=== PATIENT | female | born 1935 | race Caucasian/White ===

== ENCOUNTER 2022-10-19 12:48 | Emergency (ER) | payer OTHER, SELFPAY ==
--- NOTE | ~2022-10-19 | US_ITS ---
EXAMINATION: US venous doppler [facility] DATE: 10/19/2022 14:37 INDICATION: Left lower limb pain. TECHNIQUE: Grayscale ultrasound images without and with compression and Doppler ultrasound images of the left lower extremity veins were obtained. COMPARISON: None. FINDINGS: The visualized portions of left common femoral vein, profunda (deep) femoral vein, popliteal vein, pe roneal veins, posterior tibial veins, and greater saphenous vein outflow are patent. There is thrombu s in left femoral vein. Subcutaneous edema is noted. IMPRESSION: 1. Deep vein thrombosis involving left femoral vein. I called this result to Dr. Gonzalez. Reviewed, dictated and finalized at location A. IMPRESSION: 1. Deep vein thrombosis involving left femoral vein. I called this result to Quiana Gonzalez.
[2022-10-19 12:50] VITALS: BP 152/72; PULSE 70; RESP 16; O2SAT 98
[2022-10-19 13:28] LABS: Basophils Percent Auto 0.6 % (0.2-1.2); Eosinophils Absolute Auto 0.1 K/mm3 (0-0.3); Eosinophils Percent Auto 0.9 % (0-4.4); Hematocrit 34.4 % (37.0-47.0); Hemoglobin 11.1 g/dL (12.0-15.0); Immature Granulocyte Absolute 0.02 K/mm3 (0.00-0.031); Immature Granulocyte Percent A 0.4 % (0-0.5); Mean Corpuscular HGB Conc 32.3 g/dl (32-36); Mean Corpuscular Hemoglobin 32.1 pg (26-34); Mean Corpuscular Volume 99.4 fl (80-100); Mean Platelet Volume 9.2 fl (7.4-10.4); Monocytes Absolute Auto 0.6 K/mm3 (0.1-0.6); Neutrophils Absolute Auto 3.8 K/mm3 (1.3-6.7); Neutrophils Percent Auto 71.1 % (45.5-73.1); Platelet Count Result 144 k/mm3 (150-375); Red Blood Count 3.46 M/mm3 (4.2-5.4); Red Cell Distribution Width 13.2 % (11.5-14.5); White Blood Count 5.3 K/mm3 (4.5-10.0)
--- NOTE | 2022-10-19 13:36 | PC.NURSE ---
[facility] called to get report for US study. VM left for return phone call.
[2022-10-19 13:39] LABS: INR 1.2; Prothrombin Time 15.1 Seconds (11.1-14.7)
[2022-10-19 13:47] LABS: Alanine Aminotransferase 16 U/L (6-35); Albumin Level 3.6 g/dL (3.5-5.1); Alkaline Phosphatase 70 U/L (38-126); Anion Gap 2 mmol/L (8-16); Aspartate Amino Transferase 21 U/L (14-36); Bilirubin,Total 0.5 mg/dL (0.2-1.3); Blood Urea Nitrogen 42 mg/dL (7-17); Calcium 8.4 mg/dL (8.4-10.2); Carbon Dioxide 32 mmol/L (22-30); Chloride 102 mmol/L (98-107); Estimated CRCL calculation 24 ml/min; Estimated Glomerular Filt Rate 28; Glucose 118 mg/dL (65-110); Potassium 4.2 mmol/L (3.4-5.0); Sodium 136 mmol/L (137-145)
--- NOTE | 2022-10-19 14:09 | PC.NURSE ---
Dr. Gonzalez requesting Doppler report from [facility]. Called and they state they do not have a hard copy of the report and that [employer] called them to let them know. Dr. Gonzalez made aware.
--- NOTE | 2022-10-19 14:17 | ED.GENADULT ---
HPI - General Adult General Chief complaint: Extremity Problem,Nontraumatic Stated complaint: dvt Time Seen by Provider: 10/19/22 12:56 Source: RN notes reviewed and other (USP) History of Present Illness HPI narrative: Patient presents emergency department for [facility] via EMS for left leg DVT. The history is limited per the patient as she is a poor historian and we did call the facility and spoke with the facility. Patient had an ultrasound performed at the facility today to evaluate for a left leg DVT secondary to some redness to the patient's leg they were called and told that the ultrasound was positive but they do not actually have a formal report and are unable to send in a report the patient was sent for further evaluation following these findings of DVT. The patient does have a history of being on Eliquis and has a history of DVT in her records the patient currently is laying in bed she has no complaints at this time she denies any chest pain or shortness of breath she denies any pain in her legs Related Data Allergies Allergy/AdvReac Type Severity Reaction Status Date / Time codeine Allergy Other Verified 10/19/22 13:01 Review of Systems Review of Systems: Gen.: Denies fevers Respiratory: Denies shortness of breath CV: Denies chest pain GI: Denies abdominal pain nausea, emesis Musculoskeletal: see HPI Neuro: Denies headache Skin: Reports left leg redness Except as documented, all other systems reviewed and negative [facility] Past Medical History Medical History (Updated 10/19/22 @ 16:05 by Latrell Gonzalez DO) DVT (deep venous thrombosis) Social History Social History (Updated 10/19/22 @ 14:22 by Latrell Gonzalez DO) Smoking status: Never smoker Exam Narrative: APPEARANCE: No acute distress, nontoxic, resting in bed EYES: EOMI HEENT: Normocephalic, atraumatic, RESPIRATORY: No respiratory distress Clear to auscultation bilaterally with no rhonchi wheezing or rales. CARDIOVASCULAR: Regular rate and rhythm without murmurs rubs or gallops. ABDOMINAL: Soft, nontender, nondistended, no rebound or guarding MUSCULOSKELETAl: Moves all extremities. No clubbing, cyanosis 3+ edema of the bilateral lower extremities the left lower extremity has erythema proximal to the left ankle up to the midshin that is over the anterior medial lateral leg but is not over the posterior leg and is not circumferential there is no open wounds or drainage there is no tenderness over the left ankle or knee bilateral dorsalis pedis pulses are 2+ NEURO: Awake and alert. Following commands, speech normal, no focal deficits SKIN:: Warm, dry. No rashes lesions or abrasions PSYCHIATRIC: Normal affect/mood, Course Course Emergency Course: Referred and reviewed group home records the patient has a history of DVT as well as atrial fibrillation she is on Eliquis 2.5 mg twice daily currently. The patient was also started on Keflex Called and discussed with Kalyan presentation work-up at this time as the patient has a DVT recommends that Eliquis be increased to 5 mg twice a day and for the patient to follow-up with him as an outpatient in the office Called and discussed with THELMA Sheldon for Dr. Robb and the patient's PCP discussed the change in Eliquis dose as well as her continued Keflex she agrees with plan for return to facility with follow-up as an outpatient Discussed with patient results of workup and diagnosis. Discussed need for follow-up with primary care, proper use of medication, and reasons to return to the emergency department. Patient understands and agrees to current treatment plan Vital Signs Vital signs: Vital Signs Pulse Rate 70 10/19/22 12:50 Respiratory Rate 16 10/19/22 12:50 Blood Pressure 152/72 H 10/19/22 12:50 Pulse Oximetry 98 10/19/22 12:50 Pulse Rate 70 10/19/22 12:50 Respiratory Rate 16 10/19/22 12:50 Blood Pressure 152/72 H 10/19/22 12:50 Pulse Oximetry 98 10/19/22 12:50
[2022-10-19] MEDS: APIXABAN 5 MG TABLET PO (15:58)
[2022-10-19 15:59] VITALS: BP 159/59; PULSE 66; RESP 18; O2SAT 99
[2022-10-19 18:54] VITALS: BP 150/67; PULSE 89; RESP 20; O2SAT 97
== END 2022-10-19 18:58 ==
PROVIDERS: Emergency Provider Emergency Medicine; PCP Internal Medicine
DX: I82.402 Acute embolism and thrombosis of unspecified deep veins of left lower extremity (principal)
CPT/HCPCS: 36415; 80053; 85025; 85610; 85730; 93971; 99284; A9270

== ENCOUNTER 2023-01-07 15:19 | Emergency (ER) | payer OTHER, SELFPAY ==
--- NOTE | ~2023-01-07 | XR_ITS ---
EXAMINATION: XR tibia fibula LT 2V DATE: 01/07/2023 16:47 INDICATION: Fall with skin tear at the left lower leg TECHNIQUE: Anteroposterior and lateral views of the left tibia and fibula were obtained. COMPARISON: None. FINDINGS: Laceration at the anterolateral distal left lower leg. No radiopaque foreign bodies. Bone alignment i s normal. No fracture. Tricompartmental osteoarthritis at the left knee, severe at the lateral compar tment with remodeling of the lateral tibial plateau. Small left knee joint effusion. Mild osteoarthri tis without joint effusion at the left ankle. Additional mild osteoarthritis at a few of the tarsal m etatarsal joints and at the first metatarsophalangeal joint. Small Achilles and plantar calcaneal spu rs. Diffuse subcutaneous edema throughout the left calf. IMPRESSION: 1. Laceration at the anterolateral distal left lower leg. No radiopaque foreign bodies or acute osseo us abnormality. 2. 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 Reviewed, dictated and finalized at location A. IMPRESSION: 1. Laceration at the anterolateral distal left lower leg. No radiopaque foreign bodies or acute osseous abnormality. 2. 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
[2023-01-07 15:23] VITALS: BP 138/60; PULSE 62; RESP 16; O2SAT 99
--- NOTE | 2023-01-07 16:33 | ED.GENADULT ---
HPI - General Adult General Chief complaint: Wound/Laceration <Lupillo Ventura PA-C - Last Filed: 01/07/23 20:52> Stated complaint: leg lac <GUME Holcomb Last Filed: 01/07/23 20:52> Time Seen by Provider: 01/07/23 15:41 <GUME Holcomb Last Filed: 01/07/23 20:52> Source: patient <GUME Holcomb Last Filed: 01/07/23 20:52> Mode of arrival: ambulatory <GUME Holcomb Last Filed: 01/07/23 20:52> Limitations: dementia <GUME Holcomb Last Filed: 01/07/23 20:52> History of Present Illness HPI narrative: History somewhat limited due to underlying dementia. Alert and oriented x2 at baseline. This is a 87-year-old female with PMH of dementia who presents the ED via EMS from [facility] with chief complaint of a left lower leg laceration following an injury this morning. Per EMS she was transferring from wheelchair when she slipped and had the leg go down the side of the chair and skin was caught on a piece of metal. Nursing staff witnessed the fall. They state that she did not hit her head and that she did not lose consciousness. Patient reports pain in the left lower leg only. Denies any further site of injury. She is on Eliquis. Denies numbness, weakness. <Lupillo Ventura PA-C - Last Filed: 01/07/23 20:52> Related Data Allergies/adverse reactions: Allergies Allergy/AdvReac Type Severity Reaction Status Date / Time codeine Allergy Other Verified 01/07/23 19:49 <GUME Holcomb Last Filed: 01/07/23 20:52> Review of Systems Review of Systems: CONSTITUTIONAL: Denies fever, chills, or sweats. EYES: Denies visual changes, redness, or discharge. ENT: Denies rhinorrhea, congestion, sore throat, or otalgia. CARDIOVASCULAR: Denies chest pain, palpitations, or edema. RESPIRATORY: Denies cough or dyspnea. GASTROINTESTINAL: Denies abdominal pain, nausea, vomiting, or diarrhea. GENITOURINARY: Denies dysuria or hematuria. SKIN: See HPI MUSCULOSKELETAL: Denies back pain, joint pain, or myalgia. NEUROLOGIC: Denies headache, numbness, dizziness, or weakness. PSYCHIATRIC: Denies anxiety or depression. <Lupillo Ventura PA-C - Last Filed: 01/07/23 20:52> [facility] Past Medical History Medical History: Medical History (Updated 01/08/23 @ 00:00 by Ayo Law) DVT (deep venous thrombosis) <Lupillo Ventura PA-C - Last Filed: 01/07/23 20:52> Social History Social History: Social History (Updated 10/19/22 @ 14:22 by Latrell Gonzalez DO) Smoking status: Never smoker <Lupillo Ventura PA-C - Last Filed: 01/07/23 20:52> Exam Narrative: GENERAL: Well-appearing, well-nourished, and in no acute distress. HEAD: Normocephalic, atraumatic. EYES: PERRLA and EOMI. ENT: Nares clear, no rhinorrhea or epistaxis. Mucous membranes moist. Oropharynx without tonsillar hypertrophy exudate or other lesions. NECK: Supple. No adenopathy or masses. CHEST: No respiratory distress. Clear to auscultation. No wheezes rales or rhonchi HEART: Regular rate and rhythm. No murmur heard. Normal peripheral pulses. ABDOMEN: Soft, nontender, nondistended, normal active bowel sounds. EXTREMITIES: No tenderness throughout the joints or extremities. Normal range of motion. SKIN: Left lateral calf has a skin flap laceration that is angulated. Approximately 8 cm in total length. Bleeding is controlled. Chronic venous stasis changes to bilateral legs. Otherwise warm, dry, no rash. NEURO: Alert and oriented x2. She is at her baseline status. No focal deficits. PSYCH: Normal mood and affect. <Lupillo Ventura PA-C - Last Filed: 01/07/23 20:52> Course [employer]/PA Physician Supervision For this patient encounter, I reviewed the SERV[employer]ER [employer] or PA documentation, treatment plan, and I was responsible for the medical decision making; and I had [id number] time with this patient. <Toño Nix MD - Last Filed: 01/08/23 18:07> Vital Signs Vital signs: Vital
[2023-01-07 18:08] VITALS: BP 126/61; PULSE 88; RESP 14; O2SAT 100
[2023-01-07 19:28] VITALS: BP 147/71; PULSE 57; RESP 16; TEMP 36.7; O2SAT 99
[2023-01-07 20:15] VITALS: BP 116/73; PULSE 58; RESP 16; O2SAT 98
== END 2023-01-07 20:15 ==
PROVIDERS: Emergency Provider Physician Assistant; PCP Internal Medicine
DX: S81.812A Laceration without foreign body, left lower leg, initial encounter (principal); Z86.718 Personal history of other venous thrombosis and embolism; Z79.01 Long term (current) use of anticoagulants; W05.0XXA Fall from non-moving wheelchair, initial encounter
CPT/HCPCS: 12004; 73590; 99283

== ENCOUNTER 2023-02-08 17:04 | Inpatient (IN) | payer OTHER, SELFPAY ==
[2023-02-08] VITALS (13 sets, daily range): BP systolic 113–148; BP diastolic 51–86; PULSE 100–115; RESP 10–28; TEMP 36.9–38.2; O2SAT 95–98
--- NOTE | ~2023-02-08 | XR_ITS ---
EXAMINATION: XR tibia fibula LT 2V DATE: 02/14/2023 12:11 INDICATION: Left lower leg pain. TECHNIQUE: 2 views of left tibia and fibula on 4 radiograph were obtained. COMPARISON: Left tibia and fibula radiographs 02/08/2023 FINDINGS: There is valgus angulation at the knee. No fracture. The knee demonstrates severe osteoarth ritis of the lateral compartment and mild osteoarthritis of the medial and patellofemoral compartment s. There is diffuse osteopenia. No knee joint effusion. Vascular calcifications are noted. IMPRESSION: 1. Severe left knee osteoarthritis. Reviewed, dictated and finalized at location A.
--- NOTE | ~2023-02-08 | XR_ITS ---
EXAMINATION: XR elbow RT 2V INDICATION: Right elbow pain TECHNIQUE: Two nonstandard views of the right elbow are obtained. COMPARISON: None available FINDINGS: There appears to be an acute transverse fracture of the radial neck. There is moderate to s evere osteoarthritis at the olecranon fossa. No ulnar fracture is identified. IMPRESSION: 1. Possible radial neck fracture, evaluation limited by nonstandard projections. Reviewed, dictated and finalized at location B. IMPRESSION: 1. Possible radial neck fracture, evaluation limited by nonstandard projections .
--- NOTE | ~2023-02-08 | XR_ITS ---
EXAMINATION: XR elbow RT 2V INDICATION: Right elbow pain TECHNIQUE: Two views of the right elbow are obtained. COMPARISON: 02/10/2023 FINDINGS: There is moderate to severe osteoarthritis at the olecranon fossa. Again seen is mild irreg ularity of the radial neck which could reflect a nondisplaced fracture. An old healed fracture of the distal humerus is noted. IMPRESSION: 1. Possible nondisplaced fracture of the radial neck. Reviewed, dictated and finalized at location F.
--- NOTE | ~2023-02-08 | CT_ITS ---
EXAMINATION: CT chest abdomen pelvis wo con DATE: 02/08/2023 19:11 INDICATION: CP, dyspnea . TECHNIQUE: Computed tomography (CT) of the chest, abdomen, and pelvis was performed with 100 mL Omnip aque-350 intravenous contrast. Automated exposure control and iterative reconstruction technique were employed. The dose-length product was 1794.66 mGy-cm. COMPARISON: X-ray chest, same date FINDINGS: CHEST: Thoracic aorta: Anemia. Moderate arch calcification. No significant dilation.. Lung parenchyma and airways: Limited by motion artifact, bibasilar scar/atelectasis. Thoracic inlet, axillae and chest wall: 3.4 cm right thyroid nodule. No axillary lymphadenopathy. Mediastinum: Mild dilation of the central pulmonary arteries as can be seen with pulmonary arterial h ypertension. Calcified hilar nodes. Heart and pericardium: Mild cardiomegaly. No pericardial effusion. Coronary artery calcifications: Mild. Pleura: No effusion or mass. Thoracic bones: No acute osseous finding in the chest. Incompletely visualized, uncomplicated appeari ng left shoulder arthroplasty. ABDOMEN/PELVIS: Abdomen images limited by beam hardening and motion. Liver: Normal. Biliary/Gallbladder: Mild dilation without stone or inflammatory change No bile duct dilation. Pancreas: No mass or duct dilation. Spleen: Normal. Adrenals:No mass. Kidneys: No suspicious mass or hydronephrosis. Bilateral atrophy. GI tract: No small or large bowel dilation. Appendix not visualized. Diverticulosis without diverticu litis. Mesentery/Peritoneum: No ascites, mass, or free air. Retroperitoneum: No mass Atherosclerotic abdominal aortic and/or arterial calcifications. IVC filter, in good position. Pelvis: Absent uterus. Normal appearing urinary bladder. Soft Tissues: Dermal thickening over the left hip with subjacent tortuous vessels, likely representin g a skin lesion such as a hemangioma. Soft tissues and body wall otherwise unremarkable. Abdominopelvic bones: No acute osseous finding in the abdomen/pelvis. IMPRESSION: No acute finding in the chest. 3.4 cm right thyroid nodule, consider outpatient thyroid ultrasound fo r further characterization. Mild gallbladder hydrops, without inflammation. No CT evidence of bowel o bstruction or ileus. Reviewed, dictated and finalized at location K. IMPRESSION: No acute finding in the chest. 3.4 cm right thyroid nodule, consider outpatient thyroid ultrasound for further characterization. Mild gallbladder hydrops, wit hout inflammation. No CT evidence of bowel obstruction or ileus.
--- NOTE | ~2023-02-08 | CT_ITS ---
EXAMINATION: CT diagnostic chest wo con DATE: 02/14/2023 17:14 INDICATION: Hypoxia TECHNIQUE: Computed tomography (CT) of the chest was performed without intravenous contrast. The dose -length product (DLP) was 576.85 mGy-cm. Automated exposure control and iterative reconstruction tech [employer] were employed. COMPARISON: 02/08/2023 FINDINGS: Cardiomegaly is noted. There are small pleural effusions. There is mild dependent atelectas is. No pneumothorax is identified. There are no pathologically enlarged thoracic lymph nodes. Calcifi ed coronary artery atherosclerosis is noted. There are changes of left shoulder arthroplasty. There i s moderate to severe osteoarthritis of the right shoulder. There are bridging osteophytes at multiple levels in the spine, consistent with diffuse idiopathic skeletal hyperostosis (DISH). IMPRESSION: 1. Cardiomegaly. 2. Mild dependent atelectasis. Reviewed, dictated and finalized at location F.
--- NOTE | ~2023-02-08 | XR_ITS ---
EXAM: XR tibia fibula LT 2V DATE: 02/08/2023 18:19 HISTORY: open wound to distal anterolateral tib fib . COMPARISON: 01/07/2023. FINDINGS: Severely decreased mineralization. No fracture or dislocation. No lytic or blastic lesion. Severe degenerative change at the left knee. Mild degenerative change in the left ankle. No erosion or periosteal change. Lateral soft tissue defect over the distal tibia/fibula. Diffuse subcutaneous e david. IMPRESSION: No acute osseous finding in the left tibia/fibula. Reviewed, dictated and finalized at location K.
--- NOTE | ~2023-02-08 | XR_ITS ---
EXAMINATION: XR shoulder RT min 2V DATE: 02/14/2023 13:15 INDICATION: Right shoulder fracture. TECHNIQUE: 5 views of right shoulder were obtained. COMPARISON: None. FINDINGS: Bone alignment is normal. There is an old healed fracture of distal humerus. There is sever e osteoarthritis of glenohumeral joint and acromioclavicular joint. IMPRESSION: 1. Polyarticular osteoarthritis. Reviewed, dictated and finalized at location A.
--- NOTE | ~2023-02-08 | XR_ITS ---
EXAMINATION: XR chest 1V portable DATE: 02/14/2023 12:11 INDICATION: Shortness of breath. TECHNIQUE: A single frontal view of the chest was obtained. COMPARISON: Chest single view 02/08/2023, chest CT 02/08/2023 FINDINGS: There is mild atelectasis in the right lower lung zone. Calcified left hilar lymph nodes ar e consistent with old granulomatous disease. No pleural effusion or pneumothorax. Cardiomegaly is not ed. There is a left shoulder arthroplasty. IMPRESSION: 1. Mild atelectasis in right lower lung zone. 2. Cardiomegaly. Reviewed, dictated and finalized at location A.
--- NOTE | ~2023-02-08 | XR_ITS ---
EXAMINATION: XR chest 1V portable Exam Date/Time: 02/08/2023 17:15 CDT HISTORY: dyspnea Comparison: None. RESULT: Lines, tubes, and devices: Uncomplicated partially visualized left shoulder arthroplasty. Lungs and pleura: Cephalized vessels as can be seen with pulmonary vascular congestion. Senescent ch anges. No focal consolidation. Streaky bibasilar atelectasis/scar. Cardiomediastinal silhouette: Heart size accentuated by technique. Calcified hilar nodes. Other: No acute osseous finding. Multiple loops of borderline dilated small bowel in the upper abdom en. IMPRESSION: Pulmonary vascular congestion. Multiple borderline dilated upper abdominal small bowel loops, may rep resent ileus/obstruction, consider three-view abdominal series for confirmation. Reviewed, dictated and finalized at location K. IMPRESSION: Pulmonary vascular congestion. Multiple borderline dilated upper abdominal smal l bowel loops, may represent ileus/obstruction, consider three-view abdominal s eries for confirmation.
--- NOTE | 2023-02-08 17:15 | ECG_ITS ---
Measurements Intervals [place] Rate: 106 P: 70 NE: 183 QRS: -7 QRSD: 105 T: 7 QT: 329 QTc: 438 Interpretive Statements SINUS TACHYCARDIA BORDERLINE T WAVE ABNORMALITY- INFERIOR LEADS BASELINE ARTIFACT- I, II, III, AVR, AVL, AVF, V1, V3-V6 ABNORMAL ECG NO PREVIOUS ECG AVAILABLE FOR COMPARISON Electronically Signed On 02-08-2023 18:07:11 CDT by Mayito Gutiérrez D.O.
--- NOTE | 2023-02-08 17:31 | ED.SOB ---
HPI - SOB/Dyspnea General Chief Complaint: Shortness of Breath/Dyspnea <Yasemin Grullon PA-C - Last Filed: 02/09/23 00:26> Stated Complaint: SOB <Yasemin Grullon PA-C - Last Filed: 02/09/23 00:26> Time Seen by Provider: 02/08/23 17:15 <Yasemin Grullon PA-C - Last Filed: 02/09/23 00:26> History of Present Illness HPI Narrative: 87-year-old female with a history of CHF, COPD, DVT reports via EMS from [facility] and rehab for evaluation of acute onset shortness of breath that occurred 3.5 hours prior to arrival. Patient is complaining of difficulty breathing and intermittent anterior chest pain that radiates to her back started on the onset of symptoms. She was given a neb treatment per senior care and a neb treatment en route without relief. She was put on 2L of O2 in the room and satting 97%. She reports she does not normally wear oxygen at baseline. Pt reports increased swelling in her legs and an intermittent cough. Denies fever, abdominal pain, n/v/d. Last BM was yesterday. <Yasemin Grullon PA-C - Last Filed: 02/09/23 00:26> Related Data Home Medications: Home Medications Medication Instructions Recorded Confirmed Dulcolax (bisacodyl) 10 mg PO DAILY 02/08/23 02/08/23 Klor-Con 10 10 meq PO DAILY 02/08/23 02/08/23 Miralax 17 g PO DAILY 02/08/23 02/08/23 Voltaren 1 % topical BID 02/08/23 02/08/23 amiodarone 100 mg tablet 100 mg PO DAILY 02/08/23 02/08/23 aspirin 81 mg PO DAILY 02/08/23 02/08/23 cholecalciferol (vitamin D3) 1,000 unit PO DAILY 02/08/23 02/08/23 citalopram 20 mg tablet 20 mg PO DAILY 02/08/23 02/08/23 ferrous sulfate 352 mg PO DAILY 02/08/23 02/08/23 furosemide 20 mg tablet 60 mg PO DAILY 02/08/23 02/08/23 ipratropium-albuterol 3 ml inhalation QID 02/08/23 02/08/23 magnesium 500 mg PO DAILY 02/08/23 02/08/23 silver sulfadiazine 1 % topical DAILY 02/08/23 02/08/23 spironolactone 25 mg tablet 25 mg PO DAILY 02/08/23 02/08/23 <Yasemin Grullon PA-C - Last Filed: 02/09/23 00:26> Allergies/Adverse Reactions: Allergies Allergy/AdvReac Type Severity Reaction Status Date / Time codeine Allergy Other Verified 02/08/23 17:23 <Yasemin Grullon PA-C - Last Filed: 02/09/23 00:26> Review of Systems Review of Systems: CONSTITUTIONAL: Denies fever, chills EYES: Denies visual changes, redness, or discharge. ENT: Denies rhinorrhea, congestion, sore throat, or otalgia. CARDIOVASCULAR: See HPI RESPIRATORY: See HPI GASTROINTESTINAL: Denies abdominal pain, nausea, vomiting, or diarrhea. GENITOURINARY: Denies dysuria or hematuria. SKIN: Denies rash or itching. MUSCULOSKELETAL: See HPI NEUROLOGIC: Denies headache, numbness, dizziness, or weakness. PSYCHIATRIC: Denies anxiety or depression. <Yasemin Grullon PA-C - Last Filed: 02/09/23 00:26> [facility] Past Medical History Medical History: Medical History (Updated 02/11/23 @ 08:33 by Srinivas Stone MD) Arthritis of elbow, right, degenerative CHF (congestive heart failure) COPD (chronic obstructive pulmonary disease) DVT (deep venous thrombosis) 10/19/22 Left lower extremity venous Doppler showed DVT involving left femoral vein. Previously on Eliquis with dose increased. History of atrial fibrillation <Yasemin Grullon PA-C - Last Filed: 02/09/23 00:26> Social History Social History: Social History Smoking status: Never smoker Alcohol intake: never Substance use: never Substance use type: does not use Lack of Transportation: No Lack of Food: Never True Current Housing: I Have Housing Concerned About Future Housing: No Difficulty Paying Gas/Electric Bills: No Difficulty Paying for Meds: No Currently Unemployed: No Education: High School Diploma/GED Difficulty w/ Childcare or Family Care: No Spiritual care concerns: No <Yasemin Grullon PA-C - Last Filed: 02/09/23 00:26> Exam Narrative: GENERAL: Patient
[2023-02-08] MEDS: IPRATROPIUM BR 0.02% INH SOLN 0.5 MG/2.5 ML VIAL INHALATION (17:50)
[2023-02-08] MEDS: ALBUTEROL SULFATE NEB 2.5 MG/3 ML INH INHALATION (17:50)
[2023-02-08 17:56] LABS: Basophils Percent Auto 0.2 % (0.2-1.2); Eosinophils Percent Auto 0.1 % (0-4.4); Hematocrit 31.2 % (37.0-47.0); Hemoglobin 9.3 g/dL (12.0-15.0); Immature Granulocyte Absolute 0.05 K/mm3 (0.00-0.031); Immature Granulocyte Percent A 0.5 % (0-0.5); Lymphocytes Absolute Auto 1.62 K/mm3 (0.9-3.2); Lymphocytes Percent Auto 17.5 % (18.3-44.2); Mean Corpuscular HGB Conc 29.8 g/dl (32-36); Mean Corpuscular Hemoglobin 30.2 pg (26-34); Mean Corpuscular Volume 101.3 fl (80-100); Mean Platelet Volume 9.4 fl (7.4-10.4); Monocytes Absolute Auto 0.7 K/mm3 (0.1-0.6); Monocytes Percent Auto 7.7 % (2.6-8.5); Neutrophils Absolute Auto 6.9 K/mm3 (1.3-6.7); Platelet Count Result 190 k/mm3 (150-375); Red Blood Count 3.08 M/mm3 (4.2-5.4); Red Cell Distribution Width 15.2 % (11.5-14.5); White Blood Count 9.3 K/mm3 (4.5-10.0)
[2023-02-08 17:56] LABS: Alveolar/Arterial O2 Gradient 89.9 mmHg; Base Excess ABG -1.7 mEq/l (+/-2.0); Fractional Inspired Oxygen 28 %; HCO3 ABG 21.9 mEq/l (22.0-26.0); Oxygen Content ABG 16.3 %vol (16.0-22.0); Oxygen Saturation ABG 94.7 % (95.0-100.0); Oxyhemoglobin 92.7 % THb (90.0-100.0); PCO2 ABG 33.7 mmHg (35.0-45.0); Total Hemoglobin 12.5 g/dL (12.0-18.0); pH ABG 7.431 (7.350-7.450)
[2023-02-08] MEDS: ASPIRIN 81 MG CHEWABLE TABLET 324 MG PO (17:56)
[2023-02-08] MEDS: MAGNESIUM SULF 2 GM/WATER 50ML 2 GM/50 ML BAG IVPB (17:57)
[2023-02-08 17:58] LABS: Device NASAL CANNULA; Modified Allen's Test Pass; Site Drawn RIGHT RADIAL
[2023-02-08 18:10] LABS: Lactic Acid Reflex 2.3 mmol/L (0.7-2.0)
[2023-02-08 18:16] LABS: Platelet Estimate Adequate (Adequate); Schistocytes None Seen (NORMAL)
[2023-02-08 18:17] LABS: Anisocytosis 1+ (NORMAL); Hypochromasia 1+ (NORMAL); INR 1.5; Prothrombin Time 18.9 Seconds (11.1-14.7)
[2023-02-08 18:18] LABS: Partial Thromboplastin Time 32.3 SECONDS (22.3-36.8)
[2023-02-08 18:50] LABS: Alanine Aminotransferase 17 U/L (6-35); Albumin Level 3.9 g/dL (3.5-5.1); Alkaline Phosphatase 66 U/L (38-126); Anion Gap 11 mmol/L (8-16); Aspartate Amino Transferase 26 U/L (14-36); Bilirubin,Total 0.6 mg/dL (0.2-1.3); Blood Urea Nitrogen 49 mg/dL (7-17); Calcium 8.4 mg/dL (8.4-10.2); Carbon Dioxide 23 mmol/L (22-30); Chloride 103 mmol/L (98-107); Estimated CRCL calculation 28 ml/min; Estimated Glomerular Filt Rate 28; Glucose 142 mg/dL (65-110); Lipase 84 U/L (23-300); Potassium 4.5 mmol/L (3.4-5.0); Sodium 137 mmol/L (137-145)
[2023-02-08 19:02] LABS: NT Pro B Type Natriuretic Pept 2470 pg/mL (19.9-100); Troponin I 0.013 ng/mL (0.000-0.034)
[2023-02-08] MEDS: ONDANSETRON INJ 4 MG/2 ML VIAL IV PUSH (19:18)
[2023-02-08 19:21] LABS: Influenza A QL RT-PCR Negative (Negative); Influenza B QL RT-PCR Negative (Negative); SARS-CoV-2 RNA PCR Negative (Negative)
[2023-02-08] MEDS: PIPERACILLIN/TAZ 2.25G/NS 50ML 2.25 GM/50 ML BAG IVPB (19:25)
[2023-02-08 20:03] LABS: Appearance Urine Clear (Clear); Bilirubin Urine Negative (Negative); Blood Urine Negative (Negative); Color Urine Yellow (Yellow); Glucose Urine UA Negative (Negative); Ketones Urine Negative (Negative); Leukocyte Esterase Ur Negative LEU/UL (Negative); Nitrate Urine Negative (Negative); Protein Urine Negative (Negative); Specific Grav Ur 1.011 (1.001-1.035); Urobilinogen Urine 0.2 mg/dL (<2.0)
[2023-02-08] MEDS: FUROSEMIDE INJ 40 MG/4 ML VIAL 20 MG IV PUSH (20:11)
[2023-02-08 20:13] LABS: Add Urine Microscopic? NO
[2023-02-08 20:52] LABS: Reflex Lactic Acid Yes or No Add Lactic
[2023-02-08 21:25] LABS: Troponin I 0.025 ng/mL (0.000-0.034)
[2023-02-08 21:27] LABS: Lactic Acid 2.1 mmol/L (0.7-2.0)
--- NOTE | 2023-02-08 22:20 | PM.IMHP ---
H&P: HPI History of Present Illness Date/Time: 02/08/23 22:20 Chief Complaint: Worsening shortness of breaths. Narrative: This is an 87-year-old lady with a past medical history including but not limited to deep venous thrombosis, chronic wound, CHF, COPD, DVT reports via EMS from [facility] and rehab for evaluation of acute onset shortness of breath that occurred 3.5 hours prior to arrival.? at baseline the patient was not previously on oxygen supplementation. Patient Started complaining of difficulty breathing and intermittent anterior chest pain that radiates to her back started on the onset of symptoms.? She was given a neb treatment per group home and a neb treatment en route without relief. She was started on 2L of O2 in the room and saturating 97%. Pt endorses increased swelling in her legs and an intermittent cough. Denies fever, abdominal pain, n/v/d. Last BM was yesterday. in the emergency department she was found to have a temperature of 98.4? 5 night, pulse rate 108, respiration 24, blood pressure 148/83, pulse ox 98% on 2 L. on repeat examination her temperature alexander to 100.7. Her CBC showed a WBC of 9.3, hemoglobin 9.3, hematocrit 31.2 and a platelet count of 190. Her chemistry shows a sodium of 137, potassium 4.5, chloride 103, bicarbonate 23, BUN 49 creatinine 1.7. Chest x-ray reveals pulmonary vascular congestion. Chest abdomen pelvis CT shows no acute finding in the chest. 3.4 cm right thyroid nodule, consider outpatient thyroid ultrasound for further characterization. Mild gallbladder hydrops, without inflammation. No CT evidence of bowel obstruction or ileus. The patient met sepsis criteria with fever, tachycardia; a source of infection was identified with an infected ulcer of her skin. out of consideration for history of CHF, with a chest x-ray S suggesting pulmonary vascular congestion, the patient was started on Lasix with 20 mg IV push 1 time giving in the ED. amiodarone was restarted. She is on chronic anticoagulation with Eliquis. She you was appropriately started on broad-spectrum antibiotic count of consideration for a chronic with infection. Wound team has been consulted and surgery has been consulted for local debridement. Review of Systems Review of Systems: CONSTITUTIONAL: Positive for fevers.Negative for chills, night sweats, tiredness, fatigue, malaise, anorexia or weight loss. CARDIOVASCULAR: Negative for chest pain, palpitations, dizziness, orthopnea or lower extremity edema. RESPIRATORY: Negative for shortness of breath, cough, wheezing, sputum. GASTROENTEROLOGY: Negative for nausea vomiting abdominal pain. GENITOURINARY: Negative for frequency, nocturia, dysuria, hematuria. GYNECOLOGIC: Negative for abnormal bleeding. HEMATOLOGIC: Negative for any abnormal bleeding or bruising. MUSCULOSKELETAL: Negative for joint swelling, stiffness or pain. SKIN: Positive for chronic infected wound.Negative for rashes, eruptions, lesions or dryness. NEUROLOGIC: Negative for any focal neurologic complaints. PSYCHIATRIC: Negative for anxiety, panic, depression. [facility] Past Medical History Medical History DVT (deep venous thrombosis) Social History Social History Smoking status: Never smoker Alcohol intake: never Substance use: never Substance use type: does not use Lack of Transportation: No Lack of Food: Never True Current Housing: I Have Housing Concerned About Future Housing: No Difficulty Paying Gas/Electric Bills: No Difficulty Paying for Meds: No Currently Unemployed: No Education: High School Diploma/GED Difficulty w/ Childcare or Family Care: No Spiritual care concerns: No Meds Home Medications and Allergies Home Medications Medication Instructions Recorded Confirmed Type apixaban 5 mg tablet (Eliquis) 5 mg PO BID #30 tabs 0
[2023-02-08 23:09] LABS: Hemoglobin A1C 5.1 % (<5.7)
[2023-02-08] MEDS: ACETAMINOPHEN 325 MG TABLET 650 MG PO (23:21)
[2023-02-09] VITALS (13 sets, daily range): BP systolic 113–140; BP diastolic 37–55; PULSE 66–86; RESP 16–26; TEMP 36.4–37.9; O2SAT 90–100
[2023-02-09 00:42] LABS: Troponin I 0.061 ng/mL (0.000-0.034)
[2023-02-09] MEDS: PIPERACILLIN/TAZ 2.25G/NS 50ML 2.25 GM/50 ML BAG IVPB ×4 (03:21→20:59)
[2023-02-09 06:41] LABS: Basophils Percent Auto 0.3 % (0.2-1.2); Hematocrit 25.1 % (37.0-47.0); Hemoglobin 7.9 g/dL (12.0-15.0); Immature Granulocyte Absolute 0.07 K/mm3 (0.00-0.031); Immature Granulocyte Percent A 0.5 % (0-0.5); Lymphocytes Absolute Auto 0.46 K/mm3 (0.9-3.2); Mean Corpuscular HGB Conc 31.5 g/dl (32-36); Mean Corpuscular Hemoglobin 31.2 pg (26-34); Mean Corpuscular Volume 99.2 fl (80-100); Mean Platelet Volume 9.1 fl (7.4-10.4); Monocytes Absolute Auto 0.6 K/mm3 (0.1-0.6); Monocytes Percent Auto 3.6 % (2.6-8.5); Neutrophils Absolute Auto 14.1 K/mm3 (1.3-6.7); Neutrophils Percent Auto 92.6 % (45.5-73.1); Platelet Count Result 144 k/mm3 (150-375); Red Blood Count 2.53 M/mm3 (4.2-5.4); Red Cell Distribution Width 15.2 % (11.5-14.5); White Blood Count 15.2 K/mm3 (4.5-10.0)
[2023-02-09 06:52] LABS: Anion Gap 4 mmol/L (8-16); Blood Urea Nitrogen 46 mg/dL (7-17); Calcium 8.1 mg/dL (8.4-10.2); Carbon Dioxide 31 mmol/L (22-30); Chloride 101 mmol/L (98-107); Estimated CRCL calculation 25 ml/min; Estimated Glomerular Filt Rate 25; Glucose 128 mg/dL (65-110); Potassium 4.2 mmol/L (3.4-5.0); Sodium 136 mmol/L (137-145)
--- NOTE | 2023-02-09 07:14 | ECG_ITS ---
Measurements Intervals [place] Rate: 65 P: 79 DC: 189 QRS: -6 QRSD: 113 T: 15 QT: 439 QTc: 457 Interpretive Statements SINUS RHYTHM WITH SINUS ARRHYTHMIA MODERATE INTRAVENTRICULAR CONDUCTION DELAY [110+ ms QRS DURATION] COMPARED TO ECG 02/08/2023 17:16:50 SINUS RHYTHM NOW PRESENT SINUS ARRHYTHMIA NOW PRESENT Electronically Signed On 02-09-2023 15:29:14 CDT by Vel Guzman M.D.
[2023-02-09] MEDS: ALBUTEROL SULFATE NEB 2.5 MG/3 ML INH INHALATION ×3 (07:39→19:34)
[2023-02-09] MEDS: IPRATROPIUM BR 0.02% INH SOLN 0.5 MG/2.5 ML VIAL INHALATION ×3 (07:39→19:35)
[2023-02-09 08:41] LABS: Troponin I 0.095 ng/mL (0.000-0.034)
--- NOTE | 2023-02-09 08:46 | P.CDI_ITS ---
CDI Query Clarification Request Documented history of CHF. CHF noted on the assessment and plan. Patient receiving Lasix. Lasix listed as a home medication. Elevated BNP on 02/08/23 lab work. Pulmonary vacular congestion noted on the 02/08/23 chest xray. Please specify type and acuity of heart failure if known. * Acute * Chronic * Acute on Chronic * Unknown * Systolic * Diastolic * Combined Systolic and Diastolic * Unknown <Babs Lee RN - Last Filed: 02/09/23 08:49> Clarified Diagnosis Clarified Diagnosis: acute heart failure exacerbation, suspected diastolic but unknown type <Ashly Bynum DO - Last Filed: 02/28/23 08:20>
--- NOTE | 2023-02-09 09:36 | PM.IMPN ---
Progress Note: A&P Assessment and Plan (1) Acute respiratory failure with hypoxia: Code(s): J96.01 - Acute respiratory failure with hypoxia Status: Acute Assessment and Plan: Acute respiratory failure with new oxygen requirement, pulm congestion on CXR, symptoms likely secondary to acutely decompensated CHF vs pna, started lasix 40 mg IV q 12hrs 02/08 (2) COPD exacerbation: Code(s): J44.1 - Chronic obstructive pulmonary disease with (acute) exacerbation Status: Deleted Assessment and Plan: Patient carries a diagnosis of COPD, not in acute exacerbation Continue PRN nebulization (3) Sepsis: Qualifiers: Sepsis acute organ dysfunction status: unspecified Sepsis type: sepsis due to unspecified organism Qualified Code(s): A41.9 - Sepsis, unspecified organism Code(s): A41.9 - Sepsis, unspecified organism Status: Acute Assessment and Plan: Patient meets sepsis criteria, started on broad spectrum IV antibiotics with vanc + zosyn 02/08 Consult surgery for debridement, consult wound care for local care Update: Bld cx + GNB, follow (4) Infected ulcer of skin: Qualifiers: Non-pressure ulcer stage: unspecified non-pressure ulcer stage Qualified Code(s): L98.499 - Non-pressure chronic ulcer of skin of other sites with unspecified severity; L08.9 - Local infection of the skin and subcutaneous tissue, unspecified Code(s): L98.499 - Non-pressure chronic ulcer of skin of other sites with unspecified severity; L08.9 - Local infection of the skin and subcutaneous tissue, unspecified Status: Acute Assessment and Plan: See above (5) DVT (deep venous thrombosis): Code(s): I82.409 - Acute embolism and thrombosis of unspecified deep veins of unspecified lower extremity Status: Acute Assessment and Plan: On chronic anticoagulation with eliquis (6) CHF exacerbation: Qualifiers: Heart failure type: unspecified Qualified Code(s): I50.9 - Heart failure, unspecified Code(s): I50.9 - Heart failure, unspecified Status: Acute Assessment and Plan: Continue lasix 40 mg IV 12hrs Follow up repeat EKG and troponin Continue amiodarone 100 mg PO daily Continue spironolactone 25 mg PO daily Plan CODE STATUS: FULL CODE [facility] Antibiotic: vancomycin and zosyn started 02/08, switch to vanc + cefepime + flagyl 02/10 if not AFVSS and leuk not trending down Diet: regular GI prophylaxis: pepcid DVT prophylaxis: eliquis Subjective Date/time seen: 02/09/23 09:36 Interval history: 87-year-old female with history of heart failure, COPD, DVT is presenting with acute onset of shortness of breath and being treated for sepsis and heart failure exacerbation. No chest pain. No nausea, vomiting or diarrhea. Tmax 100.7 overnight. Review of Systems Review of Systems: ROS unobtainable: Yes unobtainable due to mental status Exam Narrative: General: No acute distress, somnolent HEENT: Atraumatic, normocephalic, mucous membranes moist CV: Regular rate and rhythm, S1, S2 Lungs: Clear to auscultation bilaterally, no rales or crackles noted, no wheezes, good air entry Abdomen: Soft, nontender, nondistended Extremities: Normal to inspection, wound covered on LLE Skin: No rashes noted, no lesions or wounds seen Psych: Unable to assess Objective Data Vital Signs Vital Signs: Vital Signs - 24 hr 02/08/23 17:05 02/08/23 17:10 02/08/23 17:52 Temperature 98.4 F Pulse Rate 108 H 115 H Respiratory Rate 24 H 27 H Blood Pressure 148/83 H Pulse Oximetry 98 98 Oxygen Delivery Nasal Cannula Nasal Cannula Oxygen Flow Rate 2 2 02/08/23 17:17 02/08/23 17:31 02/08/23 17:46 Temperature Pulse Rate 109 H 110 H 111 H Respiratory Rate 21 H 20 26 H Blood Pressure 139/51 L 121/77 130/76 Pulse Oximetry 96 95 97 Oxygen
[2023-02-09] MEDS: AMIODARONE HCL 100 MG TABLET PO (09:40)
[2023-02-09] MEDS: ASPIRIN 81 MG ENTERIC TABLET PO (09:41)
[2023-02-09] MEDS: SPIRONOLACTONE 25 MG TABLET PO (09:41)
[2023-02-09] MEDS: CITALOPRAM HYDROBROMIDE 20 MG TABLET PO (09:41)
[2023-02-09] MEDS: CHOLECALCIFEROL 1,000 UNITS TABLET 1000 UNITS PO (09:41)
[2023-02-09] MEDS: FUROSEMIDE INJ 40 MG/4 ML VIAL IV PUSH ×2 (09:42→16:12)
[2023-02-09] MEDS: BISACODYL 5 MG TABLET EC 10 MG PO (09:42)
[2023-02-09] MEDS: APIXABAN 5 MG TABLET PO ×2 (09:42→20:52)
[2023-02-09] MEDS: SILVERGEL (ELTA) 45 ML 1 APPLIC TOPICAL (09:44)
--- NOTE | 2023-02-09 10:44 | PM.CNGS ---
Assessment and Plan Assessment and plan (1) Wound of left leg: Code(s): S81.802A - Unspecified open wound, left lower leg, initial encounter Status: Acute Assessment and Plan: Left lower leg wound with a large black eschar, but no signs of active infection. In review of her chart, she had a laceration in this location about a month ago and was seen in the ER. She had a single layer closure of the laceration with sutures. It appears the sutures were never removed. I will gather supplies and attempt to remove the sutures today. Will initiate local wound care with silver gel dressing changes daily. (2) CHF exacerbation: Qualifiers: Heart failure type: unspecified Qualified Code(s): I50.9 - Heart failure, unspecified Code(s): I50.9 - Heart failure, unspecified Status: Acute (3) COPD (chronic obstructive pulmonary disease): Code(s): J44.9 - Chronic obstructive pulmonary disease, unspecified Status: Chronic (4) Anticoagulant long-term use: Code(s): Z79.01 - senior living (current) use of anticoagulants Status: Acute Assessment and Plan: On Eliquis for DVT and history of atrial fibrillation. (5) Acute respiratory failure with hypoxia: Code(s): J96.01 - Acute respiratory failure with hypoxia Status: Acute (6) DVT (deep venous thrombosis): Code(s): I82.409 - Acute embolism and thrombosis of unspecified deep veins of unspecified lower extremity Status: Acute Assessment and Plan: October 2022. Currently on Eliquis. Plan I have discussed the patient's case and plan of care with Dr. Plascencia. Thank you for allowing us to see the patient in consultation and we will continue to follow along with you. History of Present Illness Consult details Consult date: 02/09/23 Reason for consult: wound care (Left lower extremity wound) Requesting physician: Bhavani Allen MD Narrative: This is an 87-year-old woman with dementia, CHF, COPD, and history of DVT on Eliquis, who was brought into the ER yesterday from the shelter for evaluation of shortness of breath. She was additionally complaining of chest pain that radiates to her back. She is a poor historian given her dementia, therefore her history is primarily obtained by review of the electronic medical record. In the ER she had a heart rate of 108 with tachypnea. She was placed on 2 L of oxygen with stable oxygen saturations. She was found to have lower extremity edema and a left lower extremity wound in the ER. Labs showed a normal white blood cell count of 9.3, creatinine 1.7, GFR 28, BUN 49, and lactic acid 2.3. BNP was 2470. COVID and flu negative. UA was unremarkable. She was started on broad-spectrum IV antibiotics for possible sepsis. She was admitted to the hospitalist service for CHF exacerbation, hypoxic respiratory failure, and possible sepsis. She is being diuresed. Wound care was consulted for her left lower extremity wound. Our service has also been consulted for surgical evaluation of the left lower extremity wound. She is now seen on the medical floor. She denies any pain or any other complaints at this time. She appears comfortable. In review of her records, she was in the ER about a month ago for an injury to her left lower leg from the shelter. She had a laceration to the left lower lateral leg in the same location to her current wound. She had about an 8 cm skin tear with single layer closure with Nylon sutures. Recommended she follow-up with a plastic surgeon, but I do not see any office visits in her current record. Review of Systems Review of Systems: ROS unobtainable: Yes unobtainable due to mental status PMFSH Past Medical History Medical History (Updated 02/09/23 @ 11:21 by MICHELLE Lawson) CHF (congestive heart failure) COPD (chronic obstructive pulmonary disease) DVT (deep venous thrombosis) 10/19/22 Left lower extremity venous Doppler showed DVT involvin
--- NOTE | 2023-02-09 15:48 | PC.NURSE ---
Pt resting today. Pt is A&O to self. Pt expresses no needs at this time. Pt reports occasional pain in right arm. Pt reports it is the way she is laying. Pt had sutures still in wound on left leg. OBGYN HOSPITALIST PHYSICIAN removed 4 sutures that were visible from wound. Pt tolerated well. Pt to be seen by Dr. Plascencia later today. Will continue to monitor pt.
[2023-02-09] MEDS: ACETAMINOPHEN 325 MG TABLET 650 MG PO (21:04)
[2023-02-10] VITALS (15 sets, daily range): BP systolic 107–112; BP diastolic 36–58; PULSE 59–73; RESP 16–24; TEMP 36.2–36.4; O2SAT 94–100
[2023-02-10] MEDS: IPRATROPIUM BR 0.02% INH SOLN 0.5 MG/2.5 ML VIAL INHALATION ×3 (02:24→20:04)
[2023-02-10] MEDS: ALBUTEROL SULFATE NEB 2.5 MG/3 ML INH INHALATION ×3 (02:24→20:03)
[2023-02-10] MEDS: PIPERACILLIN/TAZ 2.25G/NS 50ML 2.25 GM/50 ML BAG IVPB ×2 (02:31→08:31)
[2023-02-10 06:43] LABS: Basophils Percent Auto 0.2 % (0.2-1.2); Eosinophils Absolute Auto 0.1 K/mm3 (0-0.3); Eosinophils Percent Auto 0.7 % (0-4.4); Hematocrit 25.5 % (37.0-47.0); Hemoglobin 7.8 g/dL (12.0-15.0); Immature Granulocyte Absolute 0.04 K/mm3 (0.00-0.031); Immature Granulocyte Percent A 0.5 % (0-0.5); Lymphocytes Absolute Auto 0.74 K/mm3 (0.9-3.2); Lymphocytes Percent Auto 9.1 % (18.3-44.2); Mean Corpuscular HGB Conc 30.6 g/dl (32-36); Mean Corpuscular Hemoglobin 30.5 pg (26-34); Mean Corpuscular Volume 99.6 fl (80-100); Mean Platelet Volume 9.4 fl (7.4-10.4); Monocytes Absolute Auto 0.7 K/mm3 (0.1-0.6); Neutrophils Absolute Auto 6.6 K/mm3 (1.3-6.7); Neutrophils Percent Auto 81.5 % (45.5-73.1); Platelet Count Result 144 k/mm3 (150-375); Red Blood Count 2.56 M/mm3 (4.2-5.4); Red Cell Distribution Width 15.2 % (11.5-14.5); White Blood Count 8.1 K/mm3 (4.5-10.0)
[2023-02-10 06:49] LABS: Alanine Aminotransferase 14 U/L (6-35); Albumin Level 3.2 g/dL (3.5-5.1); Alkaline Phosphatase 52 U/L (38-126); Anion Gap 8 mmol/L (8-16); Aspartate Amino Transferase 24 U/L (14-36); Bilirubin,Total 0.6 mg/dL (0.2-1.3); Blood Urea Nitrogen 53 mg/dL (7-17); Calcium 8.1 mg/dL (8.4-10.2); Carbon Dioxide 28 mmol/L (22-30); Chloride 100 mmol/L (98-107); Estimated CRCL calculation 24 ml/min; Estimated Glomerular Filt Rate 24; Glucose 87 mg/dL (65-110); Potassium 3.7 mmol/L (3.4-5.0); Sodium 136 mmol/L (137-145)
[2023-02-10] MEDS: AMIODARONE HCL 100 MG TABLET PO (08:30)
[2023-02-10] MEDS: CITALOPRAM HYDROBROMIDE 20 MG TABLET PO (08:31)
[2023-02-10] MEDS: ASPIRIN 81 MG ENTERIC TABLET PO (08:31)
[2023-02-10] MEDS: FUROSEMIDE INJ 40 MG/4 ML VIAL IV PUSH ×2 (08:31→17:20)
[2023-02-10] MEDS: APIXABAN 5 MG TABLET PO ×2 (08:31→20:53)
[2023-02-10] MEDS: SPIRONOLACTONE 25 MG TABLET PO (08:31)
[2023-02-10] MEDS: CHOLECALCIFEROL 1,000 UNITS TABLET 1000 UNITS PO (08:32)
[2023-02-10] MEDS: BISACODYL 5 MG TABLET EC 10 MG PO (08:32)
[2023-02-10] MEDS: SILVERGEL (ELTA) 45 ML 1 APPLIC TOPICAL (08:32)
--- NOTE | 2023-02-10 08:46 | PM.IMPN ---
Progress Note: A&P Assessment and Plan (1) Acute respiratory failure with hypoxia: Code(s): J96.01 - Acute respiratory failure with hypoxia Status: Acute Assessment and Plan: Acute respiratory failure with new oxygen requirement, pulm congestion on CXR, symptoms likely secondary to acutely decompensated CHF vs pna, started lasix 40 mg IV q 12hrs 02/08 02/10: weaned to room air (2) COPD exacerbation: Code(s): J44.1 - Chronic obstructive pulmonary disease with (acute) exacerbation Status: Deleted Assessment and Plan: Patient carries a diagnosis of COPD, not in acute exacerbation Continue PRN nebulization (3) Sepsis: Qualifiers: Sepsis acute organ dysfunction status: unspecified Sepsis type: sepsis due to unspecified organism Qualified Code(s): A41.9 - Sepsis, unspecified organism Code(s): A41.9 - Sepsis, unspecified organism Status: Acute Assessment and Plan: Patient meets sepsis criteria, started on broad spectrum IV antibiotics with vanc + zosyn 02/08 Consult surgery for debridement, consult wound care for local care 01/29/23: 2/2 blood cultures positive for pseudomonas, wound culture positive for proteus, sens pending 02/10: afebrile overnight, cont current management, repeat blood cx ordered, d/c vanc + zosyn, start cefepime, follow cx for sens (4) Infected ulcer of skin: Qualifiers: Non-pressure ulcer stage: unspecified non-pressure ulcer stage Qualified Code(s): L98.499 - Non-pressure chronic ulcer of skin of other sites with unspecified severity; L08.9 - Local infection of the skin and subcutaneous tissue, unspecified Code(s): L98.499 - Non-pressure chronic ulcer of skin of other sites with unspecified severity; L08.9 - Local infection of the skin and subcutaneous tissue, unspecified Status: Acute Assessment and Plan: See above (5) DVT (deep venous thrombosis): Code(s): I82.409 - Acute embolism and thrombosis of unspecified deep veins of unspecified lower extremity Status: Acute Assessment and Plan: On chronic anticoagulation with eliquis (6) CHF exacerbation: Qualifiers: Heart failure type: unspecified Qualified Code(s): I50.9 - Heart failure, unspecified Code(s): I50.9 - Heart failure, unspecified Status: Acute Assessment and Plan: Continue lasix 40 mg IV 12hrs Follow up repeat EKG and troponin Continue amiodarone 100 mg PO daily Continue spironolactone 25 mg PO daily Plan CODE STATUS: FULL CODE [facility] Antibiotic: cefepime Diet: regular GI prophylaxis: pepcid DVT prophylaxis: eliquis Subjective Date/time seen: 02/10/23 08:46 Interval history: 87-year-old female with history of heart failure, COPD, DVT is presenting with acute onset of shortness of breath and being treated for sepsis and heart failure exacerbation. No chest pain. No nausea, vomiting or diarrhea. No fevers overnight, no events. Feels a little better today, more awake. C/o elbow pain, quite severe. Review of Systems Review of Systems: 12 point review of systems was assessed and was negative except as noted in the HPI Exam Narrative: General: No acute distress, somnolent HEENT: Atraumatic, normocephalic, mucous membranes moist CV: Regular rate and rhythm, S1, S2 Lungs: Clear to auscultation bilaterally, no rales or crackles noted, no wheezes, good air entry Abdomen: Soft, nontender, nondistended Extremities: Normal to inspection, wound covered on LLE, LUE with bruising and TTP, unable to assess ROM 2/2 pain Skin: No rashes noted, no lesions or wounds seen Psych: Euthymic, appropriate Objective Data Vital Signs Vital Signs: Vital Signs - 24 hr 02/09/23 09:40 02/09/23 14:34 02/09/23 09:43 Temperature Pulse Rate 81 76 Respiratory Rate 22 H Blood Pressure Pulse Oximetry
--- NOTE | 2023-02-10 13:43 | ECG_ITS ---
Measurements Intervals [place] Rate: 61 P: 81 MT: 185 QRS: 1 QRSD: 108 T: 25 QT: 443 QTc: 447 Interpretive Statements SINUS RHYTHM COMPARED TO ECG 02/09/2023 12:24:03 NO SIGNIFICANT CHANGES Electronically Signed On 02-10-2023 15:29:25 CDT by Vel Guzman M.D.
[2023-02-10] MEDS: CEFEPIME 1 GM/NS 50 ML 1 GM/50 ML BAG IVPB (18:15)
[2023-02-11] VITALS (13 sets, daily range): BP systolic 105–110; BP diastolic 39–52; PULSE 62–89; RESP 16–22; TEMP 36.8–37.1; O2SAT 96–100
[2023-02-11] MEDS: IPRATROPIUM BR 0.02% INH SOLN 0.5 MG/2.5 ML VIAL INHALATION ×4 (02:47→20:36)
[2023-02-11] MEDS: ALBUTEROL SULFATE NEB 2.5 MG/3 ML INH INHALATION ×4 (02:48→20:35)
[2023-02-11 06:37] LABS: Basophils Percent Auto 0.1 % (0.2-1.2); Eosinophils Absolute Auto 0.1 K/mm3 (0-0.3); Hemoglobin 7.5 g/dL (12.0-15.0); Immature Granulocyte Absolute 0.03 K/mm3 (0.00-0.031); Immature Granulocyte Percent A 0.4 % (0-0.5); Lymphocytes Absolute Auto 0.68 K/mm3 (0.9-3.2); Lymphocytes Percent Auto 10.1 % (18.3-44.2); Mean Corpuscular Hemoglobin 29.2 pg (26-34); Mean Corpuscular Volume 97.3 fl (80-100); Mean Platelet Volume 9.4 fl (7.4-10.4); Monocytes Absolute Auto 0.6 K/mm3 (0.1-0.6); Monocytes Percent Auto 8.2 % (2.6-8.5); Neutrophils Absolute Auto 5.4 K/mm3 (1.3-6.7); Neutrophils Percent Auto 80.2 % (45.5-73.1); Platelet Count Result 141 k/mm3 (150-375); Red Blood Count 2.57 M/mm3 (4.2-5.4); Red Cell Distribution Width 14.8 % (11.5-14.5); White Blood Count 6.7 K/mm3 (4.5-10.0)
[2023-02-11 06:50] LABS: Alanine Aminotransferase 15 U/L (6-35); Albumin Level 2.9 g/dL (3.5-5.1); Alkaline Phosphatase 49 U/L (38-126); Anion Gap 4 mmol/L (8-16); Aspartate Amino Transferase 37 U/L (14-36); Bilirubin,Total 0.4 mg/dL (0.2-1.3); Blood Urea Nitrogen 52 mg/dL (7-17); Calcium 7.8 mg/dL (8.4-10.2); Carbon Dioxide 32 mmol/L (22-30); Chloride 98 mmol/L (98-107); Estimated CRCL calculation 24 ml/min; Estimated Glomerular Filt Rate 24; Glucose 97 mg/dL (65-110); Potassium 3.6 mmol/L (3.4-5.0); Sodium 134 mmol/L (137-145)
--- NOTE | 2023-02-11 08:30 | PM.CNOR ---
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 Patient denies trauma or injury to right elbow or arm. Ecchymosis noted over the lateral elbow and forearm both right and left upper extremity. Patient on Eliquis for AFib and DVT left leg. Ecchymosis possibly associated with previous IV placement. More tender at the wrist than the elbow on exam. Nontender over the radial head. Significant crepitus with motion of the elbow and forearm. Radiographs show questionable lucency but this appears to be more related to osteophyte production at the radial neck and head related to her arthritis. Recommend conservative treatment for right elbow arthritis. Ice, elevation and Kuldeep wrap if needed. No fracture treatment or surgical indication. Motion and use of the elbow and arm as tolerated. May consider cortisone injection In the future if medically stable. History of Present Illness HPI Consult date: 02/11/23 Requesting physician: Ashly Bynum DO Chief complaint: right elbow pain Narrative: 87-year-old woman admitted to the hospital for respiratory distress and leg ulcer. Found to have ecchymosis over the right elbow and complaints of pain. Denies injury or known trauma. Pain with motion of the elbow. Denies numbness or tingling. Patient is right-hand dominant. Review of Systems Constitutional: Constitutional: Denies fever(s) Eyes: Eyes: Denies blurry vision ENT: Reports Normal hearing present Cardiovascular: Cardiovascular: Denies chest pain and Denies dyspnea Respiratory: Respiratory: Denies dyspnea and Denies wheezing Gastrointestinal: Gastrointestinal: Denies abdominal pain Genitourinary: Genitourinary: Denies urinary urgency Musculoskeletal: Musculoskeletal: Reports as per HPI and Denies numbness Integumentary/Breasts: Skin/Breast: Denies changing lesions and Denies sores Neurologic: Reports Normal hearing present, Denies behavioral changes, Denies confusion, Denies numbness and Denies convulsions Psychiatric: Psychiatric: Denies behavioral changes, Denies confusion and Denies hallucinations Endocrine: Endocrine: Denies heat intolerance Hematologic/Lymphatic: Hematologic/Lymphatic: Denies easy bleeding Allergic/Immunologic: Allergic/Immunologic: Denies wheezing PMFSH Past Medical History Medical History (Updated 02/11/23 @ 08:33 by Srinivas Stone MD) Arthritis of elbow, right, degenerative CHF (congestive heart failure) COPD (chronic obstructive pulmonary disease) DVT (deep venous thrombosis) 10/19/22 Left lower extremity venous Doppler showed DVT involving left femoral vein. Previously on Eliquis with dose increased. History of atrial fibrillation Social History Social History Smoking status: Never smoker Alcohol intake: never Substance use: never Substance use type: does not use Lack of Transportation: No Lack of Food: Never True Current Housing: I Have Housing Concerned About Future Housing: No Difficulty Paying Gas/Electric Bills: No Difficulty Paying for Meds: No Currently Unemployed: No Education: High School Diploma/GED Difficulty w/ Childcare or Family Care: No Spiritual care concerns: No Meds Home Medications and Allergies Home Medications Medication Instructions Recorded Confirmed Type apixaban 5 mg tablet (Eliquis) 5 mg PO BID #30 tabs 10/19/22 02/08/23 Rx Dulcolax (bisacodyl) 10 mg PO DAILY 02/08/23 02/08/23 History Klor-Con 10 10 meq PO DAILY 02/08/23 02/08/23 History Miralax 17 g PO DAILY 02/08/23 02/08/23 History Voltaren 1 % topical BID 02/08/23 02/08/23 History amiod
--- NOTE | 2023-02-11 08:49 | PM.IMPN ---
Progress Note: A&P Assessment and Plan (1) Sepsis: Qualifiers: Sepsis acute organ dysfunction status: unspecified Sepsis type: sepsis due to unspecified organism Qualified Code(s): A41.9 - Sepsis, unspecified organism Code(s): A41.9 - Sepsis, unspecified organism Status: Acute Assessment and Plan: Patient meets sepsis criteria, started on broad spectrum IV antibiotics with vanc + zosyn 02/08 Consult surgery for debridement, consult wound care for local care 02/08/23: 2/2 blood cultures positive for pseudomonas, sens cefepime/levaquin not zosyn, wound culture positive for proteus, sens pending 02/10: afebrile overnight, cont current management, repeat blood cx ordered, d/c vanc + zosyn, start cefepime, follow cx for sens 02/11: sens back on pseudomonas, still waiting on proteus, will likely be able to de-escalate to levaquin to complete 10-14 day course when repeat blood cultures come back negative, resistant to zosyn, so adequate abx coverage started from 02/10 and negative blood cultures date (2) Acute respiratory failure with hypoxia: Code(s): J96.01 - Acute respiratory failure with hypoxia Status: Acute Assessment and Plan: Acute respiratory failure with new oxygen requirement, pulm congestion on CXR, symptoms likely secondary to acutely decompensated CHF vs pna, started lasix 40 mg IV q 12hrs 02/08 02/10: weaned to room air resolved (3) COPD exacerbation: Code(s): J44.1 - Chronic obstructive pulmonary disease with (acute) exacerbation Status: Deleted Assessment and Plan: Patient carries a diagnosis of COPD, not in acute exacerbation Continue PRN nebulization (4) Infected ulcer of skin: Qualifiers: Non-pressure ulcer stage: unspecified non-pressure ulcer stage Qualified Code(s): L98.499 - Non-pressure chronic ulcer of skin of other sites with unspecified severity; L08.9 - Local infection of the skin and subcutaneous tissue, unspecified Code(s): L98.499 - Non-pressure chronic ulcer of skin of other sites with unspecified severity; L08.9 - Local infection of the skin and subcutaneous tissue, unspecified Status: Acute Assessment and Plan: See above (5) DVT (deep venous thrombosis): Code(s): I82.409 - Acute embolism and thrombosis of unspecified deep veins of unspecified lower extremity Status: Acute Assessment and Plan: On chronic anticoagulation with eliquis (6) CHF exacerbation: Qualifiers: Heart failure type: unspecified Qualified Code(s): I50.9 - Heart failure, unspecified Code(s): I50.9 - Heart failure, unspecified Status: Acute Assessment and Plan: Continue lasix 40 mg IV 12hrs Follow up repeat EKG and troponin Continue amiodarone 100 mg PO daily Continue spironolactone 25 mg PO daily (7) Arthritis of elbow, right, degenerative: Qualifiers: Osteoarthritis type: primary Qualified Code(s): 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, right elbow Code(s): 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, right elbow Status: Acute Assessment and Plan: Elbow pain with abnormal x-ray concerning for possible fracture, appreciate Orthopedic consultation, recommendation is conservative management, no fracture suspected, likely due to severe arthritis Recommended ice, elevation and compression dressing, consider cortisone injection outpatient Plan CODE STATUS: FULL CODE [facility] Antibiotic: cefepime Diet: regular GI prophylaxis: pepcid DVT prophylaxis: eliquis Subjective Date/time seen: 02/11/23 08:49 Interval history: 87-year-old female with history of heart failure, COPD, DVT is presenting with acute onset of shortness of breath and being treated for sepsis and heart failure exacerbation. No overnight events noted. No chest pain or shortness of breath. No nausea, vomiting or diarrhea. N
[2023-02-11] MEDS: CHOLECALCIFEROL 1,000 UNITS TABLET 1000 UNITS PO (08:50)
[2023-02-11] MEDS: SPIRONOLACTONE 25 MG TABLET PO (08:50)
[2023-02-11] MEDS: AMIODARONE HCL 100 MG TABLET PO (08:51)
[2023-02-11] MEDS: APIXABAN 5 MG TABLET PO ×2 (08:52→20:18)
[2023-02-11] MEDS: ASPIRIN 81 MG ENTERIC TABLET PO (08:52)
[2023-02-11] MEDS: BISACODYL 5 MG TABLET EC 10 MG PO (08:52)
[2023-02-11] MEDS: CEFEPIME 1 GM/NS 50 ML 1 GM/50 ML BAG IVPB ×2 (08:53→20:17)
[2023-02-11] MEDS: SILVERGEL (ELTA) 45 ML 1 APPLIC TOPICAL (08:57)
--- NOTE | 2023-02-11 09:38 | PC.NURSE ---
I, Radha Ring ([facility] [place]), passed all of the meds at 0852 not JND.
[2023-02-11 10:38] LABS: Lactic Acid Reflex 1.7 mmol/L (0.7-2.0)
[2023-02-11] MEDS: FUROSEMIDE 40 MG TABLET PO (10:46)
[2023-02-11 11:04] LABS: CRP 14.2 mg/dL (<1.0)
[2023-02-11 11:06] LABS: Troponin I 0.035 ng/mL (0.000-0.034)
[2023-02-11 12:22] LABS: Procalcitonin 0.9 ng/mL
--- NOTE | 2023-02-11 16:08 | PC.NURSE ---
Pt has reported pain in the left arm. Pt able to help feed self. Pt does not express any needs. Pt participates and contributes in plan of care. Pt is a Q2 turn. Pt compliant with repositioning. Pt tolerates well. Will continue to monitor pt.
[2023-02-12] VITALS (14 sets, daily range): BP systolic 104–121; BP diastolic 47–66; PULSE 70–84; RESP 16–24; TEMP 36.2–37.1; O2SAT 94–100
[2023-02-12] MEDS: ALBUTEROL SULFATE NEB 2.5 MG/3 ML INH INHALATION ×3 (02:42→12:53)
[2023-02-12] MEDS: IPRATROPIUM BR 0.02% INH SOLN 0.5 MG/2.5 ML VIAL INHALATION ×3 (02:43→12:53)
[2023-02-12 06:15] LABS: Basophils Percent Auto 0.3 % (0.2-1.2); Eosinophils Absolute Auto 0.1 K/mm3 (0-0.3); Hematocrit 23.3 % (37.0-47.0); Hemoglobin 7.3 g/dL (12.0-15.0); Immature Granulocyte Absolute 0.03 K/mm3 (0.00-0.031); Immature Granulocyte Percent A 0.5 % (0-0.5); Lymphocytes Percent Auto 9.8 % (18.3-44.2); Mean Corpuscular HGB Conc 31.3 g/dl (32-36); Mean Corpuscular Hemoglobin 30.2 pg (26-34); Mean Corpuscular Volume 96.3 fl (80-100); Mean Platelet Volume 9.3 fl (7.4-10.4); Monocytes Absolute Auto 0.8 K/mm3 (0.1-0.6); Monocytes Percent Auto 12.2 % (2.6-8.5); Neutrophils Absolute Auto 4.7 K/mm3 (1.3-6.7); Neutrophils Percent Auto 76.2 % (45.5-73.1); Platelet Count Result 150 k/mm3 (150-375); Red Blood Count 2.42 M/mm3 (4.2-5.4); Red Cell Distribution Width 14.6 % (11.5-14.5); White Blood Count 6.2 K/mm3 (4.5-10.0)
[2023-02-12 06:27] LABS: Alanine Aminotransferase 14 U/L (6-35); Albumin Level 3.1 g/dL (3.5-5.1); Alkaline Phosphatase 48 U/L (38-126); Anion Gap 4 mmol/L (8-16); Aspartate Amino Transferase 33 U/L (14-36); Bilirubin,Total 0.7 mg/dL (0.2-1.3); Blood Urea Nitrogen 48 mg/dL (7-17); Calcium 7.8 mg/dL (8.4-10.2); Carbon Dioxide 30 mmol/L (22-30); Chloride 98 mmol/L (98-107); Estimated CRCL calculation 31 ml/min; Estimated Glomerular Filt Rate 33; Glucose 98 mg/dL (65-110); Potassium 3.8 mmol/L (3.4-5.0); Sodium 132 mmol/L (137-145)
[2023-02-12] MEDS: CEFEPIME 1 GM/NS 50 ML 1 GM/50 ML BAG IVPB ×2 (07:58→20:22)
[2023-02-12] MEDS: BISACODYL 5 MG TABLET EC 10 MG PO (07:58)
[2023-02-12] MEDS: FUROSEMIDE 40 MG TABLET PO (07:59)
[2023-02-12] MEDS: SPIRONOLACTONE 25 MG TABLET PO (07:59)
[2023-02-12] MEDS: AMIODARONE HCL 100 MG TABLET PO (07:59)
[2023-02-12] MEDS: ASPIRIN 81 MG ENTERIC TABLET PO (07:59)
[2023-02-12] MEDS: APIXABAN 5 MG TABLET PO ×2 (07:59→20:22)
[2023-02-12] MEDS: CHOLECALCIFEROL 1,000 UNITS TABLET 1000 UNITS PO (07:59)
[2023-02-12] MEDS: SILVERGEL (ELTA) 45 ML 1 APPLIC TOPICAL (08:00)
[2023-02-12] MEDS: ACETAMINOPHEN 325 MG TABLET 650 MG PO (08:03)
--- NOTE | 2023-02-12 15:59 | PM.IMPN ---
Progress Note: A&P Assessment and Plan (1) Sepsis: Qualifiers: Sepsis acute organ dysfunction status: unspecified Sepsis type: sepsis due to unspecified organism Qualified Code(s): A41.9 - Sepsis, unspecified organism Code(s): A41.9 - Sepsis, unspecified organism Status: Acute Assessment and Plan: Patient meets sepsis criteria, started on broad spectrum IV antibiotics with vanc + zosyn 02/08 Consult surgery for debridement, consult wound care for local care 02/08/23: 2/2 blood cultures positive for pseudomonas, sens cefepime/levaquin not zosyn, wound culture positive for proteus, sens augmentin, resistant to fluoroquinolones Repeat blood cx 02/10 and 02/11 NGTD 02/12: cont cefepime, d/c on levaquin + augmentin soon to complete a 14 day course, end date 02/23 (2) Acute respiratory failure with hypoxia: Code(s): J96.01 - Acute respiratory failure with hypoxia Status: Acute Assessment and Plan: Acute respiratory failure with new oxygen requirement, pulm congestion on CXR, symptoms likely secondary to acutely decompensated CHF vs pna, started lasix 40 mg IV q 12hrs 02/08 02/12: wean O2 to keep sats greater than 92% (3) COPD exacerbation: Code(s): J44.1 - Chronic obstructive pulmonary disease with (acute) exacerbation Status: Deleted Assessment and Plan: Patient carries a diagnosis of COPD, not in acute exacerbation Continue PRN nebulization (4) Infected ulcer of skin: Qualifiers: Non-pressure ulcer stage: unspecified non-pressure ulcer stage Qualified Code(s): L98.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 - Non-pressure chronic ulcer of skin of other sites with unspecified severity; L08.9 - Local infection of the skin and subcutaneous tissue, unspecified Code(s): L98.499 - Non-pressure chronic ulcer of skin of other sites with unspecified severity; L08.9 - Local infection of the skin and subcutaneous tissue, unspecified Status: Acute Assessment and Plan: See above (5) DVT (deep venous thrombosis): Code(s): I82.409 - Acute embolism and thrombosis of unspecified deep veins of unspecified lower extremity Status: Acute Assessment and Plan: On chronic anticoagulation with eliquis (6) CHF exacerbation: Qualifiers: Heart failure type: unspecified Qualified Code(s): I50.9 - Heart failure, unspecified Code(s): I50.9 - Heart failure, unspecified Status: Acute Assessment and Plan: Continue lasix 40 mg IV 12hrs Follow up repeat EKG and troponin Continue amiodarone 100 mg PO daily Continue spironolactone 25 mg PO daily (7) Arthritis of elbow, right, degenerative: Qualifiers: Osteoarthritis type: primary Qualified Code(s): 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, right elbow Code(s): 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, right elbow Status: Acute Assessment and Plan: Elbow pain with abnormal x-ray concerning for possible fracture, appreciate Orthopedic consultation, recommendation is conservative management, no fracture suspected, likely due to severe arthritis Recommended ice, elevation and compression dressing, consider cortisone injection outpatient Plan PT/OT and dispo planning soon CODE STATUS: FULL CODE Antibiotic: cefepime Diet: regular GI prophylaxis: pepcid DVT prophylaxis: eliquis Subjective Date/time seen: 02/12/23 15:59 Interval history: 87-year-old female with history of heart failure, COPD, DVT is presenting with acute onset of shortness of breath and being treated for sepsis and heart failure exacerbation. No overnight events noted. No chest pain or shortness of breath. No nausea, vomiting or diarrhea. No fevers or chills. Feels stronger and almost ready to go home soon. Review of Systems Review of Systems: 12 point review of systems was assessed and was negative except as noted in the HPI Exam Narrative: General: No acute distr
[2023-02-13] VITALS (9 sets, daily range): BP systolic 116–138; BP diastolic 44–84; PULSE 65–87; RESP 16–28; TEMP 36.7–37.6; O2SAT 94–100; BMI 10.0
[2023-02-13] MEDS: ALBUTEROL SULFATE NEB 2.5 MG/3 ML INH INHALATION ×3 (02:24→20:23)
[2023-02-13] MEDS: IPRATROPIUM BR 0.02% INH SOLN 0.5 MG/2.5 ML VIAL INHALATION ×3 (02:24→20:23)
[2023-02-13] MEDS: ACETAMINOPHEN 325 MG TABLET 650 MG PO ×2 (06:28→13:37)
[2023-02-13 06:52] LABS: Basophils Percent Auto 0.3 % (0.2-1.2); Eosinophils Percent Auto 0.3 % (0-4.4); Hematocrit 25.3 % (37.0-47.0); Hemoglobin 7.8 g/dL (12.0-15.0); Immature Granulocyte Absolute 0.04 K/mm3 (0.00-0.031); Immature Granulocyte Percent A 0.6 % (0-0.5); Lymphocytes Absolute Auto 0.46 K/mm3 (0.9-3.2); Lymphocytes Percent Auto 6.4 % (18.3-44.2); Mean Corpuscular HGB Conc 30.8 g/dl (32-36); Mean Corpuscular Hemoglobin 30.1 pg (26-34); Mean Corpuscular Volume 97.7 fl (80-100); Mean Platelet Volume 9.7 fl (7.4-10.4); Monocytes Absolute Auto 0.8 K/mm3 (0.1-0.6); Monocytes Percent Auto 11.1 % (2.6-8.5); Neutrophils Absolute Auto 5.9 K/mm3 (1.3-6.7); Neutrophils Percent Auto 81.3 % (45.5-73.1); Platelet Count Result 170 k/mm3 (150-375); Red Blood Count 2.59 M/mm3 (4.2-5.4); Red Cell Distribution Width 14.6 % (11.5-14.5); White Blood Count 7.2 K/mm3 (4.5-10.0)
[2023-02-13 07:04] LABS: Alanine Aminotransferase 15 U/L (6-35); Albumin Level 3.1 g/dL (3.5-5.1); Alkaline Phosphatase 46 U/L (38-126); Anion Gap 5 mmol/L (8-16); Aspartate Amino Transferase 30 U/L (14-36); Bilirubin,Total 0.7 mg/dL (0.2-1.3); Blood Urea Nitrogen 40 mg/dL (7-17); Calcium 8.4 mg/dL (8.4-10.2); Carbon Dioxide 32 mmol/L (22-30); Chloride 100 mmol/L (98-107); Estimated CRCL calculation 33 ml/min; Estimated Glomerular Filt Rate 36; Glucose 84 mg/dL (65-110); Potassium 3.9 mmol/L (3.4-5.0); Sodium 137 mmol/L (137-145)
[2023-02-13] MEDS: CEFEPIME 1 GM/NS 50 ML 1 GM/50 ML BAG IVPB (09:27)
[2023-02-13] MEDS: APIXABAN 5 MG TABLET PO ×2 (09:28→20:42)
[2023-02-13] MEDS: FUROSEMIDE 40 MG TABLET PO (09:28)
[2023-02-13] MEDS: CHOLECALCIFEROL 1,000 UNITS TABLET 1000 UNITS PO (09:28)
[2023-02-13] MEDS: BISACODYL 5 MG TABLET EC 10 MG PO (09:29)
[2023-02-13] MEDS: AMIODARONE HCL 100 MG TABLET PO (09:29)
[2023-02-13] MEDS: ASPIRIN 81 MG ENTERIC TABLET PO (09:29)
[2023-02-13] MEDS: SPIRONOLACTONE 25 MG TABLET PO (09:30)
[2023-02-13] MEDS: SILVERGEL (ELTA) 45 ML 1 APPLIC TOPICAL (09:30)
--- NOTE | 2023-02-13 09:44 | PM.IMPN ---
Progress Note: A&P Assessment and Plan (1) Sepsis: Qualifiers: Sepsis acute organ dysfunction status: unspecified Sepsis type: sepsis due to unspecified organism Qualified Code(s): A41.9 - Sepsis, unspecified organism Code(s): A41.9 - Sepsis, unspecified organism Status: Acute Assessment and Plan: Patient meets sepsis criteria, started on broad spectrum IV antibiotics with vanc + zosyn 02/08 Consult surgery for debridement, consult wound care for local care 02/08/23: 2/2 blood cultures positive for pseudomonas, sens cefepime/levaquin not zosyn, wound culture positive for proteus, sens augmentin, resistant to fluoroquinolones Repeat blood cx 02/10 and 02/11 NGTD 02/12: cont cefepime, d/c on levaquin + augmentin soon to complete a 14 day course, end date 02/23 02/13: transition to oral abx (2) Acute respiratory failure with hypoxia: Code(s): J96.01 - Acute respiratory failure with hypoxia Status: Acute Assessment and Plan: Acute respiratory failure with new oxygen requirement, pulm congestion on CXR, symptoms likely secondary to acutely decompensated CHF vs pna, started lasix 40 mg IV q 12hrs 02/08 02/12: wean O2 to keep sats greater than 92% 02/13: down to 1L, home O2 eval for possible d/c on O2 (3) COPD exacerbation: Code(s): J44.1 - Chronic obstructive pulmonary disease with (acute) exacerbation Status: Deleted Assessment and Plan: Patient carries a diagnosis of COPD, not in acute exacerbation Continue PRN nebulization (4) Infected ulcer of skin: Qualifiers: Non-pressure ulcer stage: unspecified non-pressure ulcer stage Qualified Code(s): L98.499 - Non-pressure chronic ulcer of skin of other sites with unspecified severity; L08.9 - Local infection of the skin and subcutaneous tissue, unspecified Code(s): L98.499 - Non-pressure chronic ulcer of skin of other sites with unspecified severity; L08.9 - Local infection of the skin and subcutaneous tissue, unspecified Status: Acute Assessment and Plan: See above (5) DVT (deep venous thrombosis): Code(s): I82.409 - Acute embolism and thrombosis of unspecified deep veins of unspecified lower extremity Status: Acute Assessment and Plan: On chronic anticoagulation with eliquis (6) CHF exacerbation: Qualifiers: Heart failure type: unspecified Qualified Code(s): I50.9 - Heart failure, unspecified Code(s): I50.9 - Heart failure, unspecified Status: Acute Assessment and Plan: Lasix transitioned to oral 6/3 Follow up repeat EKG and troponin Continue amiodarone 100 mg PO daily Continue spironolactone 25 mg PO daily (7) Arthritis of elbow, right, degenerative: Qualifiers: Osteoarthritis type: primary Qualified Code(s): 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, right elbow Code(s): 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, right elbow Status: Acute Assessment and Plan: Elbow pain with abnormal x-ray concerning for possible fracture, appreciate Orthopedic consultation, recommendation is conservative management, no fracture suspected, likely due to severe arthritis Recommended ice, elevation and compression dressing, consider cortisone injection outpatient Plan PT/OT and dispo planning soon CODE STATUS: FULL CODE Antibiotic: augmentin + levaquin Diet: regular GI prophylaxis: pepcid DVT prophylaxis: eliquis Subjective Date/time seen: 02/13/23 09:44 Interval history: 87-year-old female with history of heart failure, COPD, DVT is presenting with acute onset of shortness of breath and being treated for sepsis and heart failure exacerbation. No overnight events noted. No chest pain or shortness of breath. No nausea, vomiting or diarrhea. No fevers or chills. Weaned to 1L O2. Review of Systems Review of Systems: 12 point review of systems was assessed and was negative except as note
--- NOTE | 2023-02-13 10:09 | PCOTNOTE ---
Called and spoke with intermediate who reports patient is dependent with all ADLs prior to hospitilization. Spoke with hospitalist and order MD Dr. Bynum who is agreeable to canceling OT orders. flight coordinator Jenna reports does not need a OT evaluation to return to intermediate. Plan to cancel OT orders at this time.
--- NOTE | 2023-02-13 12:34 | PCPTNOTE ---
On 02/13/23, the student, [Lynn Romano], provided care and completed [facility] documentation on this patient. I have reviewed the student's documentation and agree with the findings.
[2023-02-13] MEDS: traMADol HCL (*CRX) 25 MG TABLET PO ×3 (13:36→22:00)
[2023-02-13] MEDS: levoFLOXacin 750 MG TABLET PO (13:38)
[2023-02-13] MEDS: AMOXICILLIN/CLAVULANATE K 875-125 MG TAB 1 TABLET PO (20:42)
[2023-02-14] VITALS (13 sets, daily range): BP systolic 109–128; BP diastolic 37–42; PULSE 63–77; RESP 18–26; TEMP 36.2–37.1; O2SAT 92–100
[2023-02-14] MEDS: ACETAMINOPHEN 325 MG TABLET 650 MG PO (00:39)
[2023-02-14] MEDS: ALBUTEROL SULFATE NEB 2.5 MG/3 ML INH INHALATION ×4 (01:13→21:04)
[2023-02-14] MEDS: IPRATROPIUM BR 0.02% INH SOLN 0.5 MG/2.5 ML VIAL INHALATION ×4 (01:13→21:04)
[2023-02-14] MEDS: HYDROmorphone HCL INJ (*CRX) 1 MG/ML SYR IV PUSH ×3 (02:22→20:09)
[2023-02-14 07:28] LABS: Basophils Percent Auto 0.2 % (0.2-1.2); Eosinophils Percent Auto 0.1 % (0-4.4); Hematocrit 25.2 % (37.0-47.0); Hemoglobin 7.7 g/dL (12.0-15.0); Immature Granulocyte Absolute 0.05 K/mm3 (0.00-0.031); Immature Granulocyte Percent A 0.6 % (0-0.5); Lymphocytes Absolute Auto 0.54 K/mm3 (0.9-3.2); Lymphocytes Percent Auto 6.7 % (18.3-44.2); Mean Corpuscular HGB Conc 30.6 g/dl (32-36); Mean Corpuscular Hemoglobin 30.2 pg (26-34); Mean Corpuscular Volume 98.8 fl (80-100); Mean Platelet Volume 9.5 fl (7.4-10.4); Monocytes Absolute Auto 1.1 K/mm3 (0.1-0.6); Monocytes Percent Auto 13.5 % (2.6-8.5); Neutrophils Absolute Auto 6.4 K/mm3 (1.3-6.7); Neutrophils Percent Auto 78.9 % (45.5-73.1); Platelet Count Result 168 k/mm3 (150-375); Red Blood Count 2.55 M/mm3 (4.2-5.4); Red Cell Distribution Width 14.6 % (11.5-14.5); White Blood Count 8.1 K/mm3 (4.5-10.0)
[2023-02-14 07:46] LABS: Alanine Aminotransferase 15 U/L (6-35); Alkaline Phosphatase 51 U/L (38-126); Anion Gap 4 mmol/L (8-16); Aspartate Amino Transferase 23 U/L (14-36); Bilirubin,Total 0.6 mg/dL (0.2-1.3); Blood Urea Nitrogen 39 mg/dL (7-17); Calcium 8.5 mg/dL (8.4-10.2); Carbon Dioxide 34 mmol/L (22-30); Chloride 100 mmol/L (98-107); Estimated CRCL calculation 28 ml/min; Estimated Glomerular Filt Rate 28; Glucose 119 mg/dL (65-110); Potassium 4.2 mmol/L (3.4-5.0); Sodium 138 mmol/L (137-145)
[2023-02-14] MEDS: AMOXICILLIN/CLAVULANATE K 875-125 MG TAB 1 TABLET PO ×2 (09:13→20:09)
[2023-02-14] MEDS: CHOLECALCIFEROL 1,000 UNITS TABLET 1000 UNITS PO (09:13)
[2023-02-14] MEDS: AMIODARONE HCL 100 MG TABLET PO (09:13)
[2023-02-14] MEDS: APIXABAN 5 MG TABLET PO ×2 (09:13→20:09)
[2023-02-14] MEDS: FUROSEMIDE 40 MG TABLET PO (09:13)
[2023-02-14] MEDS: ASPIRIN 81 MG ENTERIC TABLET PO (09:14)
[2023-02-14] MEDS: SPIRONOLACTONE 25 MG TABLET PO (09:14)
[2023-02-14] MEDS: SILVERGEL (ELTA) 45 ML 1 APPLIC TOPICAL (09:14)
--- NOTE | 2023-02-14 11:38 | PM.IMPN ---
Progress Note: A&P Assessment and Plan (1) Sepsis: Qualifiers: Sepsis acute organ dysfunction status: unspecified Sepsis type: sepsis due to unspecified organism Qualified Code(s): A41.9 - Sepsis, unspecified organism Code(s): A41.9 - Sepsis, unspecified organism Status: Acute Assessment and Plan: Patient meets sepsis criteria, started on broad spectrum IV antibiotics with vanc + zosyn 02/08 Consult surgery for debridement, consult wound care for local care 02/08/23: 2/2 blood cultures positive for pseudomonas, sens cefepime/levaquin not zosyn, wound culture positive for proteus, sens augmentin, resistant to fluoroquinolones Repeat blood cx 02/10 and 02/11 NGTD 02/12: cont cefepime, d/c on levaquin + augmentin soon to complete a 14 day course, end date 02/23 02/13: transition to oral abx 02/14: infection improving, cont abx as above (2) Acute respiratory failure with hypoxia: Code(s): J96.01 - Acute respiratory failure with hypoxia Status: Acute Assessment and Plan: Acute respiratory failure with new oxygen requirement, pulm congestion on CXR, symptoms likely secondary to acutely decompensated CHF vs pna, started lasix 40 mg IV q 12hrs 02/08 02/12: wean O2 to keep sats greater than 92% 02/13: down to 1L, home O2 eval for possible d/c on O2 02/14: 92% 2L nc, check CTA for PE--canceled due to low GFR, would check V/Q scan but patient is on eliquis already and these are highly unreliable, hold lasix, check CXR, unsure of etiology, could be atelectasis from anxiety and shallow breathing 2/2 pain (3) COPD exacerbation: Code(s): J44.1 - Chronic obstructive pulmonary disease with (acute) exacerbation Status: Deleted Assessment and Plan: Patient carries a diagnosis of COPD, not in acute exacerbation Continue PRN nebulization (4) Infected ulcer of skin: Qualifiers: Non-pressure ulcer stage: unspecified non-pressure ulcer stage Qualified Code(s): L98.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 - Non-pressure chronic ulcer of skin of other sites with unspecified severity; L08.9 - Local infection of the skin and subcutaneous tissue, unspecified Code(s): L98.499 - Non-pressure chronic ulcer of skin of other sites with unspecified severity; L08.9 - Local infection of the skin and subcutaneous tissue, unspecified Status: Acute Assessment and Plan: See above (5) DVT (deep venous thrombosis): Code(s): I82.409 - Acute embolism and thrombosis of unspecified deep veins of unspecified lower extremity Status: Acute Assessment and Plan: On chronic anticoagulation with eliquis (6) CHF exacerbation: Qualifiers: Heart failure type: unspecified Qualified Code(s): I50.9 - Heart failure, unspecified Code(s): I50.9 - Heart failure, unspecified Status: Acute Assessment and Plan: Lasix transitioned to oral 02/11, held 02/15 due to bump in creatinine Follow up repeat EKG and troponin Continue amiodarone 100 mg PO daily Continue spironolactone 25 mg PO daily (7) Arthritis of elbow, right, degenerative: Qualifiers: Osteoarthritis type: primary Qualified Code(s): 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 Plan CODE STATUS: FULL CODE Antibiotic: augmentin + levaquin Diet: regular GI prophylaxis: pepcid DVT prophylaxis: eliquis Subjective Date/time seen: 02/14/23 11:38 Interval history: 87-year-old female with history
--- NOTE | 2023-02-14 12:58 | PM.PNORT ---
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 Still with out known injury or trauma. Severe crepitance of the shoulder on exam. Skin intact. Neurovascular intact. New radiographs of the elbow yesterday without any acute changes. Will obtain new x-rays of the shoulder. May consider cortisone injection depending on x-ray findings. Subjective Subjective Date/Time Seen: 02/14/23 12:58 Principal diagnosis: right elbow arthritis Interval history: increasing pain right elbow and arm since yesterday. Crepitance with motion. No known injury. Exam Const: General: healthy appearing; No in distress or confusion Orientation/consciousness: oriented to person, oriented to place, oriented to time and No confusion HENMT: Head: normal to inspection, normocephalic and atraumatic Eyes: Conjunctivae: conjunctivae normal Sclera: sclerae normal Neck: Neck: supple and nontender Resp: Effort & Inspection: normal respiratory effort and no audible wheezes Cardio: Rate: regular rate Rhythm: regular rhythm Skin: General skin exam: no rashes or lesions noted Neuro: General: oriented to person, oriented to place, oriented to time and No confusion Extrem: Right upper extremity: shoulder/upper arm axillary nerve sensory function normal, normal ROM (FF 130, Abd 120, ER 70, IR T7) and other (RC 5/5, Bicep 5/5, Deltoid 5/5, ER 5/5); no tenderness and no swelling, elbow/forearm normal to inspection, tenderness of the lateral epicondyle with resisted supination and other, swelling of the lateral epicondyle, normal ROM ( Elbow flexion-extension 0 to 140?, pronation 80, supination 80) and other (bicep 5/5, tricep 5/5, pronation 5/5, supination 5/5), wrist normal ROM and radial pulse present; no tenderness and Extremity exam: right hand neuromotor exam abnormal fingers 2-5 ABduction abnormal weak, neurosensory exam normal radial nerve sensory function normal and median nerve sensory function normal, neurosensory exam abnormal ulnar nerve sensory function normal decreased two-point discrimination and decreased light touch sensation and vascular exam radial pulse present and normal capillary refill; no tenderness, no swelling and no crepitus Left upper extremity: normal to inspection, shoulder/upper arm inspection abnormal, axillary nerve sensory function normal, normal ROM and other (RC 5/5, Bicep 5/5, Deltoid 5/5, ER 5/5); no tenderness and no swelling, elbow/forearm normal ROM (Active extension 0, flexion 140, pro 80, [id number]) and other (bicep 5/5, tricep 5/5, pronation 5/5, supination 5/5); no tenderness, no swelling, no ecchymosis and no crepitus, wrist normal ROM, radial pulse present and other (wrist extension 5/5, wrist flexion 5/5); no tenderness and hand neuromotor exam normal Details: wrist extension normal and thumb IP flexion normal, neurosensory exam normal Details: radial nerve sensory function normal, ulnar nerve sensory function normal and median nerve sensory function normal, tendon exam normal Location: of all digits and vascular exam radial pulse present and normal capillary refill; no tenderness Right lower extremity: normal to inspection Left lower extremity: normal to inspection Psych: Affect: normal affect Objective Eleazar
[2023-02-14 14:03] LABS: Base Excess ABG 1.1 mEq/l (+/-2.0); Fractional Inspired Oxygen 28 %; HCO3 ABG 25.7 mEq/l (22.0-26.0); Oxygen Content ABG 11.3 %vol (16.0-22.0); Oxygen Saturation ABG 91.6 % (95.0-100.0); Oxyhemoglobin 89.6 % THb (90.0-100.0); PCO2 ABG 40.8 mmHg (35.0-45.0); PO2 ABG 60.5 mmHg (80.0-100.0); PO2 FiO2 Ratio Arterial Blood 2.16 %; Total Hemoglobin 8.9 g/dL (12.0-18.0); pH ABG 7.417 (7.350-7.450)
[2023-02-14 14:04] LABS: Device NASAL CANNULA; Site Drawn LEFT BRACHIAL
[2023-02-14] MEDS: LORazepam INJ (*CRX) 2 MG/ML VIAL 1 MG IV PUSH (14:11)
--- NOTE | 2023-02-14 15:31 | P.OPB_ITS ---
Procedure Note - Brief Procedure Note - Brief Date of procedure: 02/14/23 right elbow pain Procedure performed: Right Shoulder Injection Surgeon: MICHELLE Pryor Sandwich Machine Operator: N/A Anesthesia: local Description of procedure: Right Shoulder Joint Injection, posterior approach Estimated blood loss (mL): 0 Tourniquet time (min): 0 IV fluids (mL): 0 Urine output (mL): 0 Drains: No Packing: No Pathology: None sent Complications: No immediate complications Condition: Stable Disposition: Floor Joint Aspiration/Injection Pre-Procedure Pre-procedure care: Consent was obtained (from POA/Family ), Procedures/risks were explained, Questions were answered, Correct patient identified and Correct side and site confirmed Position Position: Sitting Site Prepped Technique: alcohol Anesthetic: lidocaine 1% plain 22 gauge Injection Details right arthrocentesis major joint Shoulder subacromial space Manual palpation Sterile Dressing Pressure Improvement by site: Mild Post Procedure Patient tolerated the procedure well?: Tolerated procedure well
[2023-02-14] MEDS: SODIUM CHLORIDE 0.9% IV 1,000 ML 500 ML IV CONT (18:40)
[2023-02-15] VITALS (16 sets, daily range): BP systolic 108–125; BP diastolic 43–56; PULSE 57–83; RESP 16–20; TEMP 36.1–36.6; O2SAT 93–96; BMI 10.0
[2023-02-15] MEDS: ALBUTEROL SULFATE NEB 2.5 MG/3 ML INH INHALATION ×4 (01:43→20:01)
[2023-02-15] MEDS: IPRATROPIUM BR 0.02% INH SOLN 0.5 MG/2.5 ML VIAL INHALATION ×4 (01:43→20:01)
[2023-02-15 05:50] LABS: Basophils Percent Auto 0.1 % (0.2-1.2); Eosinophils Percent Auto 0.1 % (0-4.4); Hematocrit 24.2 % (37.0-47.0); Hemoglobin 7.5 g/dL (12.0-15.0); Immature Granulocyte Absolute 0.04 K/mm3 (0.00-0.031); Immature Granulocyte Percent A 0.6 % (0-0.5); Lymphocytes Absolute Auto 0.47 K/mm3 (0.9-3.2); Lymphocytes Percent Auto 6.8 % (18.3-44.2); Mean Corpuscular Volume 96.8 fl (80-100); Mean Platelet Volume 9.1 fl (7.4-10.4); Monocytes Absolute Auto 0.8 K/mm3 (0.1-0.6); Monocytes Percent Auto 11.1 % (2.6-8.5); Neutrophils Absolute Auto 5.7 K/mm3 (1.3-6.7); Neutrophils Percent Auto 81.3 % (45.5-73.1); Platelet Count Result 168 k/mm3 (150-375); Red Cell Distribution Width 14.7 % (11.5-14.5)
[2023-02-15 06:02] LABS: Alanine Aminotransferase 15 U/L (6-35); Albumin Level 3.2 g/dL (3.5-5.1); Alkaline Phosphatase 54 U/L (38-126); Anion Gap 5 mmol/L (8-16); Aspartate Amino Transferase 22 U/L (14-36); Bilirubin,Total 0.5 mg/dL (0.2-1.3); Blood Urea Nitrogen 45 mg/dL (7-17); Calcium 8.1 mg/dL (8.4-10.2); Carbon Dioxide 31 mmol/L (22-30); Chloride 101 mmol/L (98-107); Estimated CRCL calculation 25 ml/min; Estimated Glomerular Filt Rate 25; Glucose 121 mg/dL (65-110); Potassium 4.1 mmol/L (3.4-5.0); Sodium 137 mmol/L (137-145)
[2023-02-15] MEDS: HYDROmorphone HCL INJ (*CRX) 1 MG/ML SYR IV PUSH (08:46)
[2023-02-15] MEDS: BISACODYL 5 MG TABLET EC 10 MG PO (08:47)
[2023-02-15] MEDS: SPIRONOLACTONE 25 MG TABLET PO (08:48)
[2023-02-15] MEDS: CHOLECALCIFEROL 1,000 UNITS TABLET 1000 UNITS PO (08:48)
[2023-02-15] MEDS: APIXABAN 5 MG TABLET PO ×2 (08:48→20:48)
[2023-02-15] MEDS: levoFLOXacin 750 MG TABLET PO (08:48)
[2023-02-15] MEDS: ASPIRIN 81 MG ENTERIC TABLET PO (08:48)
[2023-02-15] MEDS: AMIODARONE HCL 100 MG TABLET PO (08:48)
[2023-02-15] MEDS: AMOXICILLIN/CLAVULANATE K 875-125 MG TAB 1 TABLET PO ×2 (08:49→20:48)
[2023-02-15] MEDS: SILVERGEL (ELTA) 45 ML 1 APPLIC TOPICAL (08:50)
[2023-02-15] MEDS: SILVER NITRATE (*SP) STICK 10 EACH TOPICAL (10:34)
--- NOTE | 2023-02-15 11:15 | PM.PNGS ---
Progress Note: A&P Assessment and Plan (1) Wound of left leg: Qualifiers: Encounter type: subsequent encounter Qualified Code(s): S81.802D - Unspecified open wound, left lower leg, subsequent encounter Code(s): S81.802A - Unspecified open wound, left lower leg, initial encounter Status: Chronic Assessment and Plan: Clean and slowly healing. Will add Adaptic over the silver gel to avoid pulling off eschar with each dressing change and the subsequent bleeding. (2) Anticoagulant long-term use: Code(s): Z79.01 - long-term (current) use of anticoagulants Status: Acute Assessment and Plan: Add Adaptic to avoid wound bleeding. Subjective Subjective Date/Time Seen: 02/15/23 11:15 Patient reports: no new complaints Review of Systems Review of Systems: All systems reviewed & are unremarkable except as noted in HPI and below (HPI and those items noted below) Constitutional: Constitutional: Denies chills and Denies fever(s) Cardiovascular: Cardiovascular: Denies chest pain, Denies diaphoresis, Denies dyspnea and Denies paroxysmal nocturnal dyspnea Respiratory: Respiratory: Denies chest congestion, Denies cough and Denies dyspnea Integumentary/Breasts: Skin/Breast: Denies lesions and Denies rash Exam Const: General: comfortable, no acute distress, alert, awake and obese Extrem: Left lower extremity: ankle (No residual suture seen, eschar being removed with gauze.) Details: tenderness, pitting edema and other (Bleeding from wound bed after removal gauze, stopped with silver nitrate cautery); no warmth and no crepitus Objective Data Vital Signs Vital Signs: Vital Signs - 24 hr 02/14/23 13:10 02/14/23 13:20 02/14/23 14:00 Temperature 36.2 C L Pulse Rate 70 71 70 Respiratory Rate 18 18 26 H Blood Pressure 109/42 L Pulse Oximetry 97 Oxygen Delivery Oxygen Flow Rate 02/14/23 21:07 02/14/23 20:55 02/14/23 21:16 Temperature Pulse Rate 73 77 Respiratory Rate 18 18 Blood Pressure Pulse Oximetry 95 Oxygen Delivery Nasal Cannula Oxygen Flow Rate 3 02/14/23 21:47 02/15/23 01:40 02/15/23 01:55 Temperature 37.1 C Pulse Rate 63 75 78 Respiratory Rate 20 18 18 Blood Pressure 128/39 L Pulse Oximetry 100 Oxygen Delivery Oxygen Flow Rate 02/15/23 01:56 02/15/23 06:00 02/15/23 07:55 Temperature 36.4 C L Pulse Rate 72 77 Respiratory Rate 20 Blood Pressure 115/56 L Pulse Oximetry 94 96 94 Oxygen Delivery Nasal Cannula Nasal Cannula Oxygen Flow Rate 2 2 02/15/23 07:55 02/15/23 08:04 02/15/23 08:46 Temperature Pulse Rate 77 71 79 Respiratory Rate 18 18 Blood Pressure 122/43 L Pulse Oximetry Oxygen Delivery Oxygen Flow Rate 02/15/23 08:48 02/15/23 08:00 Temperature Pulse Rate 79 Respiratory Rate Blood Pressure Pulse Oximetry 93 Oxygen Delivery Nasal Cannula Oxygen Flow Rate 2 Intake/Output Intake/Output: Intake & Output 02/12/23 02/13/23 02/14/23 02/15/23 23:59 23:59 23:59 23:59 Intake Total 595 002 7020 780 Output Total 150 250 Balance 953 252 2602 530 Meds/Results Medications: Active Medications Generic Name Dose Route Start Last Admin Trade Name Freq PRN Reason Stop Dose Admin Acetaminophen 650 mg 02/08/23 20:25 02/14/23 00:39 Acetaminophen 325 Mg Tablet PO 650 mg Q4H PRN Administration Mild Pain (1-3) or Fever Albuterol 2.5 mg 02/09/23 02:00 02/15/23 07:53 Albuterol Sulfate Neb 2.5 Mg/3 Ml Inh INHALATION 2.5 mg Q6HRT WOLFGANG Administration Amiodarone HCl 100 mg 02/09/23 08:00 02/15/23 08:48 Amiodarone Hcl 100 Mg Tablet PO 100 mg DAILY@0800 WOLFGANG Administration Amoxicillin/Clavulanate Potassium 1 tablet 02/13/23 21:00 02/15/23 08:49 Amoxicillin/Clavulanate K 875-125 Mg Tab PO 02/23/23 22:00 1 tablet Q12HR WOLFGANG Administration Apixaban 5 mg 02/09/23 09:00 02/15/23 08:48 Apixaban 5 Mg Tablet PO 5
--- NOTE | 2023-02-15 13:47 | PM.IMPN ---
Progress Note: A&P Assessment and Plan (1) Sepsis: Qualifiers: Sepsis acute organ dysfunction status: unspecified Sepsis type: sepsis due to unspecified organism Qualified Code(s): A41.9 - Sepsis, unspecified organism Code(s): A41.9 - Sepsis, unspecified organism Status: Acute Assessment and Plan: Patient meets sepsis criteria with fever, elevated WBC, lactic acid and CRP. She was started on broad spectrum IV antibiotics with vanc + zosyn 02/08 Surgery consulted for debridement and wound RN 02/08/23: 2/2 blood cultures positive for pseudomonas, sens cefepime/levaquin not zosyn, wound culture positive for proteus, sens augmentin, resistant to fluoroquinolones Repeat blood cx 02/10 and 02/11 NGTD 02/12: cont cefepime, d/c on levaquin + augmentin soon to complete a 14 day course, end date 02/23 02/13: transition to oral abx 02/14: infection improving, cont abx as above (2) Acute respiratory failure with hypoxia: Code(s): J96.01 - Acute respiratory failure with hypoxia Status: Acute Assessment and Plan: Acute respiratory failure with new oxygen requirement, pulm congestion on CXR, symptoms likely secondary to acutely decompensated CHF vs pna, started lasix 40 mg IV q 12hrs 02/08 02/12: wean O2 to keep sats greater than 92% 02/13: down to 1L, home O2 eval for possible d/c on O2 02/14: 92% 2L nc, check CTA for PE--canceled due to low GFR, would check V/Q scan but patient is on eliquis already and these are highly unreliable. Lasix on hold now. CT chest 02/14 showing cardiomegaly and dependent atelectasis. Encourage IS use. Increase activity. (3) COPD exacerbation: Code(s): J44.1 - Chronic obstructive pulmonary disease with (acute) exacerbation Status: Deleted Assessment and Plan: Patient has COPD, not in acute exacerbation Continue PRN nebulization (4) Infected ulcer of skin: Qualifiers: Non-pressure ulcer stage: unspecified non-pressure ulcer stage Qualified Code(s): L98.499 - Non-pressure chronic ulcer of skin of other sites with unspecified severity; L08.9 - Local infection of the skin and subcutaneous tissue, unspecified Code(s): L98.499 - Non-pressure chronic ulcer of skin of other sites with unspecified severity; L08.9 - Local infection of the skin and subcutaneous tissue, unspecified Status: Acute Assessment and Plan: Patient with left lower extremity wound that is slowly healing. Appreciate GenSurg input. Continue current wound care. Add Eucerin to intact skin. Abx as above (5) DVT (deep venous thrombosis): Code(s): I82.409 - Acute embolism and thrombosis of unspecified deep veins of unspecified lower extremity Status: Acute Assessment and Plan: Patient with hx of DVT in Oct 2022. On chronic anticoagulation with eliquis. (6) CHF exacerbation: Qualifiers: Heart failure type: unspecified Qualified Code(s): I50.9 - Heart failure, unspecified Code(s): I50.9 - Heart failure, unspecified Status: Acute Assessment and Plan: Patient with SOB. CXR on admission showing pulmonary vascular congestion. BNP 2470. She was started on Lasix IV. Fluid balance not accurate. Lasix transitioned to oral 02/11 but held 02/15 due to bump in creatinine but unclear on baseline renal function. Continue spironolactone 25 mg PO daily. 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 Ortho consulted and appreciate their input. Recommendation is for conservative management since no fracture suspected and more likely due to severe arthritis Recommended ice, elevation and compression dressing. Patient had a right arthrocentesis of right
[2023-02-15] MEDS: EUCERIN CREAM 120 GM JAR 1 APPLIC TOPICAL (14:47)
[2023-02-15] MEDS: traMADol HCL (*CRX) 25 MG TABLET PO (14:49)
--- NOTE | 2023-02-15 15:10 | PM.PNORT ---
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 Patient subjective complaints a little bit out of proportion to her objective findings. Continue with conservative care. Mobilize and activity as tolerated. Okay for discharge when medically stable. (2) Closed fracture of right proximal humerus: Qualifiers: Encounter type: initial encounter Fracture morphology: unspecified fracture morphology Qualified Code(s): S42.201A - Unspecified fracture of upper end of right humerus, initial encounter for closed fracture Code(s): S42.201A - Unspecified fracture of upper end of right humerus, initial encounter for closed fracture Status: Acute Assessment and Plan: Radiographs show no acute changes or fracture. (3) Degenerative arthritis of right shoulder region: Qualifiers: Osteoarthritis type: primary Qualified Code(s): M19.011 - Primary osteoarthritis, right shoulder Code(s): M19.011 - Primary osteoarthritis, right shoulder Status: Acute Assessment and Plan: Cortisone injection yesterday with significant relief. Improvement noted. Patient able to feed herself with her right hand. Continue with conservative care. Subjective Subjective Date/Time Seen: 02/15/23 15:10 Principal diagnosis: right elbow arthritis Interval history: right shoulder pain improved after injection yesterday. Still with some pain with motion. Nursing staff witnessed patient feeding herself with the right arm. Exam Const: General: healthy appearing; No in distress or confusion Orientation/consciousness: oriented to person, oriented to place, oriented to time and No confusion HENMT: Head: normal to inspection, normocephalic and atraumatic Eyes: Conjunctivae: conjunctivae normal Sclera: sclerae normal Neck: Neck: supple and nontender Resp: Effort & Inspection: normal respiratory effort and no audible wheezes Cardio: Rate: regular rate Rhythm: regular rhythm Skin: General skin exam: no rashes or lesions noted Neuro: General: oriented to person, oriented to place, oriented to time and No confusion Cranial nerves: Yes Normal hearing present Extrem: Right upper extremity: shoulder/upper arm axillary nerve sensory function normal, normal ROM (FF 130, Abd 120, ER 70, IR T7) and other (RC 5/5, Bicep 5/5, Deltoid 5/5, ER 5/5); no tenderness and no swelling, elbow/forearm normal to inspection, tenderness of the lateral epicondyle with resisted supination and other, swelling of the lateral epicondyle, normal ROM ( Elbow flexion-extension 0 to 140?, pronation 80, supination 80) and other (bicep 5/5, tricep 5/5, pronation 5/5, supination 5/5), wrist normal ROM and radial pulse present; no tenderness and Extremity exam: right hand neuromotor exam abnormal fingers 2-5 ABduction abnormal weak, neurosensory exam normal radial nerve sensory function normal and median nerve sensory function normal, neurosensory exam abnormal ulnar nerve sensory function normal decreased two-point discrimination and decreased light touch sensation and vascular exam radial pulse present and normal capillary refill; no tenderness, no swelling and no crepitus Left upper extremity: normal to inspection, shoulder/upper arm inspection abnormal, axillary nerve sensory function normal, normal ROM and other (RC 5/5, Bicep 5/5, Deltoid 5/5, ER 5/5); no tenderness and no swelling, elbow/forearm normal ROM (Active extension 0, flexion 140, pro 80, [id number]) and other (bicep 5/5, tricep 5/5, pronation 5/5, supination 5/5); no tenderness, no swelling, no ecchymosis and no crepitus, wrist normal ROM, radial pulse present an
[2023-02-16] VITALS (13 sets, daily range): BP systolic 106–113; BP diastolic 43–64; PULSE 71–91; RESP 18–20; TEMP 36.1–36.3; O2SAT 91–95; BMI 41.1
--- NOTE | 2023-02-16 | ECHO_ITS ---
Patient Info Name: Darby Mcbride Age: 87 years : 1935 Gender: Female Ht: 66 in Wt: 254 lbs BSA: 2.37 m2 HR: 71 bpm BP: 113 / 44 mmHg Heart Rhythm: Sinus Rhythm Technical Quality: Fair Exam Date: 02/16/2023 4:07 PM Exam Location: [facility] Pul[facility] Patient Status: Inpatient Admit Date: 02/10/2023 Staff Ordering Physician: Terrell Couch MD Attending Provider: Bhavani Allen MD Exam Type: CA echo doppler color flow Study Info Indications - pul edema Complete two-dimensional, color flow and Doppler transthoracic echocardiogram is performed. Summary 1. Complete two-dimensional, color flow and Doppler transthoracic echocardiogram is performed. 2. Left ventricular systolic function is normal, estimated at 50-55%. 3. Left ventricular septal wall motion is abnormal with septal motion related to bundle branch block. 4. Left atrial chamber dimension is mildly enlarged. 5. There is mild tricuspid valve regurgitation. Left Ventricle Left ventricular chamber dimension is normal. Left ventricular systolic function is normal, estimated at 50-55%. Left ventricular septal wall motion is abnormal with septal motion related to bundle branch block. The left ventricular diastolic function is grade I diastolic dysfunction. Right Ventricle Right ventricular chamber dimension is normal. Left Atria Left atrial chamber dimension is mildly enlarged. Right Atria Right atrial chamber dimension is normal. Aortic Valve The aortic valve is trileaflet. There is mild aortic valve sclerosis. Pulmonic Valve The pulmonic valve is normal. Mitral Valve The mitral valve has normal leaflets. Tricuspid Valve The tricuspid valve leaflets are normal. There is mild tricuspid valve regurgitation. Pericardium/Pleural The pericardium appears normal. Aorta The aortic root size at the sinus of Valsalva is normal. Left Ventricular Outflow Tract Name Value Normal LVOT 2D LVOT Diameter 2.0 cm LVOT Doppler LVOT Peak Gradient 9 mmHg LVOT Mean Gradient 4 mmHg LVOT VTI 33 cm LVOT VTI/AV VTI Ratio 0.8 LVOT Stroke Volume 103 ml LVOT CO 7.6 l/min LVOT CI 3.2 l/min/m2 Pulmonic Valve Name Value Normal RVOT Doppler RVOT Peak Gradient 2 mmHg PV Doppler PV Peak Gradient 6 mmHg Mitral Valve Name Value Normal MV Doppler MV Decel Banks 370 cm/s2 MV PHT
[2023-02-16] MEDS: traMADol HCL (*CRX) 25 MG TABLET PO ×2 (00:11→09:25)
[2023-02-16] MEDS: HYDROmorphone HCL INJ (*CRX) 1 MG/ML SYR IV PUSH (01:25)
[2023-02-16] MEDS: ALBUTEROL SULFATE NEB 2.5 MG/3 ML INH INHALATION ×4 (02:30→19:50)
[2023-02-16] MEDS: IPRATROPIUM BR 0.02% INH SOLN 0.5 MG/2.5 ML VIAL INHALATION ×4 (02:30→19:50)
[2023-02-16 05:49] LABS: Basophils Percent Auto 0.4 % (0.2-1.2); Eosinophils Percent Auto 0.5 % (0-4.4); Hematocrit 24.3 % (37.0-47.0); Hemoglobin 7.3 g/dL (12.0-15.0); Immature Granulocyte Absolute 0.05 K/mm3 (0.00-0.031); Immature Granulocyte Percent A 0.9 % (0-0.5); Lymphocytes Absolute Auto 0.57 K/mm3 (0.9-3.2); Lymphocytes Percent Auto 10.4 % (18.3-44.2); Mean Corpuscular Hemoglobin 29.2 pg (26-34); Mean Corpuscular Volume 97.2 fl (80-100); Monocytes Absolute Auto 0.6 K/mm3 (0.1-0.6); Monocytes Percent Auto 10.5 % (2.6-8.5); Neutrophils Absolute Auto 4.3 K/mm3 (1.3-6.7); Neutrophils Percent Auto 77.3 % (45.5-73.1); Platelet Count Result 193 k/mm3 (150-375); Red Cell Distribution Width 14.8 % (11.5-14.5); White Blood Count 5.5 K/mm3 (4.5-10.0)
[2023-02-16 06:02] LABS: Alanine Aminotransferase 19 U/L (6-35); Albumin Level 3.3 g/dL (3.5-5.1); Alkaline Phosphatase 54 U/L (38-126); Anion Gap 7 mmol/L (8-16); Aspartate Amino Transferase 27 U/L (14-36); Bilirubin,Total 0.6 mg/dL (0.2-1.3); Blood Urea Nitrogen 51 mg/dL (7-17); Calcium 8.3 mg/dL (8.4-10.2); Carbon Dioxide 29 mmol/L (22-30); Chloride 98 mmol/L (98-107); Estimated CRCL calculation 23 ml/min; Estimated Glomerular Filt Rate 22; Glucose 113 mg/dL (65-110); Potassium 4.4 mmol/L (3.4-5.0); Sodium 134 mmol/L (137-145)
[2023-02-16 06:13] LABS: Iron 26 ug/dL (37-170)
[2023-02-16 06:23] LABS: Percent Iron Saturation 12 % (20-50)
[2023-02-16 06:44] LABS: Thyroid Stimulating Hormone Reflex 0.754 uIU/mL (0.465-4.68)
[2023-02-16] MEDS: CHOLECALCIFEROL 1,000 UNITS TABLET 1000 UNITS PO (08:20)
[2023-02-16] MEDS: AMIODARONE HCL 100 MG TABLET PO (08:20)
[2023-02-16] MEDS: BISACODYL 5 MG TABLET EC 10 MG PO (08:20)
[2023-02-16] MEDS: SPIRONOLACTONE 25 MG TABLET PO (08:20)
[2023-02-16] MEDS: APIXABAN 5 MG TABLET PO (08:20)
[2023-02-16] MEDS: AMOXICILLIN/CLAVULANATE K 875-125 MG TAB 1 TABLET PO ×2 (08:20→20:33)
[2023-02-16] MEDS: ASPIRIN 81 MG ENTERIC TABLET PO (08:20)
[2023-02-16] MEDS: SILVERGEL (ELTA) 45 ML 1 APPLIC TOPICAL (08:21)
[2023-02-16] MEDS: EUCERIN CREAM 120 GM JAR 1 APPLIC TOPICAL (08:21)
[2023-02-16 09:32] LABS: Folic Acid 9.3 ng/mL (2.76->20)
--- NOTE | 2023-02-16 14:41 | PM.IMPN ---
Progress Note: A&P Assessment and Plan (1) Sepsis: Qualifiers: Sepsis acute organ dysfunction status: unspecified Sepsis type: sepsis due to unspecified organism Qualified Code(s): A41.9 - Sepsis, unspecified organism Code(s): A41.9 - Sepsis, unspecified organism Status: Acute Assessment and Plan: Patient meets sepsis criteria with fever, elevated WBC, lactic acid and CRP. She was started on broad spectrum IV antibiotics with vanc + zosyn 02/08 Surgery consulted for debridement 02/08: 2/2 blood cultures positive for pseudomonas, sens cefepime/levaquin not zosyn, wound culture positive for proteus, sens augmentin, resistant to fluoroquinolones Repeat blood cx 02/10 and 02/11 NGTD 02/12: cont cefepime, d/c on levaquin + augmentin soon to complete a 14 day course, end date 02/23 02/13: transition to oral abx Infection improving. WBC remaining normal. Cont oral abx to complete a course (2) Acute respiratory failure with hypoxia: Code(s): J96.01 - Acute respiratory failure with hypoxia Status: Acute Assessment and Plan: Acute respiratory failure with new oxygen requirement, pulm congestion on CXR, symptoms likely secondary to acutely decompensated CHF vs pna, started lasix 40 mg IV q 12hrs 02/08. CTA for PE--canceled due to low GFR, would check V/Q scan but patient is on eliquis already and these are highly unreliable. CT chest 02/14 showing cardiomegaly and dependent atelectasis. Lasix on hold now due to LEXUS. Encourage IS use. Increase activity. (3) COPD exacerbation: Code(s): J44.1 - Chronic obstructive pulmonary disease with (acute) exacerbation Status: Deleted Assessment and Plan: Patient has COPD, not in acute exacerbation Continue nebulizers but wean down (4) Infected ulcer of skin: Qualifiers: Non-pressure ulcer stage: unspecified non-pressure ulcer stage Qualified Code(s): L98.499 - Non-pressure chronic ulcer of skin of other sites with unspecified severity; L08.9 - Local infection of the skin and subcutaneous tissue, unspecified Code(s): L98.499 - Non-pressure chronic ulcer of skin of other sites with unspecified severity; L08.9 - Local infection of the skin and subcutaneous tissue, unspecified Status: Acute Assessment and Plan: Patient with left lower extremity wound that is slowly healing. Appreciate GenSurg input. Continue current wound care. Continue Eucerin to intact skin. Abx as above (5) Renal insufficiency: Code(s): N28.9 - Disorder of kidney and ureter, unspecified Status: Acute Assessment and Plan: Creatinine in October was 1.7. No prior values to compare. Creatinine was 1.7 on admission here and climbed to 2.0 before trending back down to 1.4. Creatinine has climbed back up to 2.1 either related to the Lasix or this is her baseline since she is close to dry weight. Lasix remains on hold; she normally on Lasix 60mg daily at home. CT scan showed no suspicious masses or hydronephrosis of the kidneys. She did have bilateral atrophy noted. Urine output is not accurate. Continue to follow. (6) CHF exacerbation: Qualifiers: Heart failure type: unspecified Qualified Code(s): I50.9 - Heart failure, unspecified Code(s): I50.9 - Heart failure, unspecified Status: Acute Assessment and Plan: Patient with SOB. CXR on admission showing pulmonary vascular congestion. BNP 2470. She was started on Lasix IV. Fluid balance not accurate. Lasix transitioned to oral 02/11 but held 02/15 due to bump in creatinine but unclear on baseline renal function. Cr worse again so will hold spironolactone. No Empagliflozin given renal function. Check Echo. (7) DVT (deep venous thrombosis): Code(s): I82.409 - Acute embolism and thrombosis of unspecified deep veins of unspecified lower extremity Status: Acute Assessment and Plan: Patient with hx of DVT in Oct 2022. On chroni
[2023-02-16] MEDS: CYANOCOBALAMIN INJ 1,000 MCG/ML VIAL 1000 MCG SUB-Q (17:02)
[2023-02-16] MEDS: APIXABAN 2.5 MG TABLET PO (20:34)
[2023-02-16] MEDS: ACETAMINOPHEN 325 MG TABLET 650 MG PO (20:38)
[2023-02-17] VITALS (8 sets, daily range): BP systolic 113–140; BP diastolic 41–60; PULSE 60–80; RESP 18–20; TEMP 36.1; O2SAT 96–98
[2023-02-17 06:18] LABS: Basophils Percent Auto 0.7 % (0.2-1.2); Hematocrit 27.7 % (37.0-47.0); Hemoglobin 8.1 g/dL (12.0-15.0); Immature Granulocyte Absolute 0.04 K/mm3 (0.00-0.031); Lymphocytes Absolute Auto 0.78 K/mm3 (0.9-3.2); Lymphocytes Percent Auto 18.7 % (18.3-44.2); Mean Corpuscular HGB Conc 29.2 g/dl (32-36); Mean Corpuscular Hemoglobin 30.2 pg (26-34); Mean Corpuscular Volume 103.4 fl (80-100); Mean Platelet Volume 9.6 fl (7.4-10.4); Monocytes Absolute Auto 0.5 K/mm3 (0.1-0.6); Neutrophils Absolute Auto 2.8 K/mm3 (1.3-6.7); Neutrophils Percent Auto 66.6 % (45.5-73.1); Platelet Count Result 206 k/mm3 (150-375); Red Blood Count 2.68 M/mm3 (4.2-5.4); Red Cell Distribution Width 14.9 % (11.5-14.5); White Blood Count 4.2 K/mm3 (4.5-10.0)
[2023-02-17 06:53] LABS: Alanine Aminotransferase 19 U/L (6-35); Albumin Level 2.8 g/dL (3.5-5.1); Alkaline Phosphatase 43 U/L (38-126); Anion Gap 6 mmol/L (8-16); Aspartate Amino Transferase 31 U/L (14-36); Bilirubin,Total 0.6 mg/dL (0.2-1.3); Blood Urea Nitrogen 55 mg/dL (7-17); Calcium 8.6 mg/dL (8.4-10.2); Carbon Dioxide 26 mmol/L (22-30); Chloride 106 mmol/L (98-107); Estimated CRCL calculation 28 ml/min; Estimated Glomerular Filt Rate 28; Glucose 93 mg/dL (65-110); Potassium 5.8 mmol/L (3.4-5.0); Sodium 138 mmol/L (137-145)
[2023-02-17] MEDS: IPRATROPIUM BR 0.02% INH SOLN 0.5 MG/2.5 ML VIAL INHALATION ×2 (07:29→13:37)
[2023-02-17] MEDS: ALBUTEROL SULFATE NEB 2.5 MG/3 ML INH INHALATION ×2 (07:29→13:37)
[2023-02-17] MEDS: AMIODARONE HCL 100 MG TABLET PO (08:12)
[2023-02-17] MEDS: BISACODYL 5 MG TABLET EC 10 MG PO (08:12)
[2023-02-17] MEDS: AMOXICILLIN/CLAVULANATE K 875-125 MG TAB 1 TABLET PO (08:12)
[2023-02-17] MEDS: levoFLOXacin 750 MG TABLET PO (08:13)
[2023-02-17] MEDS: CHOLECALCIFEROL 1,000 UNITS TABLET 1000 UNITS PO (08:13)
[2023-02-17] MEDS: CYANOCOBALAMIN 1,000 MCG TABLET 1000 MCG PO (08:13)
[2023-02-17] MEDS: traMADol HCL (*CRX) 25 MG TABLET PO (08:13)
[2023-02-17] MEDS: APIXABAN 2.5 MG TABLET PO (08:13)
[2023-02-17] MEDS: SILVERGEL (ELTA) 45 ML 1 APPLIC TOPICAL (08:14)
[2023-02-17] MEDS: EUCERIN CREAM 120 GM JAR 1 APPLIC TOPICAL (08:14)
[2023-02-17] MEDS: ASPIRIN 81 MG ENTERIC TABLET PO (08:27)
--- NOTE | 2023-02-17 09:08 | PM.PNGS ---
Progress Note: A&P Assessment and Plan (1) Venous stasis ulcer of ankle limited to breakdown of skin without varicose veins: Code(s): I87.2 - Venous insufficiency (chronic) (peripheral); L97.301 - Non-pressure chronic ulcer of unspecified ankle limited to breakdown of skin Status: Acute Assessment and Plan: Very slow to heal. Not infected. Continue silver gel with Adaptic covering followed by gauze and Kerlix wrap. Try to keep left leg elevated (2) Venous stasis dermatitis of left lower extremity: Code(s): I87.2 - Venous insufficiency (chronic) (peripheral) Status: Acute Assessment and Plan: Tenderness above the ulcer consistent with venous stasis changes and disease. Stasis dermatitis. Subjective Subjective Date/Time Seen: 02/17/23 09:08 Patient reports: no new complaints Review of Systems Review of Systems: All systems reviewed & are unremarkable except as noted in HPI and below (HPI and those items noted below) Constitutional: Constitutional: Denies chills and Denies fever(s) Cardiovascular: Cardiovascular: Denies chest pain, Denies diaphoresis, Denies dyspnea and Denies paroxysmal nocturnal dyspnea Respiratory: Respiratory: Denies chest congestion, Denies cough and Denies dyspnea Integumentary/Breasts: Skin/Breast: Denies lesions and Denies rash Exam Extrem: Left lower extremity: ankle (Dressing not removing eschar with Adaptic in place, ulcer no smaller.) Details: tenderness (Above ulcer in area of dermatosclerosis.) and pitting edema Objective Data Vital Signs Vital Signs: Vital Signs - 24 hr 02/16/23 14:00 02/16/23 14:22 02/16/23 14:22 Temperature 36.1 C L Pulse Rate 76 76 Respiratory Rate 20 18 Blood Pressure 113/44 L Pulse Oximetry 95 91 Oxygen Delivery Room Air 02/16/23 14:39 02/16/23 19:50 02/16/23 20:05 Temperature Pulse Rate 71 90 91 Respiratory Rate 18 18 20 Blood Pressure Pulse Oximetry Oxygen Delivery 02/16/23 20:51 02/17/23 06:00 02/17/23 07:30 Temperature 36.3 C L 36.1 C L Pulse Rate 91 63 Respiratory Rate 20 20 Blood Pressure 106/43 L 140/60 Pulse Oximetry 95 96 96 Oxygen Delivery Room Air 02/17/23 07:30 02/17/23 07:44 02/17/23 08:12 Temperature Pulse Rate 60 60 80 Respiratory Rate 18 18 Blood Pressure Pulse Oximetry Oxygen Delivery Intake/Output Intake/Output: Intake & Output 02/14/23 02/15/23 02/16/23 02/17/23 23:59 23:59 23:59 23:59 Intake Total 1330 1510 250 236 Output Total 150 600 400 150 Balance 1180 910 -150 86 Meds/Results Medications: Active Medications Generic Name Dose Route Start Last Admin Trade Name Freq PRN Reason Stop Dose Admin Acetaminophen 650 mg 02/08/23 20:25 02/16/23 20:38 Acetaminophen 325 Mg Tablet PO 650 mg Q4H PRN Administration Mild Pain (1-3) or Fever Albuterol 2.5 mg 02/16/23 20:00 02/17/23 07:29 Albuterol Sulfate Neb 2.5 Mg/3 Ml Inh INHALATION 2.5 mg [id number] WOLFGANG Administration Amiodarone HCl 100 mg 02/09/23 08:00 02/17/23 08:12 Amiodarone Hcl 100 Mg Tablet PO 100 mg DAILY@0800 WOLFGANG Administration Amoxicillin/Clavulanate Potassium 1 tablet 02/13/23 21:00 02/17/23 08:12 Amoxicillin/Clavulanate K 875-125 Mg Tab PO 02/23/23 22:00 1 tablet Q12HR WOLFGANG Administration Apixaban 2.5 mg 02/16/23 21:00 02/17/23 08:13 Apixaban 2.5 Mg Tablet PO 2.5 mg Q12HR WOLFGANG Administration Aspirin 81 mg 02/09/23 09:00 02/17/23 08:27 Aspirin 81 Mg Enteric Tablet PO 81 mg QAM WOLFGANG Administration Bisacodyl 10 mg 02/09/23 09:00 02/17/23 08:12 Bisacodyl 5 Mg Tablet Ec PO 10 mg DAILY WOLFGANG Administration Citalopram Hydrobromide 20 mg 02/09/23 09:00 02/10/23 08:31 Citalopram Hydrobromide 20 Mg Tablet PO 20 mg DAILY WOLFGANG Administration Cyanocobalamin 1,000 mcg 02/17/23 09:00 02/17/23 08:13 Cyanocobalamin 1,000 Mcg Tablet PO 1,000 mcg QAM WOLFGANG Administration Furo
--- NOTE | 2023-02-17 09:13 | PCPTNOTE ---
Patient refused treatment this session stating Not today. I am very tired. Educated patient on the importance of participating in therapy to improve strength and mobility. Patient states I know but I am too tired.
[2023-02-17 12:54] LABS: Potassium 4.8 mmol/L (3.4-5.0)
--- NOTE | 2023-02-17 14:17 | PM.DS ---
DS: Admitting Diagnosis Discharge Date 02/17/23 Admitting Diagnosis Shortness of breath DS: Discharge Diagnosis Discharge Diagnosis (1) Sepsis: Qualifiers: Sepsis acute organ dysfunction status: unspecified Sepsis type: sepsis due to unspecified organism Qualified Code(s): A41.9 - Sepsis, unspecified organism Code(s): A41.9 - Sepsis, unspecified organism Status: Acute (2) Acute respiratory failure with hypoxia: Code(s): J96.01 - Acute respiratory failure with hypoxia Status: Acute (3) COPD exacerbation: Code(s): J44.1 - Chronic obstructive pulmonary disease with (acute) exacerbation Status: Deleted (4) Infected ulcer of skin: Qualifiers: Non-pressure ulcer stage: unspecified non-pressure ulcer stage Qualified Code(s): L98.499 - Non-pressure chronic ulcer of skin of other sites with unspecified severity; L08.9 - Local infection of the skin and subcutaneous tissue, unspecified Code(s): L98.499 - Non-pressure chronic ulcer of skin of other sites with unspecified severity; L08.9 - Local infection of the skin and subcutaneous tissue, unspecified Status: Acute (5) Renal insufficiency: Code(s): N28.9 - Disorder of kidney and ureter, unspecified Status: Acute (6) CHF exacerbation: Qualifiers: Heart failure type: unspecified Qualified Code(s): I50.9 - Heart failure, unspecified Code(s): I50.9 - Heart failure, unspecified Status: Acute (7) DVT (deep venous thrombosis): Code(s): I82.409 - Acute embolism and thrombosis of unspecified deep veins of unspecified lower extremity Status: Acute (8) Arthritis of elbow, right, degenerative: Qualifiers: Osteoarthritis type: primary Qualified Code(s): 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 Please see H&P for details. Hospital Course: Patient met sepsis criteria with fever, elevated WBC, lactic acid and CRP on admission. She was started on broad spectrum IV antibiotics. Source felt related to left leg ulcer. Surgery was consulted. Wound dressings continued. BCx (02/08) 2/2 were positive for pseudomonas. Wound culture was positive for proteus. Repeat BCx 02/10 and 02/11 were negative. She had clinical improvement. Plan for Levaquin + Augmentin to complete a 14 day course, end date 02/23. Patient also developed acute respiratory failure with new oxygen requirement. She had pulmonary congestion on CXR. Symptoms likely secondary to acutely decompensated CHF vs PNA. Unable to do CTA for PE due to low GFR and patient already on Eliquis for known DVT in October. She did have a CT chest 02/14 showing cardiomegaly and dependent atelectasis. Patient with SOB. CXR on admission showing pulmonary vascular congestion. BNP 2470. She was started on Lasix IV. Lasix transitioned to oral 02/11 but held 02/15 due to bump in creatinine but unclear on baseline renal function. Cr worse again so we held spironolactone. No Empagliflozin given renal function. Echo showing EF 50-55% with grade I diastolic dysfunction. Creatinine in October was 1.7.? No prior values to compare.? Creatinine was 1.7 on admission here and climbed to 2.0 before trending back down to 1.4.? Creatinine then climbed back up to 2.1 either related to the Lasix or this is her baseline since she is close to dry weight.? Lasix was held; she normally on Lasix 60mg daily at home. CT scan showed no suspicious masses or hydronephrosis of the kidneys.? She did have bilateral atrophy noted. Cr improved to 1.7. Patient with hx of DVT in Oct 2022. On chronic anticoagulation with Eliquis. Since it has been?4 months of treatment and she
[2023-02-17 15:12] LABS: EDCOVIDSCREEN Negative (Negative)
--- NOTE | 2023-02-17 19:45 | PC.NURSE ---
Pt has been discharged at this time, back to her facility per EMS. Report called and paperwork sent.
== END 2023-02-17 20:59 | DRG 871 ==
LOC: ANHED 18:43 → ANH3MEDSUR 21:36
PROVIDERS: Emergency Medicine; Student in an Organized Health Care Education/Training Program; Admitting Provider Internal Medicine; Emergency Provider Physician Assistant; PCP Internal Medicine; Visit Provider Internal Medicine
DX: A41.52 Sepsis due to Pseudomonas (principal); I50.31 Acute diastolic (congestive) heart failure; J96.01 Acute respiratory failure with hypoxia; L97.929 Non-pressure chronic ulcer of unspecified part of left lower leg with unspecified severity; F05 Delirium due to known physiological condition; I82.412 Acute embolism and thrombosis of left femoral vein; M19.021 Primary osteoarthritis, right elbow; J44.9 Chronic obstructive pulmonary disease, unspecified; N18.9 Chronic kidney disease, unspecified; D63.1 Anemia in chronic kidney disease; F03.90 Unspecified dementia, unspecified severity, without behavioral disturbance, psychotic disturbance, mood disturbance, and anxiety; Z20.822 Contact with and (suspected) exposure to COVID-19; Z79.01 Long term (current) use of anticoagulants; M19.011 Primary osteoarthritis, right shoulder
CPT/HCPCS: 20610; 36415; 36600; 71045; 71250; 73030; 73070; 73590; 74176; 80048; 80053; 81003; 82607; 82728; 82746; 82805; 83036; 83540; 83550; 83605; 83690; 83880; 84132; 84145; 84443; 84484; 85025; 85610; 85730; 86140; 87040; 87070; 87077; 87186; 87205; 87426; 87636; 93005; 93306; 94640; 96365; 96366; 96367; 96375; 96376; 97110; 97161; 97530; 99285; A9270; C9803; G0378; J0692; J1170; J1940; J2060; J2405; J2543; J3370; J3420; J3475; J7030

== ENCOUNTER 2023-04-14 01:27 | Inpatient (IN) | payer OTHER, SELFPAY ==
[2023-04-14] VITALS (60 sets, daily range): BP systolic 113–172; BP diastolic 44–85; PULSE 70–101; RESP 14–28; TEMP 35.6–36.7; O2SAT 90–100; BMI 43.6
--- NOTE | ~2023-04-14 | XR_ITS ---
Portable chest x-ray Comparison: 04/14/2023 Clinical History: Shortness of breath Findings: There is linear right basilar scarring or atelectasis. Lungs are otherwise clear. Cardiom ediastinal silhouette is stable. Left shoulder arthroplasty noted. Impression: Linear bibasilar scarring or atelectasis, otherwise clear lungs. Reviewed, dictated and finalized at location . Impression: Linear bibasilar scarring or atelectasis, otherwise clear lungs.
--- NOTE | ~2023-04-14 | XR_ITS ---
Portable chest x-ray Comparison: 02/14/2023 Clinical History: Dyspnea Findings: There is central congestive change and minimal central pulmonary edema. No definite pleura l effusion. Cardiomediastinal silhouette is stable. Left shoulder arthroplasty in place. Impression: Central congestive change and minimal central pulmonary edema. Reviewed, dictated and finalized at [facility]. Impression: Central congestive change and minimal central pulmonary edema.
--- NOTE | 2023-04-14 01:35 | ECG_ITS ---
Measurements Intervals Elliott Rate: 94 P: 67 WY: 187 QRS: 9 QRSD: 93 T: 8 QT: 359 QTc: 449 Interpretive Statements BASELINE ARTIFACT/POOR QUALITY ECG SINUS RHYTHM GROSSLY NORMAL ECG COMPARED TO ECG 02/10/2023 14:07:51 NO OBVIOUS CHANGE HOWEVER THIS TRACING IS OF POOR QUALITY Electronically Signed On 04-14-2023 13:02:13 CDT by Pablo Mota M.D.
[2023-04-14] MEDS: ALBUTEROL SULFATE NEB 2.5 MG/3 ML INH 10 MG INHALATION (01:48)
[2023-04-14] MEDS: IPRATROPIUM BR 0.02% INH SOLN 0.5 MG/2.5 ML VIAL 1 MG INHALATION (01:48)
[2023-04-14 01:56] LABS: Basophils Percent Auto 0.5 % (0.2-1.2); Eosinophils Absolute Auto 0.1 K/mm3 (0-0.3); Eosinophils Percent Auto 0.9 % (0-4.4); Hematocrit 30.4 % (37.0-47.0); Immature Granulocyte Absolute 0.03 K/mm3 (0.00-0.031); Immature Granulocyte Percent A 0.4 % (0-0.5); Lymphocytes Absolute Auto 1.76 K/mm3 (0.9-3.2); Lymphocytes Percent Auto 21.6 % (18.3-44.2); Mean Corpuscular HGB Conc 29.6 g/dl (32-36); Mean Corpuscular Volume 98.1 fl (80-100); Mean Platelet Volume 9.8 fl (7.4-10.4); Monocytes Absolute Auto 0.8 K/mm3 (0.1-0.6); Monocytes Percent Auto 9.5 % (2.6-8.5); Neutrophils Absolute Auto 5.5 K/mm3 (1.3-6.7); Neutrophils Percent Auto 67.1 % (45.5-73.1); Platelet Count Result 188 k/mm3 (150-375); Red Cell Distribution Width 17.2 % (11.5-14.5); White Blood Count 8.1 K/mm3 (4.5-10.0)
[2023-04-14 02:08] LABS: Anisocytosis 1+ (NORMAL); Hypochromasia 1+ (NORMAL); Platelet Estimate Adequate (Adequate); Poikilocytosis 1+ (NORMAL); Schistocytes Rare (NORMAL)
[2023-04-14 02:09] LABS: Alanine Aminotransferase 24 U/L (6-35); Albumin Level 3.3 g/dL (3.5-5.1); Alkaline Phosphatase 66 U/L (38-126); Anion Gap 3 mmol/L (8-16); Aspartate Amino Transferase 39 U/L (14-36); Bilirubin,Total 0.6 mg/dL (0.2-1.3); Blood Urea Nitrogen 25 mg/dL (7-17); Calcium 8.4 mg/dL (8.4-10.2); Carbon Dioxide 25 mmol/L (22-30); Chloride 107 mmol/L (98-107); Estimated CRCL calculation 36 ml/min; Estimated Glomerular Filt Rate 43; Glucose 134 mg/dL (65-110); Magnesium 2.5 mg/dL (1.6-2.3); Potassium 4.1 mmol/L (3.4-5.0); Sodium 135 mmol/L (137-145)
[2023-04-14 02:10] LABS: Lactic Acid Reflex 2.1 mmol/L (0.7-2.0)
[2023-04-14 02:11] LABS: Base Excess ABG -1.1 mEq/l (+/-2.0); Device NON-INVASIVE VENT; Fractional Inspired Oxygen 60 %; HCO3 ABG 24.2 mEq/l (22.0-26.0); Modified Allen's Test Pass; Oxygen Content ABG 14.2 %vol (16.0-22.0); Oxygen Saturation ABG 99.3 % (95.0-100.0); Oxyhemoglobin 97.5 % THb (90.0-100.0); PCO2 ABG 42.7 mmHg (35.0-45.0); PO2 ABG 194.8 mmHg (80.0-100.0); PO2 FiO2 Ratio Arterial Blood 3.25 %; Site Drawn LEFT BRACHIAL; pH ABG 7.371 (7.350-7.450)
[2023-04-14 02:11] LABS: INR 1.7; Prothrombin Time 20.8 Seconds (11.1-14.7)
[2023-04-14 02:12] LABS: Partial Thromboplastin Time 34.4 SECONDS (22.3-36.8)
[2023-04-14 02:12] LABS: Non-Invasive Expiratory Pressure 5 CMH2O; Non-Invasive Inspiratory Pressure 10 CMH2O; Non-Invasive Vent Rate 12 /MIN
[2023-04-14 02:25] LABS: NT Pro B Type Natriuretic Pept 14800 pg/mL (19.9-100); Troponin I 0.048 ng/mL (0.000-0.034)
--- NOTE | 2023-04-14 02:34 | ED.GENADULT ---
HPI - General Adult General Chief complaint: Shortness of Breath/Dyspnea Stated complaint: ACUTE RESP DISTRESS Time Seen by Provider: 04/14/23 01:31 History of Present Illness HPI narrative: Patient 87-year-old female who presents to the emergency department with chief complaint of shortness of breath. Using a resident of a local nursing facility and started having severe shortness of breath EMS was called and give the patient steroids breathing treatments epi and started her on CPAP. History is limited due to the shortness of breath Related Data Home Medications Medication Instructions Recorded Confirmed Dulcolax (bisacodyl) 10 mg PO DAILY 02/08/23 02/08/23 Klor-Con 10 10 meq PO DAILY 02/08/23 02/08/23 Miralax 17 g PO DAILY 02/08/23 02/08/23 Voltaren 1 % topical BID 02/08/23 02/08/23 amiodarone 100 mg tablet 100 mg PO DAILY 02/08/23 02/08/23 aspirin 81 mg PO DAILY 02/08/23 02/08/23 cholecalciferol (vitamin D3) 1,000 unit PO DAILY 02/08/23 02/08/23 citalopram 20 mg tablet 20 mg PO DAILY 02/08/23 02/08/23 ferrous sulfate 352 mg PO DAILY 02/08/23 02/08/23 furosemide 20 mg tablet 60 mg PO DAILY 02/08/23 02/08/23 ipratropium-albuterol 3 ml inhalation QID 02/08/23 02/08/23 magnesium 500 mg PO DAILY 02/08/23 02/08/23 spironolactone 25 mg tablet 25 mg PO DAILY 02/08/23 02/08/23 Allergies Allergy/AdvReac Type Severity Reaction Status Date / Time codeine Allergy Other Verified 04/14/23 02:13 Review of Systems Review of Systems: A 10 system review of systems was completed on the patient and is negative except for what is stated in the HPI. Nursing and ancillary documentation was reviewed. [facility] Past Medical History Medical History Arthritis of elbow, right, degenerative CHF (congestive heart failure) Closed fracture of right proximal humerus COPD (chronic obstructive pulmonary disease) Degenerative arthritis of right shoulder region DVT (deep venous thrombosis) 2/8/23 Left lower extremity venous Doppler showed DVT involving left femoral vein. Previously on Eliquis with dose increased. History of atrial fibrillation Social History Social History Smoking status: Never smoker Alcohol intake: never Substance use: never Substance use type: does not use Lack of Transportation: No Lack of Food: Never True Current Housing: I Have Housing Concerned About Future Housing: No Difficulty Paying Gas/Electric Bills: No Difficulty Paying for Meds: No Currently Unemployed: No Education: High School Diploma/GED Difficulty w/ Childcare or Family Care: No Spiritual care concerns: No Exam Narrative: GENERAL: Ill-appearing, well-nourished, and in moderate acute respiratory distress. HEAD: Normocephalic, atraumatic. EYES: PERRLA and EOMI. ENT: Nares clear, no rhinorrhea or epistaxis. Mucous membranes moist. NECK: Supple. CHEST: Rhonchi to auscultation. Mild respiratory distress. HEART: Regular rate and rhythm. No murmur heard. Normal peripheral pulses. ABDOMEN: Soft, nontender, nondistended, normal active bowel sounds. EXTREMITIES: Normal range of motion. No edema. SKIN: Warm, dry, no rash. NEURO: No focal deficits. Alert and oriented x3. PSYCH: Normal mood and affect. Course Vital Signs Vital signs: Vital Signs Temperature 36.7 C 04/14/23 01:26 Pulse Rate 100 04/14/23 01:26 Respiratory Rate 22 H 04/14/23 01:26 Blood Pressure 143/85 H 04/14/23 01:26 Pulse Oximetry 100 04/14/23 01:26 Oxygen Delivery CPAP 04/14/23 01:26 Temperature 36.7 C 04/14/23 01:26 Pulse Rate 96 04/14/23 02:08 Respiratory Rate 21 H 04/14/23 02:08 Blood Pressure 143/85 H 04/14/23 01:26 Pulse Oximetry 98 04/14/23 01:50 Oxygen Delivery BiPAP 04/14/23 01:50 Medical Decision Making MDM Narrative Medical decision making narrative: Differential pa
--- NOTE | 2023-04-14 02:39 | PM.IMHP ---
H&P: HPI History of Present Illness Date/Time: 04/14/23 02:39 Chief Complaint: Shortness of breath Narrative: 87-year-old female with a past medical history of atrial fibrillation, CHF and dementia who presented to the ER from from [facility] due to shortness of breath. EMS administered DuoNeb and Solu-Medrol as well as 2 g of magnesium sulfate and 0.5 mg of IM epinephrine in the field. The patient was placed on CPAP due to work of breathing in the field. On arrival to the ER the patient was placed on BiPAP with settings of 10/5 with a rate of 12 and her FiO2 was weaned down to 35% by time of my evaluation. Patient had improvement in her respiratory status with BiPAP. On exam patient was noted to have edema of the lower extremities. She had some crackles at the bases. When I asked the patient why she came to the ER she was not able to specifically tell me. When I asked her if she had been having shortness of breath she said yes but said she does not know how long it had been ongoing. It sounds as if it may have been for a couple of days. She denies any chest pain currently. She states that she always coughs some. She states she has a tickle in her throat currently. She is only oriented to her 1st name and initially did not think she was in the hospital. She was unable to tell me any questions to orientation besides her name. She was afebrile on arrival to the ER. Patient was hospitalized 02/10/2023 through 02/17/2023. It looks like her Lasix was placed on hold at the end of her last hospitalization due to acute on chronic kidney injury. It looks like the patient may not have been receiving Lasix at the halfway however this is unclear. Review of Systems Review of Systems: Unobtainable due to the patient's dementia. Patient is alert oriented only to self PMFSH Past Medical History Medical History (Updated 04/14/23 @ 07:38 by Lucero Panchal DO) Arthritis of elbow, right, degenerative CHF (congestive heart failure) Echocardiogram 02/10/2023: EF 50-55%, septal wall motion abnormality related to bundle-branch block, mild left atrial enlargement, mild tricuspid regurgitation, grade 1 diastolic dysfunction Chronic kidney disease, stage 3b Chronic venous stasis dermatitis of both lower extremities Closed fracture of right proximal humerus (02/2023) Degenerative arthritis of right shoulder region Dementia Depression DVT (deep venous thrombosis) 10/19/22 Left lower extremity venous Doppler showed DVT involving left femoral vein. Previously on Eliquis with dose increased. Essential hypertension History of atrial fibrillation Hyperlipidemia Insomnia Morbid obesity Vitamin D deficiency Surgical History Surgical History (Updated 04/14/23 @ 07:30 by Lucero Panchal DO) History of total hysterectomy with bilateral salpingo-oophorectomy (BSO) History of total right knee replacement S/P insertion of IVC (inferior vena caval) filter Family History Family History (Updated 04/14/23 @ 07:22 by Lucero Panchal DO) Other Unknown family medical history Social History Social History (Updated 04/14/23 @ 07:23 by Lucero Panchal DO) Social History: The patient lives at [facility]. She states that she has a couple of children. She smoked briefly as a teenager. She denies any significant alcohol use. She thinks she had a couple of kids. Patient is not best historian is only oriented to person at the time of my evaluation. Code status: DNR/DNI (per halfway report) Smoking status: Never smoker Alcohol intake: never Substance use: never Substance use type: does not use Lack of Transportation: No Lack of Food: Never True Current Housing: I Have Housing Concerned About Future Housing: No Difficulty Paying Gas/Electric Bills: No Difficulty Paying for Meds: No Currently Unemployed: No Education: High School Diploma/GED Difficulty w/ Childcare
[2023-04-14] MEDS: FUROSEMIDE INJ 40 MG/4 ML VIAL IV PUSH ×3 (02:50→21:51)
[2023-04-14 03:31] LABS: Procalcitonin 0.1 ng/mL
[2023-04-14 04:54] LABS: Reflex Lactic Acid Yes or No Add Lactic
--- NOTE | 2023-04-14 05:50 | PC.NURSE ---
ED attempted to call report at 0410. Pt remains in the ED. Pt to be admitted to IMU 231 once room is clean. IMU staff has not assumed care of pt. Stat labs remain uncollected while pt in the ED. front office medical assistant reports discussing matter with ED charge nurse.
[2023-04-14 06:41] LABS: Lactic Acid 1.7 mmol/L (0.7-2.0)
--- NOTE | 2023-04-14 06:47 | PC.NURSE ---
Pt BP @ , MD Panchal notified at this time. No new orders.
[2023-04-14 06:58] LABS: Troponin I 0.065 ng/mL (0.000-0.034)
[2023-04-14 09:03] LABS: Magnesium 2.5 mg/dL (1.6-2.3)
--- NOTE | 2023-04-14 09:13 | ADMGEN ---
This patient, Darby Mcbride, was admitted to IMU Room 231-01. Patient/family oriented to hospital policies and general routines including ID bracelet, bed and alarms, visiting hours, pain management, procedures, bathroom and other care routines, personal items, smoking policy, room service/diet, and visiting hours. Information on how to activate the Rapid Response Team has been discussed. Patient/Family are encouraged to report perceived risks to care and to ask questions if they do not understand what they are told or what they should do.
[2023-04-14] MEDS: POTASSIUM CHLORIDE 20 MEQ ER TABLET 40 MEQ PO (09:54)
[2023-04-14 12:12] LABS: Appearance Urine Clear (Clear); Bacteria Urine 4+ /hpf; Bilirubin Urine Negative (Negative); Blood Urine Negative (Negative); Color Urine Yellow (Yellow); Glucose Urine UA Negative (Negative); Ketones Urine Negative (Negative); Leukocyte Esterase Ur 2+ LEU/UL (NEGATIVE); Need Manual Microscopic Reviewed; Nitrate Urine Negative (Negative); Non Pathogenic Casts 0-2; Protein Urine Negative (Negative); RBC Urine 0-2 /hpf (0-2); Specific Grav Ur 1.007 (1.001-1.035); Squamous Epithelial Cell Urine None seen /hpf (Few); Urobilinogen Urine 0.2 mg/dL (<2.0); WBC Urine 0-5 /hpf (0-3)
[2023-04-14 12:18] LABS: Add Urine Microscopic? YES
[2023-04-14] MEDS: ACETAMINOPHEN 325 MG TABLET 650 MG PO (12:34)
[2023-04-14] MEDS: APIXABAN 5 MG TABLET PO ×2 (12:34→21:51)
[2023-04-14] MEDS: EUCERIN CREAM 120 GM JAR 1 APPLIC TOPICAL (12:34)
[2023-04-14] MEDS: HYDROCORTISONE 2.5% CREAM 30 GM TUBE 1 APPLIC TOPICAL (12:34)
[2023-04-14] MEDS: AMIODARONE HCL 100 MG TABLET PO (12:34)
[2023-04-14 13:20] LABS: Troponin I 0.047 ng/mL (0.000-0.034)
[2023-04-14] MEDS: SILVERGEL (ELTA) 45 ML 1 APPLIC TOPICAL (13:26)
[2023-04-14] MEDS: ALBUTEROL SULFATE NEB 2.5 MG/3 ML INH INHALATION (21:12)
[2023-04-15] VITALS (24 sets, daily range): BP systolic 109–165; BP diastolic 46–78; PULSE 67–88; RESP 14–28; TEMP 36.1–36.5; O2SAT 93–100
[2023-04-15] MEDS: ALBUTEROL SULFATE NEB 2.5 MG/3 ML INH INHALATION ×4 (02:10→20:57)
[2023-04-15 05:43] LABS: Hematocrit 26.9 % (37.0-47.0); Hemoglobin 8.1 g/dL (12.0-15.0); Mean Corpuscular HGB Conc 30.1 g/dl (32-36); Mean Corpuscular Hemoglobin 28.9 pg (26-34); Mean Corpuscular Volume 96.1 fl (80-100); Mean Platelet Volume 9.9 fl (7.4-10.4); Platelet Count Result 168 k/mm3 (150-375); Red Cell Distribution Width 17.2 % (11.5-14.5); White Blood Count 5.4 K/mm3 (4.5-10.0)
[2023-04-15 05:51] LABS: Anion Gap 2 mmol/L (8-16); Blood Urea Nitrogen 32 mg/dL (7-17); Calcium 8.5 mg/dL (8.4-10.2); Carbon Dioxide 27 mmol/L (22-30); Chloride 106 mmol/L (98-107); Estimated CRCL calculation 29 ml/min; Estimated Glomerular Filt Rate 31; Glucose 116 mg/dL (65-110); Potassium 4.3 mmol/L (3.4-5.0); Sodium 135 mmol/L (137-145)
[2023-04-15] MEDS: CYANOCOBALAMIN 1,000 MCG TABLET 1000 MCG PO (08:53)
[2023-04-15] MEDS: POTASSIUM CHLORIDE 20 MEQ ER TABLET 40 MEQ PO (08:53)
[2023-04-15] MEDS: ACETAMINOPHEN 325 MG TABLET 650 MG PO (08:53)
[2023-04-15] MEDS: AMIODARONE HCL 100 MG TABLET PO (08:54)
[2023-04-15] MEDS: polyethylene glycoL 3350 17 GM POWD.PACK PO (08:54)
[2023-04-15] MEDS: APIXABAN 5 MG TABLET PO ×2 (08:54→21:15)
[2023-04-15] MEDS: ASPIRIN 81 MG CHEWABLE TABLET PO (08:54)
[2023-04-15] MEDS: MULTIVITAMINS THERAPEUTIC TAB (*BKC) 1 TABLET PO (08:54)
[2023-04-15] MEDS: FERROUS SULFATE 325 MG TABLET DR PO (08:54)
[2023-04-15] MEDS: EUCERIN CREAM 120 GM JAR 1 APPLIC TOPICAL (08:55)
[2023-04-15] MEDS: HYDROCORTISONE 2.5% CREAM 30 GM TUBE 1 APPLIC TOPICAL ×2 (08:55→21:17)
[2023-04-15] MEDS: SILVERGEL (ELTA) 45 ML 1 APPLIC TOPICAL (08:56)
[2023-04-15] MEDS: MAGNESIUM 27 MG TABLET (500 MG MAG GLUCONATE) PO (08:58)
[2023-04-15] MEDS: CHOLECALCIFEROL 1,000 UNITS TABLET 1000 UNITS PO (08:58)
[2023-04-15] MEDS: FUROSEMIDE INJ 40 MG/4 ML VIAL IV PUSH (09:35)
--- NOTE | 2023-04-15 11:50 | PM.IMPN ---
Progress Note: A&P Assessment and Plan (1) Acute exacerbation of CHF (congestive heart failure): Qualifiers: Heart failure type: diastolic Qualified Code(s): I50.33 - Acute on chronic diastolic (congestive) heart failure Code(s): I50.9 - Heart failure, unspecified Status: Acute (2) Acute respiratory failure with hypoxia: Code(s): J96.01 - Acute respiratory failure with hypoxia Status: Acute (3) Chronic kidney disease, stage 3b: Code(s): N18.32 - Chronic kidney disease, stage 3b Status: Acute (4) Elevated troponin: Code(s): R77.8 - Other specified abnormalities of plasma proteins Status: Acute (5) Anticoagulant long-term use: Code(s): Z79.01 - long term care social worker (current) use of anticoagulants Status: Acute (6) Venous stasis ulcer of ankle limited to breakdown of skin without varicose veins: Qualifiers: Laterality: left Qualified Code(s): I87.2 - Venous insufficiency (chronic) (peripheral); L97.321 - Non-pressure chronic ulcer of left ankle limited to breakdown of skin Code(s): I87.2 - Venous insufficiency (chronic) (peripheral); L97.301 - Non-pressure chronic ulcer of unspecified ankle limited to breakdown of skin Status: Acute (7) Dementia: Qualifiers: Dementia type: unspecified type Dementia severity: severe Dementia behavioral or psychological symptom: with mood disturbance Qualified Code(s): F03.C3 - Unspecified dementia, severe, with mood disturbance Code(s): F03.90 - Unspecified dementia, unspecified severity, without behavioral disturbance, psychotic disturbance, mood disturbance, and anxiety Status: Acute Plan The patient presented with acute hypoxic respiratory failure respiratory distress due to acute CHF exacerbation. Continue Lasix but will decrease the dose and change it to oral since renal functions are slightly worse. Monitor BMP. Continue BiPAP Patient does have elevated troponin but it appears to be chronic in nature and stable with a flat profile. No evidence of acute myocardial ischemia. The chronically elevated troponins likely due to heart failure and chronic kidney disease. The patient does have a chronic venous stasis ulcer but does not appear to be acutely infected difficult to assess completely due to presence of cream that is underlying the dressing. Continue localized wound care per what patient was receiving at the snf. Start on doxycycline p.o. b.i.d. for bilateral lower extremity cellulitis Patient does have a history of AFib and prior DVTs. She has IVC filter in place. She is on chronic Eliquis. Will continue Eliquis. Patient is currently in sinus rhythm. The patient does have baseline dementia. Will avoid sedating or opiate medications that could cause worsening confusion. Will place patient on fall precautions. Subjective Date/time seen: 04/15/23 11:50 Interval history: No new issues overnight Review of Systems Review of Systems: Unobtainable due to the patient's dementia. Patient is alert oriented only to self Exam Narrative: Weight 100 kg BMI 35.6 Const: Other: Acutely ill-appearing, morbidly obese, appears stated age, deconditioning HENMT: Other: Oral exam limited due to BiPAP, fair dentition, head is normocephalic atraumatic Eyes: Other: Pupils are equal and reactive with evidence of bilateral cataract lens replacements, mild conjunctival pallor, no scleral icterus Neck: Other: Large neck circumference, no significant JVD but patient is sitting completely upright in bed with the head of the bed at 45? Resp: Other: Coarse crackles at bilateral bases, mild tachypnea, accessory muscle use Cardio: Other: Regular rate, regular rhythm, 2+ bilateral radial pedal pulses GI: Other: Obese, nontender, positive bowel sounds, soft, unable to assess for organomegaly due to patient positioning
--- NOTE | 2023-04-15 13:18 | PC.NURSE ---
Addendum entered by Shaye Johnson RN 04/15/23 14:21: Didn't end up moving patient until 1400 due to patient finishing lunch. Original Note: This patient, Darby Mcbride, was transferred to [[id number] ] on 04/15/23 at 1330. Personal belongings sent with patient. Report given to [Evita ]. Appropriate documentation sent with patient. Attempted to call NIKITA Hameed to notify of move. Message left to please call back.
[2023-04-15] MEDS: DOXYCYCLINE HYCLATE 100 MG TABLET PO ×2 (13:19→21:15)
--- NOTE | 2023-04-15 16:25 | PC.NURSE ---
This patient, Darby Mcbride, was received from [ ] on 04/15/23 at 1625. Patient/family oriented to unit policies and routines.
[2023-04-15] MEDS: FUROSEMIDE 40 MG TABLET PO (18:20)
[2023-04-15 19:31] LABS: Alveolar/Arterial O2 Gradient 45.2 mmHg; Base Excess ABG 5.6 mEq/l (+/-2.0); Fractional Inspired Oxygen 28 %; HCO3 ABG 29.8 mEq/l (22.0-26.0); Oxygen Content ABG 12.9 %vol (16.0-22.0); Oxygen Saturation ABG 98.1 % (95.0-100.0); Oxyhemoglobin 96.4 % THb (90.0-100.0); PO2 ABG 104.9 mmHg (80.0-100.0); PO2 FiO2 Ratio Arterial Blood 3.75 %; Total Hemoglobin 9.4 g/dL (12.0-18.0); pH ABG 7.469 (7.350-7.450)
[2023-04-15 19:32] LABS: Device BIPAP; Modified Allen's Test Pass; Site Drawn LEFT RADIAL
[2023-04-15 19:33] LABS: Expiratory Pressure 5 cmH2O; Inspiratory Pressure 12 cmH2O
--- NOTE | 2023-04-15 19:35 | PC.NURSE ---
1820- Patient c/o SOB and trouble breathing, O2 stats 95% on room air, expiratory wheezing noted. Respiratory paged and medications given. PT still complaining of SOB . Increased WOB noted and Rate of 24-28, o2 stats remain 95-98%. 0 paged provider, orders received. Patient remains on BiPAP at this time.
[2023-04-15 19:36] LABS: Hematocrit 28.6 % (37.0-47.0); Hemoglobin 8.6 g/dL (12.0-15.0)
[2023-04-15] MEDS: methylPREDNISolone SOD SUCC 125 MG VIAL IV PUSH (19:51)
[2023-04-16] VITALS (23 sets, daily range): BP systolic 128–146; BP diastolic 57–83; PULSE 70–86; RESP 16–28; TEMP 35.6–36.5; O2SAT 94–100
[2023-04-16 01:15] LABS: Hematocrit 29.8 % (37.0-47.0); Hemoglobin 8.7 g/dL (12.0-15.0)
[2023-04-16] MEDS: ALBUTEROL SULFATE NEB 2.5 MG/3 ML INH INHALATION ×4 (01:34→19:19)
[2023-04-16] MEDS: methylPREDNISolone SOD SUCC 125 MG VIAL 80 MG IV PUSH ×3 (04:19→20:34)
[2023-04-16 06:35] LABS: Hemoglobin 8.9 g/dL (12.0-15.0); Mean Corpuscular HGB Conc 29.7 g/dl (32-36); Mean Corpuscular Hemoglobin 28.8 pg (26-34); Mean Corpuscular Volume 97.1 fl (80-100); Mean Platelet Volume 9.7 fl (7.4-10.4); Platelet Count Result 170 k/mm3 (150-375); Red Blood Count 3.09 M/mm3 (4.2-5.4)
[2023-04-16 06:47] LABS: Anion Gap 5 mmol/L (8-16); Blood Urea Nitrogen 38 mg/dL (7-17); Calcium 8.6 mg/dL (8.4-10.2); Carbon Dioxide 29 mmol/L (22-30); Chloride 103 mmol/L (98-107); Estimated CRCL calculation 28 ml/min; Estimated Glomerular Filt Rate 31; Glucose 156 mg/dL (65-110); Potassium 4.5 mmol/L (3.4-5.0); Sodium 137 mmol/L (137-145)
[2023-04-16] MEDS: POTASSIUM CHLORIDE 20 MEQ ER TABLET 40 MEQ PO (08:21)
[2023-04-16] MEDS: CYANOCOBALAMIN 1,000 MCG TABLET 1000 MCG PO (08:22)
[2023-04-16] MEDS: APIXABAN 5 MG TABLET PO ×2 (08:22→20:34)
[2023-04-16] MEDS: FUROSEMIDE 40 MG TABLET PO (08:22)
[2023-04-16] MEDS: DOXYCYCLINE HYCLATE 100 MG TABLET PO ×2 (08:22→20:34)
[2023-04-16] MEDS: FERROUS SULFATE 325 MG TABLET DR PO (08:22)
[2023-04-16] MEDS: ASPIRIN 81 MG CHEWABLE TABLET PO (08:23)
[2023-04-16] MEDS: SILVERGEL (ELTA) 45 ML 1 APPLIC TOPICAL (08:23)
[2023-04-16] MEDS: HYDROCORTISONE 2.5% CREAM 30 GM TUBE 1 APPLIC TOPICAL (08:23)
[2023-04-16] MEDS: EUCERIN CREAM 120 GM JAR 1 APPLIC TOPICAL (08:23)
[2023-04-16] MEDS: CHOLECALCIFEROL 1,000 UNITS TABLET 1000 UNITS PO (08:23)
[2023-04-16] MEDS: AMIODARONE HCL 100 MG TABLET PO (08:24)
[2023-04-16] MEDS: MULTIVITAMINS THERAPEUTIC TAB (*BKC) 1 TABLET PO (11:08)
[2023-04-16] MEDS: MAGNESIUM 27 MG TABLET (500 MG MAG GLUCONATE) PO (11:09)
--- NOTE | 2023-04-16 11:48 | PM.IMPN ---
Progress Note: A&P Assessment and Plan (1) Acute exacerbation of CHF (congestive heart failure): Qualifiers: Heart failure type: diastolic Qualified Code(s): I50.33 - Acute on chronic diastolic (congestive) heart failure Code(s): I50.9 - Heart failure, unspecified Status: Acute Assessment and Plan: Improving. Renal function slightly worse. Decrease Lasix dose to once a day oral (2) Acute respiratory failure with hypoxia: Code(s): J96.01 - Acute respiratory failure with hypoxia Status: Acute Assessment and Plan: Improving. continue BiPAP. Oxygen p.r.n. when taking a break from BiPAP (3) Chronic kidney disease, stage 3b: Code(s): N18.32 - Chronic kidney disease, stage 3b Status: Acute Assessment and Plan: Renal function study was most likely from diuresis. Decrease Lasix dose. Monitor BMP (4) Elevated troponin: Code(s): R77.8 - Other specified abnormalities of plasma proteins Status: Acute Assessment and Plan: Likely demand ischemia (5) Anticoagulant long-term use: Code(s): Z79.01 - [facility] (current) use of anticoagulants Status: Acute Assessment and Plan: Patient does have a history of AFib and prior DVTs. She has IVC filter in place. She is on chronic Eliquis. Will continue Eliquis. Patient is currently in sinus rhythm. (6) Venous stasis ulcer of ankle limited to breakdown of skin without varicose veins: Qualifiers: Laterality: left Qualified Code(s): I87.2 - Venous insufficiency (chronic) (peripheral); L97.321 - Non-pressure chronic ulcer of left ankle limited to breakdown of skin Code(s): I87.2 - Venous insufficiency (chronic) (peripheral); L97.301 - Non-pressure chronic ulcer of unspecified ankle limited to breakdown of skin Status: Acute Assessment and Plan: on doxycycline p.o. b.i.d. for bilateral lower extremity cellulitis (7) Dementia: Qualifiers: Dementia type: unspecified type Dementia severity: severe Dementia behavioral or psychological symptom: with mood disturbance Qualified Code(s): F03.C3 - Unspecified dementia, severe, with mood disturbance Code(s): F03.90 - Unspecified dementia, unspecified severity, without behavioral disturbance, psychotic disturbance, mood disturbance, and anxiety Status: Acute Subjective Date/time seen: 04/16/23 11:48 Interval history: No overnight events Review of Systems Review of Systems: Unobtainable due to the patient's dementia. Patient is alert oriented only to self Exam Narrative: Weight 100 kg BMI 35.6 Const: Other: Acutely ill-appearing, morbidly obese, appears stated age, deconditioning HENMT: Other: Oral exam limited due to BiPAP, fair dentition, head is normocephalic atraumatic Eyes: Other: Pupils are equal and reactive with evidence of bilateral cataract lens replacements, mild conjunctival pallor, no scleral icterus Neck: Other: Large neck circumference, no significant JVD but patient is sitting completely upright in bed with the head of the bed at 45? Resp: Other: Coarse crackles at bilateral bases, mild tachypnea, accessory muscle use Cardio: Other: Regular rate, regular rhythm, 2+ bilateral radial pedal pulses GI: Other: Obese, nontender, positive bowel sounds, soft, unable to assess for organomegaly due to patient positioning : Other: Incontinent of urine Skin: Other: Relatively large wound to the distal left lateral darling consistent with venous stasis ulcer with overlying cream no obvious evidence of infection at this time, the bandage was dated 04/13/2023 but serous fluid had already soaked through the bandage and the surrounding Kerlix Neuro: Other: Patient is pleasantly confused in oriented only to person, she will answer specific questions but for the most part is not oriented, she has no obvious
[2023-04-17] VITALS (22 sets, daily range): BP systolic 121–146; BP diastolic 63–74; PULSE 68–90; RESP 18–24; TEMP 35.9–36.8; O2SAT 90–100
[2023-04-17] MEDS: ALBUTEROL SULFATE NEB 2.5 MG/3 ML INH INHALATION ×4 (01:38→20:23)
[2023-04-17] MEDS: methylPREDNISolone SOD SUCC 125 MG VIAL 80 MG IV PUSH (03:40)
[2023-04-17 06:32] LABS: Anion Gap 5 mmol/L (8-16); Blood Urea Nitrogen 44 mg/dL (7-17); Calcium 8.4 mg/dL (8.4-10.2); Carbon Dioxide 30 mmol/L (22-30); Chloride 104 mmol/L (98-107); Estimated CRCL calculation 30 ml/min; Estimated Glomerular Filt Rate 33; Glucose 155 mg/dL (65-110); Sodium 139 mmol/L (137-145)
[2023-04-17] MEDS: polyethylene glycoL 3350 17 GM POWD.PACK PO (08:15)
[2023-04-17] MEDS: SILVERGEL (ELTA) 45 ML 1 APPLIC TOPICAL (08:16)
[2023-04-17] MEDS: FUROSEMIDE 40 MG TABLET PO (08:16)
[2023-04-17] MEDS: HYDROCORTISONE 2.5% CREAM 30 GM TUBE 1 APPLIC TOPICAL (08:17)
[2023-04-17] MEDS: POTASSIUM CHLORIDE 20 MEQ ER TABLET 40 MEQ PO (08:17)
[2023-04-17] MEDS: EUCERIN CREAM 120 GM JAR 1 APPLIC TOPICAL (08:17)
[2023-04-17] MEDS: CYANOCOBALAMIN 1,000 MCG TABLET 1000 MCG PO (08:18)
[2023-04-17] MEDS: ASPIRIN 81 MG CHEWABLE TABLET PO (08:18)
[2023-04-17] MEDS: DOXYCYCLINE HYCLATE 100 MG TABLET PO ×2 (08:18→20:50)
[2023-04-17] MEDS: APIXABAN 5 MG TABLET PO ×2 (08:18→20:50)
[2023-04-17] MEDS: CHOLECALCIFEROL 1,000 UNITS TABLET 1000 UNITS PO (08:18)
[2023-04-17] MEDS: AMIODARONE HCL 100 MG TABLET PO (08:18)
--- NOTE | 2023-04-17 10:38 | PM.IMPN ---
Progress Note: A&P Assessment and Plan (1) Acute exacerbation of CHF (congestive heart failure): Qualifiers: Heart failure type: diastolic Qualified Code(s): I50.33 - Acute on chronic diastolic (congestive) heart failure Code(s): I50.9 - Heart failure, unspecified Status: Acute Assessment and Plan: Improving. Continue lasix dose to once a day oral (2) Acute respiratory failure with hypoxia: Code(s): J96.01 - Acute respiratory failure with hypoxia Status: Acute Assessment and Plan: Patient is wheezing. Received IV Solu-Medrol this morning. Start p.o. prednisone from tomorrow. continue BiPAP. Oxygen p.r.n. when taking a break from BiPAP. Continue nebulizer (3) Chronic kidney disease, stage 3b: Code(s): N18.32 - Chronic kidney disease, stage 3b Status: Acute Assessment and Plan: Renal function study was most likely from diuresis. Decrease Lasix dose. Monitor BMP (4) Elevated troponin: Code(s): R77.8 - Other specified abnormalities of plasma proteins Status: Acute Assessment and Plan: Likely demand ischemia (5) Anticoagulant long-term use: Code(s): Z79.01 - [facility] (current) use of anticoagulants Status: Acute Assessment and Plan: Patient does have a history of AFib and prior DVTs. She has IVC filter in place. She is on chronic Eliquis. Will continue Eliquis. Patient is currently in sinus rhythm. (6) Venous stasis ulcer of ankle limited to breakdown of skin without varicose veins: Qualifiers: Laterality: left Qualified Code(s): I87.2 - Venous insufficiency (chronic) (peripheral); L97.321 - Non-pressure chronic ulcer of left ankle limited to breakdown of skin Code(s): I87.2 - Venous insufficiency (chronic) (peripheral); L97.301 - Non-pressure chronic ulcer of unspecified ankle limited to breakdown of skin Status: Acute Assessment and Plan: on doxycycline p.o. b.i.d. for bilateral lower extremity cellulitis (7) Dementia: Qualifiers: Dementia type: unspecified type Dementia severity: severe Dementia behavioral or psychological symptom: with mood disturbance Qualified Code(s): F03.C3 - Unspecified dementia, severe, with mood disturbance Code(s): F03.90 - Unspecified dementia, unspecified severity, without behavioral disturbance, psychotic disturbance, mood disturbance, and anxiety Status: Acute Subjective Date/time seen: 04/17/23 10:38 Interval history: Patient reports shortness of breath and wheezing. No other complaint Review of Systems Review of Systems: Unobtainable due to the patient's dementia. Patient is alert oriented only to self Exam Const: Other: Acutely ill-appearing, morbidly obese, appears stated age, deconditioning HENMT: Other: Oral exam limited due to BiPAP, fair dentition, head is normocephalic atraumatic Eyes: Other: Pupils are equal and reactive with evidence of bilateral cataract lens replacements, mild conjunctival pallor, no scleral icterus Neck: Other: Large neck circumference, no significant JVD but patient is sitting completely upright in bed with the head of the bed at 45? Resp: Other: Bilateral wheezing Cardio: Other: Regular rate, regular rhythm, 2+ bilateral radial pedal pulses GI: Other: Obese, nontender, positive bowel sounds, soft, unable to assess for organomegaly due to patient positioning : Other: Incontinent of urine Skin: Other: Relatively large wound to the distal left lateral darling consistent with venous stasis ulcer with overlying cream no obvious evidence of infection at this time, the bandage was dated 04/13/2023 but serous fluid had already soaked through the bandage and the surrounding Kerlix Neuro: Other: Patient is pleasantly confused in oriented only to person, she will answer specific questions but for the most part is not
[2023-04-17] MEDS: FERROUS SULFATE 325 MG TABLET DR PO (11:33)
[2023-04-17] MEDS: MAGNESIUM 27 MG TABLET (500 MG MAG GLUCONATE) PO (11:33)
[2023-04-17] MEDS: MULTIVITAMINS THERAPEUTIC TAB (*BKC) 1 TABLET PO (11:33)
[2023-04-17] MEDS: ACETAMINOPHEN 325 MG TABLET 650 MG PO (17:14)
[2023-04-18] VITALS (11 sets, daily range): BP systolic 149–152; BP diastolic 68–89; PULSE 72–80; RESP 18–20; TEMP 36.4; O2SAT 95–96
--- NOTE | 2023-04-18 01:56 | PCRCNOTE ---
Pt refused to wear BIPAP throughout night when asked by RT and by RN. Pt on room air sats 97% in no distress
[2023-04-18] MEDS: ALBUTEROL SULFATE NEB 2.5 MG/3 ML INH INHALATION ×3 (01:59→13:58)
[2023-04-18] MEDS: polyethylene glycoL 3350 17 GM POWD.PACK PO (08:41)
[2023-04-18] MEDS: FUROSEMIDE 40 MG TABLET PO (08:42)
[2023-04-18] MEDS: AMIODARONE HCL 100 MG TABLET PO (08:42)
[2023-04-18] MEDS: POTASSIUM CHLORIDE 20 MEQ ER TABLET 40 MEQ PO (08:42)
[2023-04-18] MEDS: CYANOCOBALAMIN 1,000 MCG TABLET 1000 MCG PO (08:42)
[2023-04-18] MEDS: APIXABAN 5 MG TABLET PO (08:42)
[2023-04-18] MEDS: ASPIRIN 81 MG CHEWABLE TABLET PO (08:42)
[2023-04-18] MEDS: predniSONE 20 MG TABLET 40 MG PO (08:43)
[2023-04-18] MEDS: SILVERGEL (ELTA) 45 ML 1 APPLIC TOPICAL (08:43)
[2023-04-18] MEDS: DOXYCYCLINE HYCLATE 100 MG TABLET PO (08:43)
[2023-04-18] MEDS: CHOLECALCIFEROL 1,000 UNITS TABLET 1000 UNITS PO (08:43)
--- NOTE | 2023-04-18 10:51 | PM.DS ---
DS: Admitting Diagnosis Discharge Date 04/18/23 Admitting Diagnosis Acute hypoxic respiratory failure DS: Discharge Diagnosis Discharge Diagnosis (1) Acute respiratory failure with hypoxia: Code(s): J96.01 - Acute respiratory failure with hypoxia Status: Acute (2) Dementia: Qualifiers: Dementia type: unspecified type Dementia severity: severe Dementia behavioral or psychological symptom: with mood disturbance Qualified Code(s): F03.C3 - Unspecified dementia, severe, with mood disturbance Code(s): F03.90 - Unspecified dementia, unspecified severity, without behavioral disturbance, psychotic disturbance, mood disturbance, and anxiety Status: Acute (3) Chronic kidney disease, stage 3b: Code(s): N18.32 - Chronic kidney disease, stage 3b Status: Acute (4) Acute exacerbation of CHF (congestive heart failure): Qualifiers: Heart failure type: diastolic Qualified Code(s): I50.33 - Acute on chronic diastolic (congestive) heart failure Code(s): I50.9 - Heart failure, unspecified Status: Acute (5) COPD (chronic obstructive pulmonary disease): Code(s): J44.9 - Chronic obstructive pulmonary disease, unspecified Status: Inactive DS: Summary Hospital Course Hospital Course: 87-year-old female with a past medical history of atrial fibrillation, CHF and dementia who presented to the ER from from [facility] due to shortness of breath.? EMS administered DuoNeb and Solu-Medrol as well as 2 g of magnesium sulfate and 0.5 mg of IM epinephrine in the field.? The patient was placed on CPAP due to work of breathing in the field.? On arrival to the ER the patient was placed on BiPAP with settings of 10/5 with a rate of 12 and her FiO2 was weaned down to 35% by time of my evaluation.? Patient had improvement in her respiratory status with BiPAP.? On exam patient was noted to have edema of the lower extremities.? She had some crackles at the bases.? Patient was started on IV Lasix to which he responded well. Lasix was then changed to oral. Patient had some wheezing so she was given Solu-Medrol IV initially and then put on p.o. prednisone along with doxycycline for COPD exacerbation. She is doing fine with combination of Lasix, steroids and being on BiPAP. Patient to continue using BiPAP at the snf whenever she is sleeping and even during the daytime with some breaks in between. Time Spent with Patient Time attestation: Total time spent providing and/or coordinating discharge services: DS: Data Additional Comments Additional comments: Continue using BiPAP at snf with settings of 06/15 Discharge Plan Discharge Discharging Clinician: Khris Dhaliwal Anticipated Discharge Date/Time: 04/18/23 10:48 Patient Disposition: SNF Activity: no preference Diet: heart healthy Patient Instructions: Apixaban (By mouth), Heart Failure (DC) Stand Alone Forms: General Discharge Information Follow-up/Referrals: Clarisse,Suzanna Franco MD [Primary Care Provider] - Discharge Medications: New potassium chloride [K-Tab] 20 mEq Tablet Extended Release 40 meq PO DAILY@0800 Qty: 30 0RF prednisone 20 mg Tablet 40 mg PO DAILY@0800 Qty: 3 0RF doxycycline hyclate 100 mg Tablet 100 mg PO Q12HR Qty: 5 0RF furosemide 40 mg Tablet 40 mg PO DAILY Qty: 30 0RF Continued amiodarone 100 mg tablet 100 mg PO DAILY ipratropium-albuterol 3 ml inhalation QID PRN (Reason: Shortness Of Breath Or Wheezing) multivitamin Tablet 1 tablet PO DAILY silver sulfadiazine 1 % Cream 1 applic TOPICAL DAILY ammonium lactate 12 % Lotion 1 applic TOPICAL DAILY Rx Instructions: bilateral lower extremities polyethylene glycol 3350 [Miralax] 17 gram Powder In Packet 17 g PO DAILY hydrocortisone 2.5 % Cream 1 applic TOPICAL BID PRN (Reason: Itching) Rx Instructions: BLE immanuelu
[2023-04-18] MEDS: MULTIVITAMINS THERAPEUTIC TAB (*BKC) 1 TABLET PO (11:57)
[2023-04-18] MEDS: MAGNESIUM 27 MG TABLET (500 MG MAG GLUCONATE) PO (11:57)
[2023-04-18] MEDS: FERROUS SULFATE 325 MG TABLET DR PO (11:57)
[2023-04-18 12:24] LABS: SARS-CoV-2 RNA PCR Negative (Negative)
--- NOTE | 2023-04-18 15:20 | PC.NURSE ---
Pt discharged back to [facility]. Pt dressing change done, and pt tolerated well. Pt had no IV access. Pt was A&O1-2. Pt tolerated transfer to EMS stretcher well. Pt denies pain and expresses no needs at this time. Pt was monitored for any changes in status while here. Report was called to [facility].
== END 2023-04-18 15:40 | DRG 291 ==
LOC: ANHED 02:38 → ANHIMU 03:32 → ANH3MEDSUR 04-15 13:59
PROVIDERS: Nurse Practitioner; Admitting Provider Internal Medicine; Emergency Provider Emergency Medicine; PCP Internal Medicine; Visit Provider Hospitalist
DX: I13.0 Hypertensive heart and chronic kidney disease with heart failure and stage 1 through stage 4 chronic kidney disease, or unspecified chronic kidney disease (principal); I50.33 Acute on chronic diastolic (congestive) heart failure; J96.01 Acute respiratory failure with hypoxia; J44.1 Chronic obstructive pulmonary disease with (acute) exacerbation; I24.8 Other forms of acute ischemic heart disease; Z68.41 Body mass index [BMI] 40.0-44.9, adult; N17.9 Acute kidney failure, unspecified; L97.321 Non-pressure chronic ulcer of left ankle limited to breakdown of skin; N18.32 Chronic kidney disease, stage 3b; Z20.822 Contact with and (suspected) exposure to COVID-19; F03.90 Unspecified dementia, unspecified severity, without behavioral disturbance, psychotic disturbance, mood disturbance, and anxiety; E66.01 Morbid (severe) obesity due to excess calories; I48.91 Unspecified atrial fibrillation; I87.2 Venous insufficiency (chronic) (peripheral); M19.011 Primary osteoarthritis, right shoulder; M19.021 Primary osteoarthritis, right elbow; Z96.651 Presence of right artificial knee joint; Z79.01 Long term (current) use of anticoagulants; Z86.718 Personal history of other venous thrombosis and embolism; Z90.710 Acquired absence of both cervix and uterus; Z90.722 Acquired absence of ovaries, bilateral
CPT/HCPCS: 36415; 36600; 71045; 80048; 80053; 81001; 82805; 83605; 83735; 83880; 84145; 84484; 85014; 85018; 85025; 85027; 85610; 85730; 87070; 87205; 87635; 93005; 94002; 94640; 96374; 99285; A9270; G0378; J1940; J2930; J7512

== ENCOUNTER 2023-04-19 03:10 | Emergency (ER) | payer OTHER, SELFPAY ==
[2023-04-19] VITALS (20 sets, daily range): BP systolic 122–160; BP diastolic 54–112; PULSE 66–87; RESP 19–30; TEMP 36.6–36.7; O2SAT 92–100
--- NOTE | ~2023-04-19 | XR_ITS ---
Clinical Indication: Cough AP and lateral views of the chest: Comparison: 04/15/2023 Findings: There is central congestive change and probable minimal central pulmonary edema.. Cardiome diastinal silhouette is within normal limits. Left shoulder arthroplasty noted. Impression: Central congestive change and probable minimal central pulmonary edema. Reviewed, dictated and finalized at [facility]. Impression: Central congestive change and probable minimal central pulmonary edema.
--- NOTE | 2023-04-19 03:15 | ECG_ITS ---
Measurements Intervals [place] Rate: 68 P: 84 SD: 163 QRS: 15 QRSD: 101 T: 29 QT: 424 QTc: 452 Interpretive Statements SINUS RHYTHM COMPARED TO ECG 04/14/2023 01:44:16 NO SIGNIFICANT CHANGES Electronically Signed On 04-19-2023 14:23:24 CDT by Vel Guzman M.D.
[2023-04-19 03:34] LABS: Hematocrit 30.9 % (37.0-47.0); Hemoglobin 9.2 g/dL (12.0-15.0); Immature Granulocyte Absolute 0.02 K/mm3 (0.00-0.031); Immature Granulocyte Percent A 0.3 % (0-0.5); Lymphocytes Absolute Auto 0.67 K/mm3 (0.9-3.2); Lymphocytes Percent Auto 10.6 % (18.3-44.2); Mean Corpuscular HGB Conc 29.8 g/dl (32-36); Mean Corpuscular Hemoglobin 28.8 pg (26-34); Mean Corpuscular Volume 96.9 fl (80-100); Mean Platelet Volume 9.8 fl (7.4-10.4); Monocytes Absolute Auto 0.6 K/mm3 (0.1-0.6); Monocytes Percent Auto 9.9 % (2.6-8.5); Neutrophils Percent Auto 79.2 % (45.5-73.1); Platelet Count Result 181 k/mm3 (150-375); Red Blood Count 3.19 M/mm3 (4.2-5.4); White Blood Count 6.4 K/mm3 (4.5-10.0)
[2023-04-19 03:46] LABS: Alanine Aminotransferase 25 U/L (6-35); Albumin Level 3.2 g/dL (3.5-5.1); Alkaline Phosphatase 53 U/L (38-126); Anion Gap 2 mmol/L (8-16); Aspartate Amino Transferase 26 U/L (14-36); Bilirubin,Total 0.6 mg/dL (0.2-1.3); Blood Urea Nitrogen 52 mg/dL (7-17); Calcium 8.4 mg/dL (8.4-10.2); Carbon Dioxide 33 mmol/L (22-30); Chloride 101 mmol/L (98-107); Estimated Glomerular Filt Rate 33; Glucose 124 mg/dL (65-110); Potassium 4.4 mmol/L (3.4-5.0); Sodium 136 mmol/L (137-145)
[2023-04-19] MEDS: predniSONE 20 MG TABLET 40 MG PO (04:06)
[2023-04-19] MEDS: ALBUTEROL SULFATE NEB 2.5 MG/3 ML INH 15 MG INHALATION (04:31)
[2023-04-19] MEDS: IPRATROPIUM BR 0.02% INH SOLN 0.5 MG/2.5 ML VIAL 1 MG INHALATION (04:32)
[2023-04-19] MEDS: FUROSEMIDE INJ 40 MG/4 ML VIAL IV PUSH (05:52)
--- NOTE | 2023-04-19 05:55 | ED.SOB ---
HPI - SOB/Dyspnea General Chief Complaint: Shortness of Breath/Dyspnea Stated Complaint: SOB Time Seen by Provider: 04/19/23 03:16 History of Present Illness HPI Narrative: Patient with history of CHF, COPD, presenting with dyspnea, patient has been admitted here for CHF exacerbation. Related Data Home Medications Medication Instructions Recorded Confirmed amiodarone 100 mg tablet 100 mg PO DAILY 02/08/23 04/14/23 ipratropium-albuterol 3 ml inhalation QID PRN Shortness 02/08/23 04/14/23 Of Breath Or Wheezing acetaminophen 325 mg capsule 650 mg PO Q6H PRN Pain 04/14/23 04/14/23 ammonium lactate 12 % lotion 1 applic topical DAILY 04/14/23 04/14/23 apixaban 5 mg tablet (Eliquis) 5 mg PO Q12H 04/14/23 04/14/23 aspirin 81 mg capsule 81 mg PO DAILY 04/14/23 04/14/23 bisacodyl 5 mg tablet 10 mg PO HS PRN Constipation 04/14/23 04/14/23 cholecalciferol (vitamin D3) 25 25 mcg PO DAILY 04/14/23 04/14/23 mcg (1,000 unit) capsule (Vitamin D3) ferrous sulfate 325 mg (65 mg 325 mg PO DAILY 04/14/23 04/14/23 iron) tablet,delayed release hydrocortisone 2.5 % topical cream 1 applic topical BID PRN Itching 04/14/23 04/14/23 lanolin alcohols-mineral 1 applic topical DAILY 04/14/23 04/14/23 oil-w.petrolatum-ceresin topical cream (Minerin Creme topical) magnesium 250 mg tablet 500 mg PO DAILY 04/14/23 04/14/23 multivitamin 1 tablet PO DAILY 04/14/23 04/14/23 polyethylene glycol 3350 17 gram 17 g PO DAILY 04/14/23 04/14/23 oral powder packet (Miralax) silver sulfadiazine 1 % topical 1 applic topical DAILY 04/14/23 04/14/23 cream Allergies Allergy/AdvReac Type Severity Reaction Status Date / Time codeine Allergy Other Verified 04/14/23 02:13 Review of Systems Review of Systems: CONST: No fever. HEENT: No sore throat C/V: No chest pain RESP: Short of breath GI: Denies abdominal pain : No dysuria. M/S: No joint pain. SKIN: No rash. NEURO: [No headache or focal numbness or weakness] PSYCH: [No depression] [facility] Past Medical History Medical History (Updated 04/19/23 @ 05:54 by Monet Christianson MD) Arthritis of elbow, right, degenerative CHF (congestive heart failure) Echocardiogram 02/10/2023: EF 50-55%, septal wall motion abnormality related to bundle-branch block, mild left atrial enlargement, mild tricuspid regurgitation, grade 1 diastolic dysfunction Chronic kidney disease, stage 3b Chronic venous stasis dermatitis of both lower extremities Closed fracture of right proximal humerus (02/2023) Degenerative arthritis of right shoulder region Dementia Depression DVT (deep venous thrombosis) 10/19/22 Left lower extremity venous Doppler showed DVT involving left femoral vein. Previously on Eliquis with dose increased. Essential hypertension History of atrial fibrillation Hyperlipidemia Insomnia Morbid obesity Vitamin D deficiency Surgical History Surgical History (Updated 04/14/23 @ 07:30 by Lucero Panchal DO) History of total hysterectomy with bilateral salpingo-oophorectomy (BSO) History of total right knee replacement S/P insertion of IVC (inferior vena caval) filter Family History Family History (Updated 04/14/23 @ 07:22 by Lucero Panchal DO) Other Unknown family medical history Social History Social History (Updated 04/14/23 @ 07:23 by Lucero Panchal DO) Social History: The patient lives at [facility]. She states that she has a couple of children. She smoked briefly as a teenager. She denies any significant alcohol use. She thinks she had a couple of kids. Patient is not best historian is only oriented to person at the time of my evaluation. Code status: DNR/DNI (per [facility] report) Smoking status: Never smoker Alcohol intake: never Substance use: never Substance use type: does not use Lack of Transportation: No Lack of Food: Never True Current Housing: Decline to Answer Concerned About Future Housing: Decline to Answer Diffi
[2023-04-19 07:05] LABS: NT Pro B Type Natriuretic Pept 22000 pg/mL (19.9-100)
== END 2023-04-19 06:49 ==
PROVIDERS: Emergency Provider Emergency Medicine; PCP Internal Medicine
DX: R06.00 Dyspnea, unspecified (principal); J44.9 Chronic obstructive pulmonary disease, unspecified; F03.90 Unspecified dementia, unspecified severity, without behavioral disturbance, psychotic disturbance, mood disturbance, and anxiety; I13.0 Hypertensive heart and chronic kidney disease with heart failure and stage 1 through stage 4 chronic kidney disease, or unspecified chronic kidney disease; N18.32 Chronic kidney disease, stage 3b; I50.9 Heart failure, unspecified; I87.8 Other specified disorders of veins; I48.91 Unspecified atrial fibrillation; E78.5 Hyperlipidemia, unspecified; E55.9 Vitamin D deficiency, unspecified; E66.01 Morbid (severe) obesity due to excess calories; M19.021 Primary osteoarthritis, right elbow; M19.011 Primary osteoarthritis, right shoulder; Z96.651 Presence of right artificial knee joint; Z86.718 Personal history of other venous thrombosis and embolism; Z90.710 Acquired absence of both cervix and uterus; Z90.722 Acquired absence of ovaries, bilateral; Z90.79 Acquired absence of other genital organ(s); Z79.82 Long term (current) use of aspirin; Z79.01 Long term (current) use of anticoagulants
CPT/HCPCS: 36415; 71046; 80053; 83880; 85025; 93005; 94640; 96374; 99284; J1940; J7512

== ENCOUNTER 2023-06-28 00:15 | Emergency (ER) | payer OTHER, SELFPAY ==
[2023-06-28] VITALS (13 sets, daily range): BP systolic 109–158; BP diastolic 35–94; PULSE 84–113; RESP 16–24; TEMP 36.9; O2SAT 90–100
--- NOTE | ~2023-06-28 | XR_ITS ---
Right elbow Technique: AP, oblique, and lateral views were obtained. Clinical History: Pain COMPARISON: 02/13/2023 Findings: There is an old, healed fracture deformity of the distal humeral shaft. Questionable nondis placed fracture of the radial head. There is severe elbow joint osteoarthritis. There is probable esther nt effusion with displacement of the fat pads. Impression: Suspected nondisplaced acute fracture the radial head/neck. Severe elbow joint osteoarthritis with associated elbow joint effusion. Old, healed fracture deformity of the distal humeral shaft. Reviewed, dictated and finalized at location . Impression: Suspected nondisplaced acute fracture the radial head/neck. Severe elbow joint osteoarthritis with associated elbow joint effusion. Old, healed fracture deformity of the distal humeral shaft.
--- NOTE | ~2023-06-28 | CT_ITS ---
Noncontrast CT scan of the cervical spine Technique: Multiple contiguous axial [address] images of the cervical spine were obtained and rec onstructed in 2D sagittal and coronal planes on the acquisition scanner. Dose reduction technique was used on this scan by utilizing automated exposure control, adjustment of the mA and/or kV according to patient size. The dose-length product (DLP) was 598.98 mGy-cm. Clinical History: Pain Findings: No acute fracture identified. There is reversal normal cervical lordosis. There is 5 mm ant erolisthesis of C3 over C4. There is 4 mm anterolisthesis of C4 over C5. There is severe degenerative disc narrowing at C5-C6 and C6-C7. There is mild to moderate degenerative disc narrowing at the ishan ining cervical levels. There is right facet arthropathy at C2-C3, possible minimal right neural foraminal narrowing. There i s probable bilateral neural foraminal narrowing at C3-C4 related to bilateral facet arthropathy. Ther e is probable mild left neural foraminal narrowing with facet arthropathy at C4-C5. There is bilatera l neural foraminal narrowing with facet arthropathy and disc osteophyte complex at C5-C6. Possible mi nimal canal stenosis at this level. There is mild disc ossify complex at C6-C7 with possible minimal bilateral neural foraminal narrowing. No prevertebral soft tissue swelling. Probable cystic right thyroid lobe nodule noted. Impression: No acute fracture. 5 mm anterolisthesis of C3 over C4. 4 mm anterolisthesis of C4 over C5. Moderate degenerative spondylosis, as above. Reviewed, dictated and finalized at [facility]. Impression: No acute fracture. 5 mm anterolisthesis of C3 over C4. 4 mm anterolisthesis of C4 over C5. Moderate degenerative spondylosis, as above.
--- NOTE | ~2023-06-28 | XR_ITS ---
Clinical Indication: Altered mental status AP and lateral views of the chest: Comparison: 04/19/2023 Findings: The lungs are clear, without evidence of focal consolidation or pleural effusion. Cardiome diastinal silhouette is stable. Left shoulder arthroplasty noted. Impression: Clear lungs. Reviewed, dictated and finalized at location . Impression: Clear lungs.
--- NOTE | ~2023-06-28 | CT_ITS ---
CT head without contrast Indication: Status post fall Technique: Serial scans were obtained through the brain without the administration of contrast. Dose reduction technique was used on this scan by utilizing automated exposure control and iterative recon struction technique. The dose-length product (DLP) was 756.67 mGy-cm. Findings: There is no evidence of intracranial hemorrhage, mass lesion, or acute infarct. The ventri cles and subarachnoid spaces are dilated, consistent with mild to moderate atrophy. There is no evid ence of edema, mass effect or midline shift. The visualized paranasal sinuses and mastoid air cells are clear. Impression: No intracranial hemorrhage, mass, or acute infarct. Generalized atrophy, as above. Reviewed, dictated and finalized at location . Impression: No intracranial hemorrhage, mass, or acute infarct. Generalized atrophy, as above.
--- NOTE | ~2023-06-28 | CT_ITS ---
Non-contrast CT scan of the Abdomen and Pelvis Clinical indication: Abdominal pain Technique: 2.5 mm axial scans were obtained through the abdomen and pelvis without intravenous or or al contrast. Dose reduction technique was used on this scan by utilizing automated exposure control a nd iterative reconstruction technique. The dose-length product (DLP) was 1368.10 mGy-cm. COMPARISON: 02/08/2023 Findings: Images through the lung bases reveal mild bibasilar atelectasis/scarring. There is no evidence of renal or ureteral calculi. The kidneys and the ureters are nondilated. Small hepatic cysts noted. The spleen, pancreas, gallbladder, and adrenals appear normal. There are a therosclerotic calcifications of the aorta. IVC filter present. There is no evidence of bowel obstruction. Images through the pelvis were performed. There is no evidence of ascites or lymphadenopathy. Urinary bladder unremarkable. Patient is post hysterectomy. No adnexal mass seen. Fracture of the right infe rior pubic ramus noted. Impression: Fracture of the right inferior pubic ramus. No other significant abnormality seen. Reviewed, dictated and finalized at [facility]. Impression: Fracture of the right inferior pubic ramus. No other significant abnormality seen.
--- NOTE | 2023-06-28 01:06 | ECG_ITS ---
Measurements Intervals [place] Rate: 78 P: 54 [place]: 170 QRS: 0 QRSD: 102 T: 22 QT: 386 QTc: 441 Interpretive Statements SINUS RHYTHM BASELINE ARTIFACT NORMAL ECG COMPARED TO ECG 04/19/2023 03:21:36 NO SIGNIFICANT CHANGES Electronically Signed On 06-28-2023 9:05:13 CDT by Yasmani Poole M.D.
[2023-06-28] MEDS: MORPHINE SULFATE (*CRX) 4 MG/ML INJ IV PUSH (02:58)
[2023-06-28] MEDS: SODIUM CHLORIDE 0.9% IV 1,000 ML 999 ML IV CONT (02:58)
[2023-06-28 03:05] LABS: Basophils Percent Auto 0.3 % (0.2-1.2); Eosinophils Percent Auto 0.3 % (0-4.4); Hematocrit 33.8 % (37.0-47.0); Hemoglobin 10.3 g/dL (12.0-15.0); Immature Granulocyte Absolute 0.08 K/mm3 (0.00-0.031); Immature Granulocyte Percent A 0.8 % (0-0.5); Lymphocytes Percent Auto 8.5 % (18.3-44.2); Mean Corpuscular HGB Conc 30.5 g/dl (32-36); Mean Corpuscular Hemoglobin 28.8 pg (26-34); Mean Corpuscular Volume 94.4 fl (80-100); Mean Platelet Volume 9.8 fl (7.4-10.4); Monocytes Absolute Auto 0.7 K/mm3 (0.1-0.6); Monocytes Percent Auto 6.2 % (2.6-8.5); Neutrophils Absolute Auto 8.9 K/mm3 (1.3-6.7); Neutrophils Percent Auto 83.9 % (45.5-73.1); Platelet Count Result 174 k/mm3 (150-375); Red Blood Count 3.58 M/mm3 (4.2-5.4); Red Cell Distribution Width 16.4 % (11.5-14.5); White Blood Count 10.6 K/mm3 (4.5-10.0)
[2023-06-28 03:18] LABS: Alanine Aminotransferase 22 U/L (6-35); Albumin Level 3.9 g/dL (3.5-5.1); Alkaline Phosphatase 75 U/L (38-126); Anion Gap 7 mmol/L (8-16); Aspartate Amino Transferase 29 U/L (14-36); Bilirubin,Total 0.7 mg/dL (0.2-1.3); Blood Urea Nitrogen 52 mg/dL (7-17); Carbon Dioxide 27 mmol/L (22-30); Chloride 103 mmol/L (98-107); Estimated Glomerular Filt Rate 28; Glucose 95 mg/dL (65-110); Potassium 4.7 mmol/L (3.4-5.0); Sodium 137 mmol/L (137-145)
[2023-06-28 03:19] LABS: Lactic Acid Reflex 1.4 mmol/L (0.7-2.0)
[2023-06-28 03:29] LABS: Troponin I 0.032 ng/mL (0.000-0.034)
[2023-06-28 04:40] LABS: Appearance Urine Clear (Clear); Bacteria Urine 4+ /hpf; Bilirubin Urine Negative (Negative); Blood Urine Negative (Negative); Color Urine Yellow (Yellow); Glucose Urine UA Negative (Negative); Ketones Urine Negative (Negative); Leukocyte Esterase Ur 2+ LEU/UL (Negative); Nitrate Urine Positive (Negative); Protein Urine Negative (Negative); RBC Urine 0-2 /hpf (0-2); Specific Grav Ur 1.012 (1.001-1.035); Squamous Epithelial Cell Urine None seen /hpf (Few); Urobilinogen Urine 0.2 mg/dL (<2.0); WBC Urine 21-50 /hpf
[2023-06-28 04:49] LABS: Add Urine Microscopic? YES
[2023-06-28] MEDS: IPRATROPIUM BR 0.02% INH SOLN 0.5 MG/2.5 ML VIAL INHALATION (04:56)
[2023-06-28] MEDS: ALBUTEROL SULFATE NEB 2.5 MG/3 ML INH INHALATION ×3 (04:57→04:58)
[2023-06-28] MEDS: LACTATED RINGERS 1,000 ML 999 ML IV CONT (06:24)
--- NOTE | 2023-06-28 06:47 | ED.FALL ---
HPI - Fall General Chief Complaint: Fall Stated Complaint: FALL, HEAD & HIP PAIN Time Seen by Provider: 06/28/23 02:02 Source: old records reviewed (from skilled nursing) History of Present Illness HPI Narrative: By report, patient was noted to have fallen from skilled nursing staff. Was not walking with assistance. Per review of med list documentation from [place], patient on both ASA and Elliquis. Additional medications not included in med list below but on [place] documentation - citalopram 20mg once daily, cyanocobalamin/Vit B12 1000mcg daily, furosemide, KCl ER 20mEq 2 tablets daily, Santyl, spironolactone, acetaminophen q6 hrs PRN. Patient complaining of pain at R arm. She states she has chest pain off and on. Says she falls occasionally and has been weak/dizzy. In general, patient's history limited secondary to dementia. Related Data Home Medications Medication Instructions Recorded Confirmed amiodarone 100 mg tablet 100 mg PO DAILY 02/08/23 04/14/23 ipratropium-albuterol 3 ml inhalation QID PRN Shortness 02/08/23 04/14/23 Of Breath Or Wheezing acetaminophen 325 mg capsule 650 mg PO Q6H PRN Pain 04/14/23 04/14/23 ammonium lactate 12 % lotion 1 applic topical DAILY 04/14/23 04/14/23 apixaban 5 mg tablet (Eliquis) 5 mg PO Q12H 04/14/23 04/14/23 aspirin 81 mg capsule 81 mg PO DAILY 04/14/23 04/14/23 bisacodyl 5 mg tablet 10 mg PO HS PRN Constipation 04/14/23 04/14/23 cholecalciferol (vitamin D3) 25 25 mcg PO DAILY 04/14/23 04/14/23 mcg (1,000 unit) capsule (Vitamin D3) ferrous sulfate 325 mg (65 mg 325 mg PO DAILY 04/14/23 04/14/23 iron) tablet,delayed release hydrocortisone 2.5 % topical cream 1 applic topical BID PRN Itching 04/14/23 04/14/23 lanolin alcohols-mineral 1 applic topical DAILY 04/14/23 04/14/23 oil-w.petrolatum-ceresin topical cream (Minerin Creme topical) magnesium 250 mg tablet 500 mg PO DAILY 04/14/23 04/14/23 multivitamin 1 tablet PO DAILY 04/14/23 04/14/23 polyethylene glycol 3350 17 gram 17 g PO DAILY 04/14/23 04/14/23 oral powder packet (Miralax) silver sulfadiazine 1 % topical 1 applic topical DAILY 04/14/23 04/14/23 cream Allergies Allergy/AdvReac Type Severity Reaction Status Date / Time codeine Allergy Other Verified 06/28/23 00:28 [facility] Past Medical History Medical History (Updated 06/29/23 @ 21:00 by Nereida Mccarty MD) Acute respiratory failure with hypoxia Alzheimer's disease, unspecified Anemia, unspecified Arthritis of elbow, right, degenerative Atherosclerotic heart disease Cellulitis of left lower limb CHF (congestive heart failure) Echocardiogram 02/10/2023: EF 50-55%, septal wall motion abnormality related to bundle-branch block, mild left atrial enlargement, mild tricuspid regurgitation, grade 1 diastolic dysfunction Chronic atrial fibrillation, unspecified Chronic kidney disease, stage 3b Chronic systolic (congestive) heart failure Chronic venous stasis dermatitis of both lower extremities Closed fracture of right proximal humerus (02/2023) Constipation Degenerative arthritis of right shoulder region Dementia Depression DVT (deep venous thrombosis) 10/19/22 Left lower extremity venous Doppler showed DVT involving left femoral vein. Previously on Eliquis with dose increased. Essential hypertension Generalized osteoarthritis History of 2019 novel coronavirus disease (COVID-19) History of atrial fibrillation Hyperlipidemia Hypokalemia Insomnia Major depressive disorder, recurrent, moderate Obesity GRADY on CPAP Sepsis Unspecified hemorrhoids Vitamin D deficiency Surgical History Surgical History (Updated 04/14/23 @ 07:30 by Lucero Panchal DO) History of total hysterectomy with bilateral salpingo-oophorectomy (BSO) History of total right knee replacement S/P insertion of IVC (inferior vena caval) filter Family History Family History (Updated 04/14/23 @ 07:22 by Lucero Panchal DO) Other Unknown family medical history Social History Social Hist
== END 2023-06-28 10:21 ==
PROVIDERS: Emergency Provider Student in an Organized Health Care Education/Training Program; PCP Internal Medicine
DX: S32.591A Other specified fracture of right pubis, initial encounter for closed fracture (principal); S52.121A Displaced fracture of head of right radius, initial encounter for closed fracture; S50.311A Abrasion of right elbow, initial encounter; N39.0 Urinary tract infection, site not specified; R07.9 Chest pain, unspecified; G30.9 Alzheimer's disease, unspecified; F02.80 Dementia in other diseases classified elsewhere, unspecified severity, without behavioral disturbance, psychotic disturbance, mood disturbance, and anxiety; I13.0 Hypertensive heart and chronic kidney disease with heart failure and stage 1 through stage 4 chronic kidney disease, or unspecified chronic kidney disease; N18.32 Chronic kidney disease, stage 3b; I50.9 Heart failure, unspecified; Z79.899 Other long term (current) drug therapy; I48.91 Unspecified atrial fibrillation; W19.XXXA Unspecified fall, initial encounter; Y92.129 Unspecified place in nursing home as the place of occurrence of the external cause
CPT/HCPCS: 36415; 70450; 71046; 72125; 73070; 74176; 80053; 81001; 83605; 84484; 85025; 87077; 87086; 87186; 93005; 94640; 96361; 96365; 96375; 99284; A4565; J0696; J2270; J7030; J7120

== ENCOUNTER 2023-09-19 16:03 | Observation (INO) | payer OTHER, SELFPAY ==
[2023-09-19] VITALS (22 sets, daily range): BP systolic 131–148; BP diastolic 50–91; PULSE 77–94; RESP 17–24; TEMP 35.2–37.3; O2SAT 91–97
--- NOTE | ~2023-09-19 | NM_ITS ---
EXAMINATION: NM lung vent and perfusion DATE: 09/19/2023 20:48 INDICATION: Dyspnea, history of PE. TECHNIQUE: The patient breathed 21.2 mCi xenon-133 for ventilation images. 5.21 mCi Tc-99m MAA was ad ministered intravenously for perfusion images. Scintigraphic images of the chest were obtained. COMPARISON: X-ray chest, same date FINDINGS: The single breath ventilation image demonstrates normal wash-in and equilibrium. Ventilation washout images show no evidence of trapping. Perfusion images show a small unmatched perfusion defect in the superior segment of the left lower lobe and a moderate unmatched perfusion defect in the anterobasal segment of the right lower lobe. IMPRESSION: 1. Intermediate probability for pulmonary embolism. Reviewed, dictated and finalized at location K. NDS WORKER
--- NOTE | ~2023-09-19 | CT_ITS ---
EXAMINATION: CTA chest PE protocol DATE: 09/22/2023 09:04 INDICATION: Shortness of breath. History of deep venous thrombosis. TECHNIQUE: Computed tomography angiography (CTA) of the chest was performed with 100 mL Omnipaque-350 intravenous contrast timed to evaluate the pulmonary arteries. Coronal maximum intensity projection 3D-reconstructions were created by the technologist. Automated exposure control and iterative reconst ruction technique were employed. Exam dose: 735.52 mGy-cm total exam DLP. COMPARISON: 09/19/2023 pulmonary ventilation/perfusion scan (intermediate probability) 09/19/2023 portable AP chest 02/14/2023 CT chest 02/08/2023 CT chest abdomen FINDINGS: There is diagnostic contrast enhancement of the pulmonary arteries and no detected pulmonar y embolism. (Evaluation of some of the peripheral pulmonary arteries particularly in the lower lobes is limited due to motion.) No thoracic aortic aneurysm or dissection. Cardiomegaly. No pericardial or pleural effusion. No hilar or mediastinal mass lesion or lymphadenopathy. Normal morphology of the adrenal glands. Bilateral lower lobe predominantly dependent basilar atelectasis. Approximately 2.2 x 3.5 cm chronic hypoattenuating lesion of the right lobe of the thyroid gland with attenuation of approximately 17 Hounsfield units. This is not significantly changed since 02/08/2023. Left glenohumeral joint replacement. Severe right glenohumeral osteoarthritis. Prominent degenerative changes of the cervical and thoracic spine. IMPRESSION: No pulmonary emboli are detected Cardiomegaly Mild bilateral lower lobe predominantly dependent and basilar atelectasis Chronic 2.2 x 3.5 cm right thyroid hypoattenuating lesion Reviewed, dictated and finalized at Location A. Reviewed, dictated and finalized at location B. E MAKER
--- NOTE | ~2023-09-19 | US_ITS ---
EXAMINATION: US venous doppler [facility] DATE: 09/19/2023 18:17 INDICATION: swelling, hx DVT . TECHNIQUE: Grayscale images without and with compression and Doppler images of the bilateral lower ex tremity veins were obtained. COMPARISON: 10/2022. FINDINGS: Bilateral lower extremity pitting edema, redness, swelling, blisters and seeping sores which limited evaluation. Significant pain from transducer pressure. The right common femoral vein, profunda (deep) femoral vein, femoral vein, popliteal vein, peroneal v ein, posterior tibial veins, and greater saphenous vein are patent. The left posterior tibial and peroneal veins were not visualized. The left common femoral vein, profu nda (deep) femoral vein, femoral vein, popliteal vein, and greater saphenous vein are patent. IMPRESSION: Exam limited by edema and pain with transducer pressure. Left posterior tibial and peroneal veins not visualized. Otherwise patent bilateral lower extremity veins. Reviewed, dictated and finalized at location K. LE STROKE PREFORMER
--- NOTE | ~2023-09-19 | XR_ITS ---
XR chest 1V portable DATE: 09/19/2023 17:24 INDICATION: Shortness of breath, bilateral lower extremity edema TECHNIQUE: Portable upright AP chest on 09/29/2023 1721 hours COMPARISON: 06/28/2023 AP and lateral chest FINDINGS: Borderline heart size. Aortic calcification and unfolding. There is old pulmonary granuloma tous disease. Mild elevation right leaf of diaphragm. The lungs are clear of infiltrate or consolidation. No pleural effusion or pulmonary vascular congest ion or pneumothorax is detected. Diffuse osteopenia. Right glenohumeral osteoarthritis. Left glenohumeral arthroplasty. IMPRESSION: No active disease or significant change since 06/28/2023 Reviewed, dictated and finalized at location L. ODITIES REQUIREMENTS ANALYST
--- NOTE | 2023-09-19 16:38 | ECG_ITS ---
Measurements Intervals [place] Rate: 86 P: 75 [place]: 180 QRS: -3 QRSD: 110 T: 9 QT: 379 QTc: 455 Interpretive Statements SINUS RHYTHM VENTRICULAR PREMATURE COMPLEX BORDERLINE T WAVE ABNORMALITY- INFERIOR LEADS BASELINE ARTIFACT- I, II, III, AVR, AVL, AVF, V4-V6 BORDERLINE ECG COMPARED TO ECG 06/28/2023 01:40:44 NO SIGNIFICANT CHANGES Electronically Signed On 09-19-2023 19:24:36 [employer] by Mayito Gutiérrez D.O.
[2023-09-19 16:56] LABS: Basophils Percent Auto 0.5 % (0.2-1.2); Eosinophils Percent Auto 0.3 % (0-4.4); Hematocrit 34.5 % (37.0-47.0); Hemoglobin 10.4 g/dL (12.0-15.0); Immature Granulocyte Absolute 0.02 K/mm3 (0.00-0.031); Immature Granulocyte Percent A 0.3 % (0-0.5); Lymphocytes Absolute Auto 1.12 K/mm3 (0.9-3.2); Lymphocytes Percent Auto 16.8 % (18.3-44.2); Mean Corpuscular HGB Conc 30.1 g/dl (32-36); Mean Corpuscular Hemoglobin 29.9 pg (26-34); Mean Corpuscular Volume 99.1 fl (80-100); Mean Platelet Volume 9.6 fl (7.4-10.4); Monocytes Absolute Auto 0.5 K/mm3 (0.1-0.6); Monocytes Percent Auto 7.4 % (2.6-8.5); Neutrophils Percent Auto 74.7 % (45.5-73.1); Platelet Count Result 139 k/mm3 (150-375); Red Blood Count 3.48 M/mm3 (4.2-5.4); Red Cell Distribution Width 15.6 % (11.5-14.5); White Blood Count 6.7 K/mm3 (4.5-10.0)
[2023-09-19 17:06] LABS: Alanine Aminotransferase 16 U/L (6-35); Albumin Level 3.8 g/dL (3.5-5.1); Alkaline Phosphatase 105 U/L (38-126); Anion Gap 10 mmol/L (8-16); Aspartate Amino Transferase 29 U/L (14-36); Bilirubin,Total 0.5 mg/dL (0.2-1.3); Blood Urea Nitrogen 43 mg/dL (7-17); Calcium 8.8 mg/dL (8.4-10.2); Carbon Dioxide 24 mmol/L (22-30); Chloride 104 mmol/L (98-107); Estimated Glomerular Filt Rate 27; Glucose 140 mg/dL (65-110); Potassium 4.9 mmol/L (3.4-5.0); Sodium 138 mmol/L (137-145)
[2023-09-19 18:22] LABS: NT Pro B Type Natriuretic Pept 5080 pg/mL (19.9-100)
[2023-09-19 18:25] LABS: Influenza A QL RT-PCR Negative (Negative); Influenza B QL RT-PCR Negative (Negative); RSV RNA, RT-PCR Negative (Negative); SARS-CoV-2 RNA PCR Negative (Negative)
--- NOTE | 2023-09-19 18:25 | ED.SOB ---
HPI - SOB/Dyspnea General Chief Complaint: Shortness of Breath/Dyspnea <iAsha High PA-C - Last Filed: 09/19/23 22:15> Stated Complaint: SOB, wheezing from facility <GUME Levy Last Filed: 09/19/23 22:15> Time Seen by Provider: 09/19/23 17:14 <Aisha High PA-C - Last Filed: 09/19/23 22:15> Source: patient and EMS <Aisha High PA-C - Last Filed: 09/19/23 22:15> Mode of arrival: EMS <GUME Levy Last Filed: 09/19/23 22:15> Limitations: dementia <GUME Levy Last Filed: 09/19/23 22:15> History of Present Illness HPI Narrative: This is a 88 year old female that presents to the ER for shortness of breath and wheezing. Reportedly given nebulizer treatment and steroids with some improvement today. Patient reports some shortness of breath still. Reports swelling in her legs that is worse than usual. Denies fevers. <GUME Levy Last Filed: 09/19/23 22:15> Related Data Home Medications: Home Medications Medication Instructions Recorded Confirmed amiodarone 100 mg tablet 100 mg PO DAILY 02/08/23 09/19/23 ipratropium-albuterol 3 ml inhalation QID PRN Shortness 02/08/23 09/19/23 Of Breath Or Wheezing acetaminophen 325 mg capsule 650 mg PO Q6H PRN Pain (Scale 04/14/23 09/19/23 Score 1-5) ammonium lactate 12 % lotion 1 applic topical DAILY 04/14/23 09/19/23 apixaban 5 mg tablet (Eliquis) 2.5 mg PO Q12H 04/14/23 09/19/23 aspirin 81 mg capsule 81 mg PO DAILY 04/14/23 09/19/23 bisacodyl 5 mg tablet 10 mg PO DAILY Constipation 04/14/23 09/19/23 cholecalciferol (vitamin D3) 25 25 mcg PO DAILY 04/14/23 09/19/23 mcg (1,000 unit) capsule (Vitamin D3) ferrous sulfate 325 mg (65 mg 325 mg PO DAILY 04/14/23 09/19/23 iron) tablet,delayed release hydrocortisone 2.5 % topical cream 1 applic topical BID PRN Itching 04/14/23 09/19/23 lanolin alcohols-mineral 1 applic topical DAILY 04/14/23 09/19/23 oil-w.petrolatum-ceresin topical cream (Minerin Creme topical) magnesium 250 mg tablet 500 mg PO DAILY 04/14/23 09/19/23 multivitamin 1 tablet PO DAILY 04/14/23 09/19/23 polyethylene glycol 3350 17 gram 17 g PO DAILY 04/14/23 09/19/23 oral powder packet (Miralax) citalopram 20 mg tablet 20 mg PO DAILY 09/19/23 09/19/23 cyanocobalamin (vitamin B-12) 1,000 mcg PO DAILY 09/19/23 09/19/23 1,000 mcg capsule hydrocodone 7.5 mg-acetaminophen 1 tablet PO Q8H PRN Pain (Scale 09/19/23 09/19/23 325 mg tablet Score 6-10) spironolactone 25 mg tablet 25 mg PO DAILY 09/19/23 09/19/23 <Aisha High PA-C - Last Filed: 09/19/23 22:15> Allergies/Adverse Reactions: Allergies Allergy/AdvReac Type Severity Reaction Status Date / Time codeine Allergy Other Verified 09/19/23 17:33 <Aisha High PA-C - Last Filed: 09/19/23 22:15> Review of Systems Review of Systems: ROS unobtainable: Yes unobtainable due to medical condition <Aisha High PA-C - Last Filed: 09/19/23 22:15> [facility] Past Medical History Medical History: Medical History Acute respiratory failure with hypoxia Alzheimer's disease, unspecified Anemia, unspecified Arthritis of elbow, right, degenerative Atherosclerotic heart disease Cellulitis of left lower limb CHF (congestive heart failure) Echocardiogram 02/10/2023: EF 50-55%, septal wall motion abnormality related to bundle-branch block, mild left atrial enlargement, mild tricuspid regurgitation, grade 1 diastolic dysfunction Chronic atrial fibrillation, unspecified Chronic kidney disease, stage 3b Chronic systolic (congestive) heart failure Chronic venous stasis dermatitis of both lower extremities Closed fracture of right proximal humerus (02/2023) Constipation Degenerative arthritis of right shoulder region Dementia Depression DVT (deep venous thrombosis) 10/19/22 Left lower extremity venous Doppler showed DVT involving left femoral vein. Pr
[2023-09-19] MEDS: FUROSEMIDE INJ 40 MG/4 ML VIAL IV PUSH (18:32)
--- NOTE | 2023-09-19 20:25 | PC.NURSE ---
patient was taken to [facility] for scan. will call when scan is complete to take patient up to room.
--- NOTE | 2023-09-19 21:08 | ADMGEN ---
This patient, Darby Mcbride, was admitted to Medical Room 341-01. Patient/family oriented to hospital policies and general routines including ID bracelet, bed and alarms, visiting hours, pain management, procedures, bathroom and other care routines, personal items, smoking policy, room service/diet, and visiting hours. Information on how to activate the Rapid Response Team has been discussed. Patient/Family are encouraged to report perceived risks to care and to ask questions if they do not understand what they are told or what they should do.
[2023-09-20 07:43] VITALS: BP 146/89; PULSE 78; RESP 18; TEMP 36.2; O2SAT 97
--- NOTE | 2023-09-20 08:20 | PM.IMHP ---
H&P: HPI History of Present Illness Date/Time: 09/20/23 08:20 Chief Complaint: Shortness of breath and wheezing Narrative: This is an 88 year old female with a significant past medical history of acute respiratory failure with hypoxia, chronic systolic CHF, atrial fibrillation, Dementia, Depression, hypertension, hyperlipidemia, osteoarthritis, DVT, CKD stage 3b obesity, GRADY who presented to the hospital from [facility] with complaints of shortness of breath, wheezing, and leg swelling. Work up in the hospital includes Chest x-ray which was negative for any acute cardiopulmonary disease, venous dopplers that were negative for DVT, and pulmonary perfusion scan which shown intermediate probability for pulmonary embolism. EKG shown NSR with rate of 86. Labs include WBC 6.7, Hgb 10.4, Hct 34.5, Plt 139, BUN 43, Creatinine 1.80, BG 95-140, proBNP 5080. Respiratory panel negative for Influenza, COVID and RSV. UA was positive for nitrates, 2+ leukocytes, 21-50 urine WBC's, and 4+ bacteria. Patient was given 40 mg IV Lasix in the ED. On examination today patient is alert to voice and oriented x2, minimally interactive. She does not answer questions or follow commands. She does not appear to be in any distress. Review of Systems Review of Systems: ROS unobtainable: Yes unobtainable due to mental status PMFSH Past Medical History Medical History Acute respiratory failure with hypoxia Alzheimer's disease, unspecified Anemia, unspecified Arthritis of elbow, right, degenerative Atherosclerotic heart disease Cellulitis of left lower limb CHF (congestive heart failure) Echocardiogram 02/10/2023: EF 50-55%, septal wall motion abnormality related to bundle-branch block, mild left atrial enlargement, mild tricuspid regurgitation, grade 1 diastolic dysfunction Chronic atrial fibrillation, unspecified Chronic kidney disease, stage 3b Chronic systolic (congestive) heart failure Chronic venous stasis dermatitis of both lower extremities Closed fracture of right proximal humerus (02/2023) Constipation Degenerative arthritis of right shoulder region Dementia Depression DVT (deep venous thrombosis) 10/19/22 Left lower extremity venous Doppler showed DVT involving left femoral vein. Previously on Eliquis with dose increased. Essential hypertension Generalized osteoarthritis History of 2019 novel coronavirus disease (COVID-19) History of atrial fibrillation Hyperlipidemia Hypokalemia Insomnia Major depressive disorder, recurrent, moderate Obesity GRADY on CPAP Sepsis Unspecified hemorrhoids Vitamin D deficiency Surgical History Surgical History History of total hysterectomy with bilateral salpingo-oophorectomy (BSO) History of total right knee replacement S/P insertion of IVC (inferior vena caval) filter Family History Family History Other Unknown family medical history Social History Social History Social History: The patient lives at [facility] in [place]. She states that she has a couple of children. She smoked briefly as a teenager. She denies any significant alcohol use. She thinks she had a couple of kids. Patient is not best historian is only oriented to person at the time of my evaluation. Code status: DNR/DNI (per [facility] report) Smoking status: Never smoker Alcohol intake: never Substance use: never Substance use type: does not use Lack of Transportation: No Lack of Food: Never True Current Housing: Decline to Answer Concerned About Future Housing: Decline to Answer Difficulty Paying Gas/Electric Bills: Decline to Answer Difficulty Paying for Meds: Decline to Answer Currently Unemployed: Decline to Answer Education: Don't Know Difficulty w/ Childc
[2023-09-20 09:50] VITALS: PULSE 72
[2023-09-20] MEDS: SPIRONOLACTONE 25 MG TABLET PO (09:50)
[2023-09-20] MEDS: BISACODYL 5 MG TABLET EC 10 MG PO (09:50)
[2023-09-20] MEDS: APIXABAN 5 MG TABLET 10 MG PO ×2 (09:50→20:43)
[2023-09-20] MEDS: CYANOCOBALAMIN 1,000 MCG TABLET 1000 MCG PO (09:50)
[2023-09-20] MEDS: AMIODARONE HCL 100 MG TABLET PO (09:50)
[2023-09-20] MEDS: polyethylene glycoL 3350 17 GM POWD.PACK PO (09:50)
[2023-09-20] MEDS: MULTIVITAMINS THERAPEUTIC TAB (*BKC) 1 TABLET PO (09:51)
[2023-09-20] MEDS: ASPIRIN 81 MG ENTERIC TABLET PO (09:51)
[2023-09-20] MEDS: FERROUS SULFATE 325 MG TABLET DR PO (09:51)
[2023-09-20] MEDS: CITALOPRAM HYDROBROMIDE 20 MG TABLET PO (09:51)
[2023-09-20] MEDS: CHOLECALCIFEROL 1,000 UNITS TABLET 1000 UNITS PO (09:51)
[2023-09-20 11:43] VITALS: BP 157/56; PULSE 74; RESP 18; TEMP 36.2; O2SAT 96
[2023-09-20 14:40] VITALS: BP 148/54; PULSE 64; RESP 18; TEMP 36.2; O2SAT 97
[2023-09-20 21:11] VITALS: BP 133/49; PULSE 63; RESP 18; TEMP 36.6; O2SAT 96
[2023-09-21 05:59] LABS: Basophils Percent Auto 0.2 % (0.2-1.2); Eosinophils Percent Auto 0.4 % (0-4.4); Hemoglobin 9.5 g/dL (12.0-15.0); Immature Granulocyte Absolute 0.01 K/mm3 (0.00-0.031); Immature Granulocyte Percent A 0.2 % (0-0.5); Lymphocytes Absolute Auto 0.98 K/mm3 (0.9-3.2); Lymphocytes Percent Auto 19.4 % (18.3-44.2); Mean Corpuscular HGB Conc 30.6 g/dl (32-36); Mean Corpuscular Hemoglobin 29.9 pg (26-34); Mean Corpuscular Volume 97.5 fl (80-100); Mean Platelet Volume 9.9 fl (7.4-10.4); Monocytes Absolute Auto 0.8 K/mm3 (0.1-0.6); Monocytes Percent Auto 16.5 % (2.6-8.5); Neutrophils Absolute Auto 3.2 K/mm3 (1.3-6.7); Neutrophils Percent Auto 63.3 % (45.5-73.1); Platelet Count Result 124 k/mm3 (150-375); Red Blood Count 3.18 M/mm3 (4.2-5.4); Red Cell Distribution Width 15.7 % (11.5-14.5)
[2023-09-21 06:00] VITALS: BP 120/47; PULSE 66; RESP 16; TEMP 36.3; O2SAT 94
[2023-09-21 06:12] LABS: Magnesium 2.1 mg/dL (1.6-2.3)
[2023-09-21] MEDS: SPIRONOLACTONE 25 MG TABLET PO (08:43)
[2023-09-21] MEDS: ASPIRIN 81 MG ENTERIC TABLET PO (08:43)
[2023-09-21] MEDS: MULTIVITAMINS THERAPEUTIC TAB (*BKC) 1 TABLET PO (08:43)
[2023-09-21] MEDS: FERROUS SULFATE 325 MG TABLET DR PO (08:43)
[2023-09-21] MEDS: polyethylene glycoL 3350 17 GM POWD.PACK PO (08:43)
[2023-09-21] MEDS: APIXABAN 5 MG TABLET 10 MG PO ×2 (08:43→20:42)
[2023-09-21] MEDS: CITALOPRAM HYDROBROMIDE 20 MG TABLET PO (08:44)
[2023-09-21] MEDS: CHOLECALCIFEROL 1,000 UNITS TABLET 1000 UNITS PO (08:44)
[2023-09-21] MEDS: CYANOCOBALAMIN 1,000 MCG TABLET 1000 MCG PO (08:44)
[2023-09-21] MEDS: BISACODYL 5 MG TABLET EC 10 MG PO (08:44)
[2023-09-21 08:45] VITALS: PULSE 74
[2023-09-21] MEDS: AMIODARONE HCL 100 MG TABLET PO (08:45)
[2023-09-21] MEDS: FUROSEMIDE 40 MG TABLET PO (12:30)
[2023-09-21] MEDS: ACETAMINOPHEN 325 MG TABLET 650 MG PO (12:30)
[2023-09-21 14:00] VITALS: BP 117/52; PULSE 55; RESP 20; TEMP 37; O2SAT 95
[2023-09-21 15:26] LABS: Alanine Aminotransferase 15 U/L (6-35); Alkaline Phosphatase 78 U/L (38-126); Anion Gap 3 mmol/L (8-16); Aspartate Amino Transferase 25 U/L (14-36); Bilirubin,Total 0.4 mg/dL (0.2-1.3); Blood Urea Nitrogen 50 mg/dL (7-17); Carbon Dioxide 30 mmol/L (22-30); Chloride 104 mmol/L (98-107); Estimated CRCL calculation 27 ml/min; Estimated Glomerular Filt Rate 33; Glucose 93 mg/dL (65-110); Potassium 4.8 mmol/L (3.4-5.0); Sodium 137 mmol/L (137-145)
--- NOTE | 2023-09-21 15:54 | P.PNIM_ITS ---
Progress Note: A&P Assessment and Plan (1) CHF exacerbation: Qualifiers: Heart failure type: unspecified Qualified Code(s): I50.9 - Heart failure, unspecified Code(s): I50.9 - Heart failure, unspecified Status: Acute Assessment and Plan: 09/20/23: * CXR- no acute cardiopulmonary disease * pro BNP 5080 on arrival * Given 1 dose of 40mg Lasix in the ER. * Will start 40 mg IV lasix daily, hold the oral lasix for now. * Started on spironolactone. 09/21/23: * No change to current treatment (2) Pulmonary embolism: Code(s): I26.99 - Other pulmonary embolism without acute cor pulmonale Status: Acute Assessment and Plan: 09/20/23: * Pulmonary perfusion imaging shown intermediate probability for pulmonary embolism. Ther was a small perfusion defect in the superior segment of the left lower lobe and a moderated perfusion defect in the anterobasal segment of the right lower lobe. * Patient started on Eliquis 10 mg BID for 7 days and then will decrease to 5 mg BID. 09/21/23: * Wells criteria showing moderate risk for PE, V/Q scan showing intermediate probability for pulmonary embolism with 2 different areas of perfusion defects on the scan. * Will get a CTA of the chest today now that creatinine is back to baseline. * Will continue with Eliquis 10 mg b.i.d. for the 1st 7 days and then will decrease to 5 mg b.i.d., if CTA of the chest is negative for PE we will switch her back to her normal Eliquis of 2.5 mg b.i.d. (3) Chronic kidney disease, stage 3b: Code(s): N18.32 - Chronic kidney disease, stage 3b Status: Acute Assessment and Plan: 09/20/23: * BUN 43, creatinine 1.80, eGFR 27 * Baseline creatinine ranging 1.5-1.7, eGFR ranging 31-33 * Continue to trend labs 09/21/23: * BUN 50, creatinine 1.5, EGFR 33 * Patient is currently back to her baseline * Continue to trend labs (4) Essential hypertension: Code(s): I10 - Essential (primary) hypertension Status: Acute Assessment and Plan: 09/20/23: * B/P ranging 148/54-157/56 * Continue spironolactone 1/11/24: * Blood pressure ranging 117/52 to 120/47 * Continue with current treatment plan (5) History of atrial fibrillation: Code(s): Z86.79 - Personal history of other diseases of the circulatory system Status: Acute Assessment and Plan: 09/20/23: * Increased Eliquis to 10 mg BID due to the NM findings of PE. Will continue for 7 days followed by 5mg BID. * Patient was previously on 2.5 mg BID for history of A fib. * Amiodarone continued. 09/21/23: * Continue with current treatment plan Time Spent With Patient Time with patient: Greater than 35 minutes Subjective Date/time seen: 09/21/23 15:54 Interval history: 09/20/23: This is an 88 year old female with a significant past medical history of acute respiratory failure with hypoxia, chronic systolic CHF, atrial fibrillation, Dementia, Depression, hypertension, hyperlipidemia, osteoarthritis, DVT, CKD stage 3b obesity, GRADY who presented to the hospital from [facility] with complaints of shortness of breath, wheezing, and leg swelling. Work up in the hospital includes Chest x-ray which was negative for any acute cardiopulmonary disease, venous dopplers that were negative for DVT, and pulmonary perfusion scan which shown intermediate probability for pulmonary embolism. EKG shown NSR with rate of 86.? Labs include WBC 6.7, Hgb 10.4, Hct 34.5, Plt 139, BUN 43, Creatinine 1.80, BG 95-140, proBNP 5080. Respiratory panel negative for Influenza, COVID
--- NOTE | 2023-09-21 15:54 | PM.IMPN ---
Progress Note: A&P Assessment and Plan (1) CHF exacerbation: Qualifiers: Heart failure type: unspecified Qualified Code(s): I50.9 - Heart failure, unspecified Code(s): I50.9 - Heart failure, unspecified Status: Acute Assessment and Plan: 09/20/23: CXR- no acute cardiopulmonary disease pro BNP 5080 on arrival Given 1 dose of 40mg Lasix in the ER. Will start 40 mg IV lasix daily, hold the oral lasix for now. Started on spironolactone. 09/21/23: No change to current treatment (2) Pulmonary embolism: Code(s): I26.99 - Other pulmonary embolism without acute cor pulmonale Status: Acute Assessment and Plan: 09/20/23: Pulmonary perfusion imaging shown intermediate probability for pulmonary embolism. Ther was a small perfusion defect in the superior segment of the left lower lobe and a moderated perfusion defect in the anterobasal segment of the right lower lobe. Patient started on Eliquis 10 mg BID for 7 days and then will decrease to 5 mg BID. 09/21/23: Wells criteria showing moderate risk for PE, V/Q scan showing intermediate probability for pulmonary embolism with 2 different areas of perfusion defects on the scan. Will get a CTA of the chest today now that creatinine is back to baseline. Will continue with Eliquis 10 mg b.i.d. for the 1st 7 days and then will decrease to 5 mg b.i.d., if CTA of the chest is negative for PE we will switch her back to her normal Eliquis of 2.5 mg b.i.d. (3) Chronic kidney disease, stage 3b: Code(s): N18.32 - Chronic kidney disease, stage 3b Status: Acute Assessment and Plan: 09/20/23: BUN 43, creatinine 1.80, eGFR 27 Baseline creatinine ranging 1.5-1.7, eGFR ranging 31-33 Continue to trend labs 09/21/23: BUN 50, creatinine 1.5, EGFR 33 Patient is currently back to her baseline Continue to trend labs (4) Essential hypertension: Code(s): I10 - Essential (primary) hypertension Status: Acute Assessment and Plan: 09/20/23: B/P ranging 148/54-157/56 Continue spironolactone 09/21/23: Blood pressure ranging 117/52 to 120/47 Continue with current treatment plan (5) History of atrial fibrillation: Code(s): Z86.79 - Personal history of other diseases of the circulatory system Status: Acute Assessment and Plan: 09/20/23: Increased Eliquis to 10 mg BID due to the NM findings of PE. Will continue for 7 days followed by 5mg BID. Patient was previously on 2.5 mg BID for history of A fib. Amiodarone continued. 09/21/23: Continue with current treatment plan Time Spent With Patient Time with patient: Greater than 35 minutes Subjective Date/time seen: 09/21/23 15:54 Interval history: 09/20/23: This is an 88 year old female with a significant past medical history of acute respiratory failure with hypoxia, chronic systolic CHF, atrial fibrillation, Dementia, Depression, hypertension, hyperlipidemia, osteoarthritis, DVT, CKD stage 3b obesity, GRADY who presented to the hospital from [facility] with complaints of shortness of breath, wheezing, and leg swelling. Work up in the hospital includes Chest x-ray which was negative for any acute cardiopulmonary disease, venous dopplers that were negative for DVT, and pulmonary perfusion scan which shown intermediate probability for pulmonary embolism. EKG shown NSR with rate of 86.? Labs include WBC 6.7, Hgb 10.4, Hct 34.5, Plt 139, BUN 43, Creatinine 1.80, BG 95-140, proBNP 5080. Respiratory panel negative for Influenza, COVID and RSV. UA was positive for nitrates, 2+ leukocytes, 21-50 urine WBC's, and 4+ bacteria. Patient was given 40 mg IV Lasix in the ED. On examination today patient is alert to voice and oriented x2, minimally interactive. She does not answer questions or follow commands. She does not appear to be in any distress. 09/21/23: On examination today patient is alert and oriented x2, more interactive today. She denies a
[2023-09-21 19:26] VITALS: BP 129/52; PULSE 60; RESP 20; TEMP 36.6; O2SAT 97
[2023-09-22 04:45] VITALS: BP 131/56; PULSE 63; RESP 20; TEMP 36.6; O2SAT 95
[2023-09-22 05:39] LABS: Basophils Percent Auto 0.2 % (0.2-1.2); Eosinophils Percent Auto 0.7 % (0-4.4); Hemoglobin 9.8 g/dL (12.0-15.0); Immature Granulocyte Absolute 0.01 K/mm3 (0.00-0.031); Immature Granulocyte Percent A 0.2 % (0-0.5); Lymphocytes Absolute Auto 0.92 K/mm3 (0.9-3.2); Lymphocytes Percent Auto 20.5 % (18.3-44.2); Mean Corpuscular HGB Conc 30.6 g/dl (32-36); Mean Corpuscular Hemoglobin 29.9 pg (26-34); Mean Corpuscular Volume 97.6 fl (80-100); Mean Platelet Volume 9.7 fl (7.4-10.4); Monocytes Absolute Auto 0.7 K/mm3 (0.1-0.6); Neutrophils Absolute Auto 2.8 K/mm3 (1.3-6.7); Neutrophils Percent Auto 63.4 % (45.5-73.1); Platelet Count Result 113 k/mm3 (150-375); Red Blood Count 3.28 M/mm3 (4.2-5.4); Red Cell Distribution Width 15.6 % (11.5-14.5); White Blood Count 4.5 K/mm3 (4.5-10.0)
[2023-09-22 05:53] LABS: Alanine Aminotransferase 13 U/L (6-35); Albumin Level 2.9 g/dL (3.5-5.1); Alkaline Phosphatase 85 U/L (38-126); Anion Gap 5 mmol/L (8-16); Aspartate Amino Transferase 26 U/L (14-36); Bilirubin,Total 0.4 mg/dL (0.2-1.3); Blood Urea Nitrogen 52 mg/dL (7-17); Calcium 7.9 mg/dL (8.4-10.2); Carbon Dioxide 29 mmol/L (22-30); Chloride 101 mmol/L (98-107); Estimated CRCL calculation 29 ml/min; Estimated Glomerular Filt Rate 36; Glucose 80 mg/dL (65-110); Sodium 135 mmol/L (137-145)
[2023-09-22] MEDS: MULTIVITAMINS THERAPEUTIC TAB (*BKC) 1 TABLET PO (08:04)
[2023-09-22 08:05] VITALS: PULSE 62
[2023-09-22] MEDS: FUROSEMIDE 40 MG TABLET PO (08:05)
[2023-09-22] MEDS: CHOLECALCIFEROL 1,000 UNITS TABLET 1000 UNITS PO (08:05)
[2023-09-22] MEDS: APIXABAN 5 MG TABLET 10 MG PO (08:05)
[2023-09-22] MEDS: CITALOPRAM HYDROBROMIDE 20 MG TABLET PO (08:05)
[2023-09-22] MEDS: CYANOCOBALAMIN 1,000 MCG TABLET 1000 MCG PO (08:05)
[2023-09-22] MEDS: SPIRONOLACTONE 25 MG TABLET PO (08:05)
[2023-09-22] MEDS: FERROUS SULFATE 325 MG TABLET DR PO (08:05)
[2023-09-22] MEDS: AMIODARONE HCL 100 MG TABLET PO (08:05)
[2023-09-22] MEDS: ASPIRIN 81 MG ENTERIC TABLET PO (08:05)
--- NOTE | 2023-09-22 11:25 | PM.DS ---
DS: Admitting Diagnosis Discharge Date 09/22/23 Admitting Diagnosis CHF exacerbation Pulmonary embolism Chronic kidney disease, stage 3b essential hypertension history of afib DS: Discharge Diagnosis Discharge Diagnosis (1) CHF exacerbation: Qualifiers: Heart failure type: unspecified Qualified Code(s): I50.9 - Heart failure, unspecified Code(s): I50.9 - Heart failure, unspecified Status: Acute (2) Pulmonary embolism: Code(s): I26.99 - Other pulmonary embolism without acute cor pulmonale Status: Acute (3) Chronic kidney disease, stage 3b: Code(s): N18.32 - Chronic kidney disease, stage 3b Status: Acute (4) Essential hypertension: Code(s): I10 - Essential (primary) hypertension Status: Acute (5) History of atrial fibrillation: Code(s): Z86.79 - Personal history of other diseases of the circulatory system Status: Acute DS: Summary Hospital Course Reason for hospitalization: CHF exacerbation Hospital Course: This is an 88-year-old female who came in on 09/20/2023 from [facility] with complaints of shortness of breath, wheezing, and leg swelling. Workup in the hospital included a chest x-ray which was negative for any acute cardiopulmonary disease, venous Dopplers were obtained which was negative for DVT, pulmonary perfusion scan shown intermediate probability for pulmonary embolism however wells criteria was still a moderate risk. Creatinine was too high to send the patient for a CTA of the chest on the . She went and had a chest CTA done today which was negative for PE. She was given 1 dose of Lasix in the ED with improvement of her symptoms. On examination today patient is alert and oriented x2, lying in the bed. She states she is feeling much better. Labs today showing hemoglobin of 9.8, hematocrit 32.0, platelet count 113, sodium 135, BUN 52, creatinine 1.4, liver enzymes were normal. Patient is stable for discharge back to [facility]. Final diagnosis: CHF exacerbation Status at Discharge Cognitive/behavioral status at discharge: Alert and oriented x2 Functional status at discharge: wheelchair bound Overall status at discharge: patient is progressing back to baseline Time Spent with Patient Time attestation: Total time spent providing and/or coordinating discharge services: Time spent: Greater than 30 minutes Exam Narrative: General: In no acute distress, well nourished Head: atraumatic, no encephalopathy Eyes: EOMI, PERRLA, sclera clear ENT: moist mucous membranes, nasal passages clear Neck: supple, no JVD, no adenopathy, trachea midline Cardiac: Normal S1 and S2. No murmur, gallops or friction rubs, peripheral pulses intact. Respiratory: Lungs diminished in the bases, currently on room air. Gastrointestinal: soft, non-distended, non-tender, normoactive bowel sounds. : voiding without difficulty. Extremities: moves all extremities well,bilateral legs 3+ swelling, anasarca, good ROM, strength 5/5 Skin:scabbed areas noted on bilateral lower extremities, discoloration to bilateral lower extremities. Neuro: alert to voice, oriented x2 Psych: minimally interactive today, unable to assess due to somnolence. DS: Data Data Completed and Pending Completed studies during hospitalization: Chest x-ray Venous doppler study pulmonary perfusion imaging chest CTA Pending studies at discharge: none Labs on day of discharge: Labs from last 24 hours 09/22/23 09/21/23 05:23 14:56 WBC 4.5 RBC 3.28 L Hgb 9.8 L Hct 32.0 L MCV 97.6 MCH 29.9 MCHC 30.6 L RDW 15.6 H Plt Count 113 L MPV 9.7 Immature Gran % (Auto) 0.2 Neut % (Auto) 63.4 Lymph % (Auto) 20.5 Forest % (Auto) 15.0 H Eos % (Auto) 0.7 Baso % (Auto) 0.2 Lymph # (Auto) 0.92 [place] # (Auto) 0.7 H Eos # (Auto) 0.0 Baso # (Auto) 0.0 Abs Immat Gran (auto) 0.01 Absolute Neuts (auto) 2.8 Absolute Nucleated
[2023-09-22 14:00] VITALS: BP 133/58; PULSE 66; RESP 18; TEMP 36.8; O2SAT 95
[2023-09-22 15:35] LABS: SARS-CoV-2 RNA PCR Negative (Negative)
[2023-09-22] MEDS: IPRATROPIUM 0.5 MG/ALBUTEROL SULFATE 2.5 MG AMPUL.NEB 3 ML INHALATION (15:48)
[2023-09-22 15:49] VITALS: PULSE 60; RESP 20
[2023-09-22 15:57] VITALS: PULSE 62; RESP 20
[2023-09-22 16:01] VITALS: O2SAT 96
== END 2023-09-22 16:38 ==
LOC: ANHED 19:27 → ANH3MED 20:33 → ANH3MEDSUR 09-25 09:54
PROVIDERS: Emergency Medicine; Nurse Practitioner Acute Care; Admitting Provider Family Medicine; Emergency Provider Physician Assistant; PCP Hospitalist; Visit Provider Student in an Organized Health Care Education/Training Program
DX: I13.0 Hypertensive heart and chronic kidney disease with heart failure and stage 1 through stage 4 chronic kidney disease, or unspecified chronic kidney disease (principal); N18.32 Chronic kidney disease, stage 3b; I50.22 Chronic systolic (congestive) heart failure; D63.1 Anemia in chronic kidney disease; I26.99 Other pulmonary embolism without acute cor pulmonale; G30.9 Alzheimer's disease, unspecified; F02.80 Dementia in other diseases classified elsewhere, unspecified severity, without behavioral disturbance, psychotic disturbance, mood disturbance, and anxiety; I25.10 Atherosclerotic heart disease of native coronary artery without angina pectoris; I87.8 Other specified disorders of veins; Z20.822 Contact with and (suspected) exposure to COVID-19; F32.9 Major depressive disorder, single episode, unspecified; E55.9 Vitamin D deficiency, unspecified; G47.33 Obstructive sleep apnea (adult) (pediatric); Z99.89 Dependence on other enabling machines and devices; E53.8 Deficiency of other specified B group vitamins; E78.5 Hyperlipidemia, unspecified; Z66 Do not resuscitate; Z79.1 Long term (current) use of non-steroidal anti-inflammatories (NSAID); Z79.51 Long term (current) use of inhaled steroids; Z79.52 Long term (current) use of systemic steroids; Z79.01 Long term (current) use of anticoagulants; Z79.82 Long term (current) use of aspirin; Z79.891 Long term (current) use of opiate analgesic; Z86.79 Personal history of other diseases of the circulatory system; Z86.718 Personal history of other venous thrombosis and embolism
CPT/HCPCS: 36415; 71045; 71275; 78582; 80053; 83735; 83880; 85025; 87635; 87637; 93005; 93970; 94640; 96374; 99285; A9270; A9540; A9558; G0378; J1940; Q9967

== ENCOUNTER 2023-09-26 14:41 | Inpatient (IN) | payer OTHER, SELFPAY ==
[2023-09-26] VITALS (15 sets, daily range): BP systolic 104–138; BP diastolic 54–88; PULSE 78–94; RESP 21–36; TEMP 36.8; O2SAT 97–100; BMI 32.5; BMI 32.8
--- NOTE | ~2023-09-26 | US_ITS ---
EXAMINATION: US renal BI DATE: 09/28/2023 10:56 INDICATION: Decreased urinary output. TECHNIQUE: Multiple ultrasound grayscale images of the kidneys were obtained. COMPARISON: CT abdomen and pelvis 06/28/2023 FINDINGS: The right kidney measures 9.3 x 5.1 x 5.8 cm. The left kidney measures 9.6 x 5.2 x 4.8 cm. The kidney s demonstrate normal parenchymal echogenicity. There is cortical thinning of the kidneys. There is a 2.1 cm cyst in right kidney. There is no hydronephrosis. The bladder is normal. IMPRESSION: 1. Mild atrophy of the kidneys. No hydronephrosis. Reviewed, dictated and finalized at location E. CRUSHER
--- NOTE | ~2023-09-26 | CT_ITS ---
EXAMINATION: CT chest abdomen pelvis wo con DATE: 09/29/2023 10:30 INDICATION: Bacteremia of unknown source. TECHNIQUE: Computed tomography (CT) of the chest, abdomen, and pelvis was performed without intraveno us contrast. Automated exposure control and iterative reconstruction technique were employed. The dos e-length product was 2649.38 mGy-cm. COMPARISON: CT abdomen and pelvis dated 06/28/2023 and chest dated 09/22/2023 FINDINGS: CHEST CT: Streaky and linear atelectasis in the bilateral lower lungs. New 5 mm subpleural nodular opacity ling matthew which given the development over one week would be most consistent with either atelectasis or an infectious/inflammatory etiology. No pulmonary edema or pleural effusion. Mild cardiomegaly. Atherosc lerotic coronary artery calcific lesion. Aortic valve and mitral annular calcification. No pericardia l effusion. Thoracic aorta is normal in caliber. There is enlargement of the central pulmonary arteri es consistent with pulmonary arterial hypertension. Calcified left hilar lymph node consistent with o ld granulomatous disease. 2.8 cm low-attenuation right thyroid nodule. Left total shoulder arthroplas ty. Advanced right glenohumeral osteoarthritis. Moderate thoracic spondylosis with bridging osteophyt es at multiple levels consistent with diffuse idiopathic skeletal hyperostosis (DISH). ABDOMEN/PELVIS CT: Prominent dilation of the gallbladder which measures up to 6.8 x 5.5 cm maximal diameter. No definiti ve gallbladder wall thickening or pericholecystic inflammatory stranding to more specifically suggest acute cholecystitis. There are few well-defined low-attenuation hepatic cysts, the largest exophytic cyst measuring 2.0 cm. Spleen, pancreas and bilateral adrenal glands are normal. Mild bilateral rosalino l atrophy with 2 cm cyst at the lower pole of the right kidney. Infrarenal IVC filter. Bladder is dec ompressed around a Pop catheter. The uterus is not identified and has likely been surgically resect ed. No bowel obstruction. No free intraperitoneal gas or fluid. No pathologically enlarged abdominal or pelvic lymphadenopathy. There is calcified atherosclerosis of the aorta and many of the other emely leon. Changes of healing of a chronic still ununited fractures of the right inferior and superior pub ic rami, the latter with some involvement of the anterior wall of the acetabulum. There are also heal ing sacral insufficiency fractures and across the S2 vertebral body and sagittal oriented fracture pl anes at the bilateral sacral ala. IMPRESSION: 1. Prominent dilation of the gallbladder which raises possibility of acute cholecystitis although the re is no evident gallbladder wall thickening or pericholecystic inflammatory stranding to more specif ically suggest this. Correlate for Wallace sign and consider further evaluation with either HIDA scan or right upper quadrant ultrasound. 2. Healing subacute to early chronic fractures of the right superior and inferior pubic rami, the for jimbo also involving the anterior wall of the right acetabulum as well as sacral insufficiency fracture s. 3. 5 mm subpleural nodule at the lingula new since study from one week prior favoring either atelecta sis or infectious/inflammatory etiology. 4. IVC filter in expected position. Reviewed, dictated and finalized at location A. CTOR OF CARDIOLOGY IMPRESSION: 1. Prominent dilation of the gallbladder which raises possibility of acute chol ecystitis although there is no evident gallbladder wall thickening or perichole cystic inflammatory stranding to more specifically suggest this. Correlate for Wallace sign and consider further evaluation with either HIDA scan or right uppe r quadrant ultrasound. 2. Healing subacute to early chronic fractures of the right superior and inferi or pubic rami, the former al
--- NOTE | ~2023-09-26 | XR_ITS ---
XR chest 1V portable DATE: 09/26/2023 15:02 INDICATION: Pneumonia. Weakness. TECHNIQUE: Portable upright AP chest on 09/26/2023 at 1501 hours COMPARISON: 09/22/2023 CTA chest 09/19/2023 portable AP chest FINDINGS: Cardiomegaly. There is pulmonary vascular congestion and redistribution consistent with pul monary venous hypertension. Is mild infiltrate and/or atelectasis in the left lower lobe. The lungs otherwise appear essentially clear of infiltrate or consolidation. No pleural effusion or pneumothorax is evident. Prominent diffuse osteopenia. Prominent right glenohumeral osteoarthritis. Left humeral head replacement. IMPRESSION: Left lower lobe infiltrate and/or atelectasis Cardiomegaly, pulmonary vascular redistribution, suggesting pulmonary venous hypertension, mild conge stive heart failure Reviewed, dictated and finalized at location L. IAL SERVICES AGENT IMPRESSION: Left lower lobe infiltrate and/or atelectasis Cardiomegaly, pulmonary vascular redistribution, suggesting pulmonary venous hy pertension, mild congestive heart failure
--- NOTE | ~2023-09-26 | XR_ITS ---
EXAMINATION: XR humerus LT DATE: 09/26/2023 17:19 INDICATION: Left humerus injury. TECHNIQUE: 2 views of left humerus on 3 radiographs were obtained. COMPARISON: Chest CT 09/22/2013 FINDINGS: There is a left shoulder hemiarthroplasty in near-anatomic alignment. No periprosthetic hong ency to suggest loosening or infection. No fracture. There is severe acromioclavicular joint osteoart hritis. There is mild calcific tendinitis of the rotator cuff. IMPRESSION: 1. Left shoulder hemiarthroplasty in near-anatomic alignment. 2. Severe left acromioclavicular joint osteoarthritis. 3. Mild left rotator cuff calcific tendinitis. Reviewed, dictated and finalized at location E. LITIES ASSISTANT
--- NOTE | ~2023-09-26 | US_ITS ---
EXAMINATION: US right upper quadrant DATE: 09/29/2023 15:07 INDICATION: Abnormal CT . With distended gallbladder TECHNIQUE: Multiple grayscale and Doppler ultrasound images of the abdomen were obtained. COMPARISON: CT dated 09/29/2023 FINDINGS: Pancreas was unable to be visualized. Liver has normal echogenicity and contour, with a smooth surfac e. No liver lesion identified. No intrahepatic biliary duct dilation suspected. Portal venous flow wa s seen in the hepatopetal, normal direction and has normal Doppler waveform. There are prominent dist ention of the gallbladder which measures approximately 11.5 cm in length and up to 5.9 cm maximal pa meter. No evident cholelithiasis or gallbladder wall thickening. Unable to assess for sonographic Mur phy sign due to patient mental status. Common bile duct measures 6 mm diameter which is within normal limits for age. Right kidney measures 8.7 x 5.9 x 5.4 cm with no hydronephrosis. 2.2 cm anechoic rig ht renal cyst. Visualized proximal inferior vena cava is normal. IMPRESSION: 1. Prominent gallbladder dilation but with no cholelithiasis or gallbladder wall thickening to sugges t acute cholecystitis. Reviewed, dictated and finalized at location A. SYSTEMS ANALYST IMPRESSION: 1. Prominent gallbladder dilation but with no cholelithiasis or gallbladder wal l thickening to suggest acute cholecystitis.
--- NOTE | ~2023-09-26 | XR_ITS ---
EXAMINATION: XR chest 1V DATE: 09/28/2023 12:21 INDICATION: Shortness of breath. TECHNIQUE: A single frontal view of the chest was obtained. COMPARISON: Chest single view 09/26/2023, chest CT 09/22/2023 FINDINGS: There is mild atelectasis at left lung base. Calcified left hilar lymph nodes are consisten t with old granulomatous disease. No pleural effusion or pneumothorax. Cardiomegaly is noted. The silvia tral pulmonary arteries are enlarged, consistent with pulmonary arterial hypertension. There is a lef t shoulder arthroplasty. IMPRESSION: 1. Mild atelectasis at left lung base. 2. Cardiomegaly. Reviewed, dictated and finalized at location E. ROLLING MACHINE OPERATOR
--- NOTE | ~2023-09-26 | NM_ITS ---
EXAMINATION: NM lung vent and perfusion DATE: 09/28/2023 12:16 INDICATION: Tachycardia and shortness of breath TECHNIQUE: 17.49 mCi xenon-133 by inhalation and 5.9 mCi Tc-99m MAA by intravenous route. Scintigrap hic images of the chest were obtained. COMPARISON: Radiograph dated 09/26/2023 FINDINGS: Moderate-sized perfusion defects involving the posterior basal, anterior basal segments of the right lower lobe and the medial segment of the right middle lobe. Nonsegmental horizontal cross the left stephan ng between the superior and middle thirds. Couple small perfusion defects along the left lung base. T here appear to be corresponding matched ventilation defects on the posterior scintigrams. No unmatche d perfusion defects on the posterior scintigrams. The lungs appear clear. IMPRESSION: 1. Very low probability for pulmonary embolism. Reviewed, dictated and finalized at location A. HEAD PUNCHER
[2023-09-26 15:20] LABS: Basophils Percent Auto 0.4 % (0.2-1.2); Hematocrit 33.9 % (37.0-47.0); Hemoglobin 10.2 g/dL (12.0-15.0); Immature Granulocyte Absolute 0.17 K/mm3 (0.00-0.031); Immature Granulocyte Percent A 1.6 % (0-0.5); Lymphocytes Absolute Auto 0.38 K/mm3 (0.9-3.2); Lymphocytes Percent Auto 3.5 % (18.3-44.2); Mean Corpuscular HGB Conc 30.1 g/dl (32-36); Mean Corpuscular Hemoglobin 29.4 pg (26-34); Mean Corpuscular Volume 97.7 fl (80-100); Mean Platelet Volume 10.7 fl (7.4-10.4); Monocytes Absolute Auto 0.5 K/mm3 (0.1-0.6); Monocytes Percent Auto 4.5 % (2.6-8.5); Neutrophils Absolute Auto 9.8 K/mm3 (1.3-6.7); Platelet Count Result 103 k/mm3 (150-375); Red Blood Count 3.47 M/mm3 (4.2-5.4); Red Cell Distribution Width 15.4 % (11.5-14.5); White Blood Count 10.9 K/mm3 (4.5-10.0)
[2023-09-26 15:31] LABS: Alanine Aminotransferase 18 U/L (6-35); Albumin Level 3.1 g/dL (3.5-5.1); Alkaline Phosphatase 75 U/L (38-126); Anion Gap 9 mmol/L (8-16); Aspartate Amino Transferase 32 U/L (14-36); Bilirubin,Total 0.8 mg/dL (0.2-1.3); Blood Urea Nitrogen 55 mg/dL (7-17); Calcium 8.6 mg/dL (8.4-10.2); Carbon Dioxide 24 mmol/L (22-30); Chloride 109 mmol/L (98-107); Estimated CRCL calculation 19 ml/min; Estimated Glomerular Filt Rate 24; Glucose 140 mg/dL (65-110); Potassium 4.1 mmol/L (3.4-5.0); Sodium 142 mmol/L (137-145)
--- NOTE | 2023-09-26 15:39 | ECG_ITS ---
Measurements Intervals [place] Rate: 79 P: 83 [place]: 170 QRS: 18 QRSD: 109 T: 44 QT: 374 QTc: 431 Interpretive Statements SINUS RHYTHM BASELINE ARTIFACT- I, II, AVL NORMAL ECG COMPARED TO ECG 09/19/2023 17:30:40 NO SIGNIFICANT CHANGES Electronically Signed On 09-26-2023 17:01:30 NEON MOLDER by Mayito Gutiérrez D.O.
[2023-09-26 16:13] LABS: NT Pro B Type Natriuretic Pept 23100 pg/mL (19.9-100)
[2023-09-26 16:30] LABS: Influenza A QL RT-PCR Positive (Negative); Influenza B QL RT-PCR Negative (Negative); RSV RNA, RT-PCR Negative (Negative); SARS-CoV-2 RNA PCR Negative (Negative)
--- NOTE | 2023-09-26 17:02 | ED.GENADULT ---
HPI - General Adult General Chief complaint: Recheck/Abnormal Lab/Rx Stated complaint: recheck/pneumonia Time Seen by Provider: 09/26/23 15:39 History of Present Illness HPI narrative: 88-year-old female presents emergency department for evaluation an x-ray that showed infiltrates. Patient was also found to have a fever of 103 and was treated with Tylenol and this helped improve her fever. patient was recently discharged from [facility] with diagnosis CHF exacerbation did improve with Lasix. while patient was at rehab she had worsening symptoms. Patient was also complaining of left humerus pain to nursing staff at the facility after a recent fall. Related Data Home Medications Medication Instructions Recorded Confirmed amiodarone 100 mg tablet 100 mg PO DAILY 02/08/23 09/26/23 ipratropium-albuterol 3 ml inhalation QID PRN Shortness 02/08/23 09/26/23 Of Breath Or Wheezing acetaminophen 325 mg capsule 650 mg PO Q6H PRN Pain (Scale 04/14/23 09/26/23 Score 1-5) ammonium lactate 12 % lotion 1 applic topical DAILY 04/14/23 09/26/23 apixaban 5 mg tablet (Eliquis) 2.5 mg PO Q12H 04/14/23 09/26/23 aspirin 81 mg capsule 81 mg PO DAILY 04/14/23 09/26/23 bisacodyl 5 mg tablet 10 mg PO DAILY Constipation 04/14/23 09/26/23 cholecalciferol (vitamin D3) 25 25 mcg PO DAILY 04/14/23 09/26/23 mcg (1,000 unit) capsule (Vitamin D3) ferrous sulfate 325 mg (65 mg 325 mg PO DAILY 04/14/23 09/26/23 iron) tablet,delayed release hydrocortisone 2.5 % topical cream 1 applic topical BID PRN Itching 04/14/23 09/26/23 lanolin alcohols-mineral 1 applic topical DAILY 04/14/23 09/26/23 oil-w.petrolatum-ceresin topical cream (Minerin Creme topical) magnesium 250 mg tablet 500 mg PO DAILY 04/14/23 09/26/23 multivitamin 1 tablet PO DAILY 04/14/23 09/26/23 polyethylene glycol 3350 17 gram 17 g PO DAILY 04/14/23 09/26/23 oral powder packet (Miralax) citalopram 20 mg tablet 20 mg PO DAILY 09/19/23 09/26/23 cyanocobalamin (vitamin B-12) 1,000 mcg PO DAILY 09/19/23 09/26/23 1,000 mcg capsule hydrocodone 7.5 mg-acetaminophen 1 tablet PO Q8H PRN Pain (Scale 09/19/23 09/26/23 325 mg tablet Score 6-10) spironolactone 25 mg tablet 25 mg PO DAILY 09/19/23 09/26/23 Allergies Allergy/AdvReac Type Severity Reaction Status Date / Time codeine Allergy Other Verified 09/19/23 17:33 Review of Systems Review of Systems: All systems reviewed & are unremarkable except as noted in HPI and below PMFSH Past Medical History Medical History Acute respiratory failure with hypoxia Alzheimer's disease, unspecified Anemia, unspecified Arthritis of elbow, right, degenerative Atherosclerotic heart disease Cellulitis of left lower limb CHF (congestive heart failure) Echocardiogram 02/10/2023: EF 50-55%, septal wall motion abnormality related to bundle-branch block, mild left atrial enlargement, mild tricuspid regurgitation, grade 1 diastolic dysfunction Chronic atrial fibrillation, unspecified Chronic kidney disease, stage 3b Chronic systolic (congestive) heart failure Chronic venous stasis dermatitis of both lower extremities Closed fracture of right proximal humerus (02/2023) Constipation Degenerative arthritis of right shoulder region Dementia Depression DVT (deep venous thrombosis) 10/19/22 Left lower extremity venous Doppler showed DVT involving left femoral vein. Previously on Eliquis with dose increased. Essential hypertension Generalized osteoarthritis History of 2019 novel coronavirus disease (COVID-19) History of atrial fibrillation Hyperlipidemia Hypokalemia Insomnia Major depressive disorder, recurrent, moderate Obesity GRADY on CPAP Sepsis Unspecified hemorrhoids Vitamin D deficiency Surgical History Surgical History History of total hysterectomy with bilateral salpingo-oophorectomy (BSO) History of total right knee rep
[2023-09-26] MEDS: FUROSEMIDE INJ 40 MG/4 ML VIAL IV PUSH ×2 (18:18→20:53)
[2023-09-26] MEDS: AZITHROMYCIN 500 MG/NS 250 ML 500 MG/250 ML BAG 250 MG IVPB (19:10)
--- NOTE | 2023-09-26 21:18 | PM.IMHP ---
H&P: HPI History of Present Illness Date/Time: 09/26/23 22:30 Chief Complaint: Fever. Narrative: This is an 88-year-old female with history of dementia, atrial fibrillation on anticoagulation, iron deficiency anemia, hypertension, congestive heart failure, and chronic pain syndrome who presented to the emergency department via EMS from her nursing facility for evaluation of a fever. She is not the best historian and some of the following is supplemented via a review of her EMR. She was discharged from this facility last week after being admitted with shortness of breath felt to be due to CHF exacerbation. She received 1 dose of IV furosemide during that stay. The last couple of days she has not been feeling well and she spiked a fever yesterday of 103?. Outpatient chest x-ray reportedly was concerning for pneumonia and she was sent to the ED for evaluation. She was afebrile on arrival with stable vital signs. SpO2 is currently 100% on 2 L nasal cannula. She tested positive for influenza A. Chest x-ray showed left lower lobe infiltrate and/or atelectasis. Findings of mild congestive heart failure were also noted. She was given a dose of azithromycin, ceftriaxone, and IV furosemide and she is being admitted in this setting for further treatment of influenza and mild CHF exacerbation. At the time my evaluation she is resting comfortably. She arouses easily. She has no current complaints and denies headache, chest pain, shortness a breath, nausea, vomiting, and body aches. Review of Systems Review of Systems: Twelve systems were reviewed and are negative except for as per HPI. [facility] Past Medical History Medical History Acute respiratory failure with hypoxia Alzheimer's disease, unspecified Anemia, unspecified Arthritis of elbow, right, degenerative Atherosclerotic heart disease Cellulitis of left lower limb CHF (congestive heart failure) Echocardiogram 02/10/2023: EF 50-55%, septal wall motion abnormality related to bundle-branch block, mild left atrial enlargement, mild tricuspid regurgitation, grade 1 diastolic dysfunction Chronic atrial fibrillation, unspecified Chronic kidney disease, stage 3b Chronic systolic (congestive) heart failure Chronic venous stasis dermatitis of both lower extremities Closed fracture of right proximal humerus (02/2023) Constipation Degenerative arthritis of right shoulder region Dementia Depression DVT (deep venous thrombosis) 10/19/22 Left lower extremity venous Doppler showed DVT involving left femoral vein. Previously on Eliquis with dose increased. Essential hypertension Generalized osteoarthritis History of 2019 novel coronavirus disease (COVID-19) History of atrial fibrillation Hyperlipidemia Hypokalemia Insomnia Major depressive disorder, recurrent, moderate Obesity GRADY on CPAP Sepsis Unspecified hemorrhoids Vitamin D deficiency Surgical History Surgical History History of total hysterectomy with bilateral salpingo-oophorectomy (BSO) History of total right knee replacement S/P insertion of IVC (inferior vena caval) filter Family History Family History Other Unknown family medical history Social History Social History Social History: The patient lives at [facility] in [place]. She states that she has a couple of children. She smoked briefly as a teenager. She denies any significant alcohol use. She thinks she had a couple of kids. Patient is not best historian is only oriented to person at the time of my evaluation. Code status: DNR/DNI (per [facility] report) Smoking status: Never smoker Alcohol intake: never Substance use: never Substance use type: does not use Lack of Transportation: No Lack of Food: Never True Cur
[2023-09-26] MEDS: HYDROcodone/acetaminophen (*CRX) 7.5-325 MG TABLET 1 TAB PO (23:05)
--- NOTE | 2023-09-26 23:47 | ADMGEN ---
This patient, Darby Mcbride, was admitted to 3 [facility] Surg Room 309-01. Patient/family oriented to hospital policies and general routines including ID bracelet, bed and alarms, visiting hours, pain management, procedures, bathroom and other care routines, personal items, smoking policy, room service/diet, and visiting hours. Information on how to activate the Rapid Response Team has been discussed. Patient/Family are encouraged to report perceived risks to care and to ask questions if they do not understand what they are told or what they should do.
[2023-09-27] VITALS (17 sets, daily range): BP systolic 94–135; BP diastolic 62–68; PULSE 82–130; RESP 20–26; TEMP 36.6–37; O2SAT 92–97; BMI 32.8
[2023-09-27 01:44] LABS: Anion Gap 9 mmol/L (8-16); Blood Urea Nitrogen 59 mg/dL (7-17); Calcium 8.4 mg/dL (8.4-10.2); Carbon Dioxide 24 mmol/L (22-30); Chloride 107 mmol/L (98-107); Estimated CRCL calculation 19 ml/min; Estimated Glomerular Filt Rate 22; Glucose 125 mg/dL (65-110); Magnesium 2.1 mg/dL (1.6-2.3); Potassium 3.8 mmol/L (3.4-5.0); Sodium 140 mmol/L (137-145)
[2023-09-27] MEDS: IPRATROPIUM 0.5 MG/ALBUTEROL SULFATE 2.5 MG AMPUL.NEB 3 ML INHALATION (02:27)
[2023-09-27] MEDS: HYDROcodone/acetaminophen (*CRX) 7.5-325 MG TABLET 1 TAB PO ×2 (05:45→16:15)
--- NOTE | 2023-09-27 07:48 | ECG_ITS ---
Measurements Intervals Ailey Rate: 112 P: AR: 0 QRS: -5 QRSD: 113 T: -8 QT: 315 QTc: 432 Interpretive Statements ATRIAL FIBRILLATION WITH RAPID VENTRICULAR RESPONSE VENTRICULAR PREMATURE COMPLEXES INTRAVENTRICULAR CONDUCTION DELAY LEFT VENTRICULAR HYPERTROPHY BORDERLINE ST-T WAVE ABNORMALITY- INFERIOR LEADS BASELINE ARTIFACT- AVR, AVL, AVF, V4-V6 COMPARED TO ECG 09/26/2023 16:47:36 ATRIAL FIBRILLATION NOW PRESENT INTRAVENTRICULAR CONDUCTION DELAY NOW PRESENT ST-T WAVE ABNORMALITY NOW PRESENT Electronically Signed On 09-27-2023 8:28:37 MILITARY PILOT by Mayito Gutiérrez D.O.
[2023-09-27 07:58] LABS: Hematocrit 34.6 % (37.0-47.0); Hemoglobin 10.4 g/dL (12.0-15.0); Mean Corpuscular HGB Conc 30.1 g/dl (32-36); Mean Corpuscular Volume 99.7 fl (80-100); Mean Platelet Volume 11.8 fl (7.4-10.4); Platelet Count Result 103 k/mm3 (150-375); Red Blood Count 3.47 M/mm3 (4.2-5.4); Red Cell Distribution Width 15.5 % (11.5-14.5); White Blood Count 10.1 K/mm3 (4.5-10.0)
[2023-09-27] MEDS: METOPROLOL TARTRATE INJ 5 MG/5 ML VIAL IV PUSH (09:06)
[2023-09-27] MEDS: FUROSEMIDE INJ 40 MG/4 ML VIAL IV PUSH (09:08)
[2023-09-27] MEDS: CITALOPRAM HYDROBROMIDE 20 MG TABLET PO (10:49)
[2023-09-27] MEDS: SPIRONOLACTONE 25 MG TABLET PO (10:49)
[2023-09-27] MEDS: APIXABAN 2.5 MG TABLET PO ×2 (10:49→21:40)
[2023-09-27] MEDS: AMIODARONE HCL 100 MG TABLET PO (10:51)
[2023-09-27] MEDS: EUCERIN CREAM 120 GM JAR 1 APPLIC TOPICAL (10:52)
[2023-09-27] MEDS: POTASSIUM CHLORIDE 20 MEQ ER TABLET 40 MEQ PO (11:03)
[2023-09-27] MEDS: CYANOCOBALAMIN 1,000 MCG TABLET 1000 MCG PO (11:04)
[2023-09-27] MEDS: CHOLECALCIFEROL 1,000 UNITS TABLET 1000 UNITS PO (11:04)
[2023-09-27] MEDS: MULTIVITAMINS THERAPEUTIC TAB (*BKC) 1 TABLET PO (11:04)
[2023-09-27] MEDS: ASPIRIN 81 MG ENTERIC TABLET PO (11:04)
[2023-09-27] MEDS: MAGNESIUM OXIDE 400 MG TABLET PO (11:04)
--- NOTE | 2023-09-27 13:48 | PCSTNOTE ---
Please refer to the Bedside Swallow Evaluation in the EMR. Please note, silent aspiration cannot be ruled out at bedside.
--- NOTE | 2023-09-27 15:36 | PM.IMPN ---
Progress Note: A&P Assessment and Plan (1) Influenza A: Code(s): J10.1 - Influenza due to other identified influenza virus with other respiratory manifestations Status: Acute Assessment and Plan: positive for flu A supportive measures currently on 3L O2 which is not her baseline BC showing gram + cocci in clusters will start on Vancomycin MRSA cultures to be collected (2) CHF exacerbation: Qualifiers: Heart failure type: unspecified Qualified Code(s): I50.9 - Heart failure, unspecified Code(s): I50.9 - Heart failure, unspecified Status: Chronic Assessment and Plan: Chest x-ray shows findings of mild congestive changes proBNP is markedly elevated compared to just last week. cautiously diuresed with close monitoring of volume status, renal function, electrolytes, and blood pressures (3) Chronic kidney disease: Code(s): N18.9 - Chronic kidney disease, unspecified Status: Chronic Assessment and Plan: creatinine 2.10, eGFR 22 continue to monitor (4) Atrial fibrillation: Code(s): I48.91 - Unspecified atrial fibrillation Status: Chronic Assessment and Plan: repeat EKG this am due to afib with RVR IV metoprolol given, resolved continue home amiodarone (5) Chronic anticoagulation: Code(s): Z79.01 - longterm (current) use of anticoagulants Status: Chronic Assessment and Plan: continue Eliquis Subjective Date/time seen: 09/27/23 15:36 Review of Systems Review of Systems: All systems reviewed & are unremarkable except as noted in HPI and below Exam Narrative: General: Mildly ill-appearing elderly female in no acute stress. HEENT: PERRL, EOMI. Neck: Supple. Exam limited due to positioning and neck circumference. No obvious JVD. Respiratory: Coarse lung sounds heard anteriorly with crackles at the bases. Cardiovascular: Irregular rhythm with S1-S2. Gastrointestinal: Abdomen is soft, obese, nontender, and nondistended with positive bowel sounds. Skin: Warm and dry. Chronic hyperpigmentation of the lower legs. Extremities: No cyanosis or clubbing. 2+ pitting edema softening towards the knees. Radial and pedal pulses intact. Neurological: Alert. Cranial nerves 2-12 are grossly intact. No gross focal deficits. Psychiatric: Pleasantly confused and cooperative. Objective Data Vital Signs Vital Signs: Vital Signs - 24 hr 09/26/23 16:01 09/26/23 16:16 09/26/23 16:50 Temperature Pulse Rate 80 80 80 Respiratory Rate 31 H 25 H 22 H Blood Pressure 111/63 119/82 127/54 L Pulse Oximetry 100 100 100 09/26/23 17:01 09/26/23 17:31 09/26/23 17:46 Temperature Pulse Rate 82 84 85 Respiratory Rate 22 H 22 H 22 H Blood Pressure 138/55 L 134/85 110/74 Pulse Oximetry 100 100 100 09/26/23 18:31 09/26/23 19:00 09/26/23 19:40 Temperature Pulse Rate 94 88 87 Respiratory Rate 22 H 24 H 24 H Blood Pressure 134/84 120/61 137/60 Pulse Oximetry 98 100 100 09/26/23 20:35 09/27/23 00:00 09/27/23 02:28 Temperature 98.3 F Pulse Rate 90 86 86 Respiratory Rate 36 H 20 Blood Pressure 131/88 Pulse Oximetry 100 09/27/23 02:43 09/27/23 04:00 09/27/23 06:16 Temperature Pulse Rate 87 117 H Respiratory Rate 20 Blood Pressure 135/64 Pulse Oximetry 09/27/23 05:45 09/27/23 09:06 09/27/23 10:51 Temperature 98 F Pulse Rate 82 115 H 115 H Respiratory Rate 20 Blood Pressure 135/64 Pulse Oximetry 94 09/27/23 14:02 09/27/23 14:00 Temperature 98.6 F Pulse Rate 117 H Respiratory Rate 22 H Blood Pressure 94/62 L Pulse Oximetry 92 Intake/Output Intake/Output: Intake & Output 09/24/23 09/25/23 09/26/23 09/27/23 23:59 23:59 23:59 23:59 Intake Total 50 250 Output Total 175 Balance 50 75 Meds/Results Medications: Active Medications Generic Name Dose Route Start Last Admin Trade Name Freq PRN Reason Stop Dose Ad
[2023-09-27] MEDS: VANCOMYCIN 1,250 MG/NS 250 ML 1,250 MG/250 ML BAG 166.67 MG IVPB (16:16)
[2023-09-27] MEDS: LORazepam INJ (*CRX) 2 MG/ML VIAL 0.5 MG IV PUSH (17:59)
[2023-09-27] MEDS: SODIUM CHLORIDE 0.9% IV 1,000 ML 100 ML IV CONT (18:30)
[2023-09-27 20:35] LABS: MRSA (PCR) DETECTED (NOT DETECTE)
[2023-09-28] VITALS (12 sets, daily range): BP systolic 117–132; BP diastolic 56–68; PULSE 67–128; RESP 18–31; TEMP 35.5–36.3; O2SAT 91–99
--- NOTE | 2023-09-28 02:13 | PC.NURSE ---
Medications administered from 09/27/20231999 - 09/28/2023 0100 were done by this RN
[2023-09-28 07:05] LABS: Basophils Percent Auto 0.2 % (0.2-1.2); Hematocrit 34.3 % (37.0-47.0); Hemoglobin 10.1 g/dL (12.0-15.0); Immature Granulocyte Absolute 0.07 K/mm3 (0.00-0.031); Immature Granulocyte Percent A 0.8 % (0-0.5); Immature Platelet Fraction Pct 6.3 % (0.9-11.2); Lymphocytes Absolute Auto 0.77 K/mm3 (0.9-3.2); Lymphocytes Percent Auto 8.3 % (18.3-44.2); Mean Corpuscular HGB Conc 29.4 g/dl (32-36); Mean Corpuscular Hemoglobin 29.2 pg (26-34); Mean Corpuscular Volume 99.1 fl (80-100); Mean Platelet Volume 12.3 fl (7.4-10.4); Monocytes Absolute Auto 0.7 K/mm3 (0.1-0.6); Monocytes Percent Auto 7.4 % (2.6-8.5); Neutrophils Absolute Auto 7.7 K/mm3 (1.3-6.7); Neutrophils Percent Auto 83.3 % (45.5-73.1); Platelet Count Result 66 k/mm3 (150-375); Red Blood Count 3.46 M/mm3 (4.2-5.4); Red Cell Distribution Width 15.5 % (11.5-14.5); White Blood Count 9.3 K/mm3 (4.5-10.0)
[2023-09-28 07:20] LABS: Anion Gap 7 mmol/L (8-16); Blood Urea Nitrogen 79 mg/dL (7-17); Calcium 8.6 mg/dL (8.4-10.2); Carbon Dioxide 24 mmol/L (22-30); Chloride 110 mmol/L (98-107); Estimated CRCL calculation 12 ml/min; Estimated Glomerular Filt Rate 13; Glucose 122 mg/dL (65-110); Potassium 4.4 mmol/L (3.4-5.0); Sodium 141 mmol/L (137-145)
[2023-09-28 08:13] LABS: Anisocytosis 1+ (NORMAL); Platelet Estimate Decreased (Adequate); Poikilocytosis 1+ (NORMAL); Schistocytes None Seen (NORMAL)
[2023-09-28] MEDS: METOPROLOL TARTRATE INJ 5 MG/5 ML VIAL IV PUSH (09:26)
[2023-09-28] MEDS: FUROSEMIDE INJ 40 MG/4 ML VIAL IV PUSH (09:26)
[2023-09-28] MEDS: HYDROcodone/acetaminophen (*CRX) 7.5-325 MG TABLET 1 TAB PO ×2 (09:28→17:27)
[2023-09-28] MEDS: AMIODARONE HCL 100 MG TABLET PO (09:30)
[2023-09-28] MEDS: BISACODYL 5 MG TABLET EC 10 MG PO (13:04)
[2023-09-28] MEDS: APIXABAN 2.5 MG TABLET PO ×2 (13:04→21:34)
[2023-09-28] MEDS: CHOLECALCIFEROL 1,000 UNITS TABLET 1000 UNITS PO (13:05)
[2023-09-28] MEDS: MAGNESIUM OXIDE 400 MG TABLET PO (13:05)
[2023-09-28] MEDS: FERROUS SULFATE 325 MG TABLET DR PO (13:05)
[2023-09-28] MEDS: CITALOPRAM HYDROBROMIDE 20 MG TABLET PO (13:05)
[2023-09-28] MEDS: CYANOCOBALAMIN 1,000 MCG TABLET 1000 MCG PO (13:05)
[2023-09-28] MEDS: POTASSIUM CHLORIDE 20 MEQ ER TABLET 40 MEQ PO (13:05)
[2023-09-28] MEDS: ASPIRIN 81 MG ENTERIC TABLET PO (13:05)
[2023-09-28] MEDS: EUCERIN CREAM 120 GM JAR 1 APPLIC TOPICAL (13:06)
[2023-09-28] MEDS: SPIRONOLACTONE 25 MG TABLET PO (13:06)
[2023-09-28] MEDS: MULTIVITAMINS THERAPEUTIC TAB (*BKC) 1 TABLET PO (13:09)
[2023-09-28] MEDS: SODIUM CHLORIDE 0.9% IV 1,000 ML 100 ML IV CONT ×2 (13:09→17:23)
--- NOTE | 2023-09-28 13:29 | P.CDI_ITS ---
CDI Query Clarification Request BMI 32.8 Nutritional Diagnostic Statement Severe protein calorie malnutrition related to chronic dementia, loss of appetite from acute illness and increased needs for wound healing; as evidenced by weight loss 21%/5 months: intakes < 75% > 1 month; NFPE findings of moderate muscle wasting and fat loss; poor healing pressure injury. Please refer to the comprehensive nutrition assessment for further information. Please clarify severity of protein calorie malnutrition if known: * Mild * Moderate * Severe * Other/ Unspecified <Babs Lee RN - Last Filed: 09/28/23 13:33> Clarified Diagnosis Clarified Diagnosis: severe malnutrition <Luz Maria De La Rosa APRN - Last Filed: 09/29/23 08:38>
--- NOTE | 2023-09-28 13:34 | P.CDI_ITS ---
CDI Query Clarification Request CHF noted in the assessment and plan. Documented history of CHF. Elevated BNP on 09/26/23 lab work. Patient receiving Lasix. Lasix listed as a home medication. 09/26/23 chest xray notes CHF. Please specify type and acuity of heart failure if known. * Acute * Chronic * Acute on Chronic * Unknown * Systolic * Diastolic * Combined Systolic and Diastolic * Unknown <Babs Lee RN - Last Filed: 09/28/23 13:38> Clarified Diagnosis Clarified Diagnosis: chronic, unknown <Luz Maria De La Rosa APRN - Last Filed: 09/29/23 08:37>
[2023-09-28 13:47] LABS: Appearance Urine Turbid (Clear); Bacteria Urine None Seen /hpf; Bilirubin Urine Negative (Negative); Blood Urine Negative (Negative); Color Urine Dark Yellow (Yellow); Glucose Urine UA Negative (Negative); Granular Casts Urine Present /lpf; Ketones Urine Trace mg/dL (Negative); Leukocyte Esterase Ur Negative LEU/UL (Negative); Nitrate Urine Negative (Negative); Non Pathogenic Casts >20; Protein Urine 1+ mg/dL (Negative); RBC Urine 0-2 /hpf (0-2); Specific Grav Ur 1.019 (1.001-1.035); Squamous Epithelial Cell Urine Few /hpf (Few); WBC Urine 0-5 /hpf
[2023-09-28 13:51] LABS: Add Urine Microscopic? YES
[2023-09-28 14:32] LABS: Anion Gap 7 mmol/L (8-16); Blood Urea Nitrogen 88 mg/dL (7-17); Calcium 8.2 mg/dL (8.4-10.2); Carbon Dioxide 22 mmol/L (22-30); Chloride 114 mmol/L (98-107); Estimated CRCL calculation 12 ml/min; Estimated Glomerular Filt Rate 13; Glucose 150 mg/dL (65-110); Potassium 4.5 mmol/L (3.4-5.0); Sodium 143 mmol/L (137-145)
--- NOTE | 2023-09-28 15:50 | P.PNIM_ITS ---
Progress Note: A&P Assessment and Plan (1) Influenza A: Code(s): J10.1 - Influenza due to other identified influenza virus with other respiratory manifestations Status: Acute Assessment and Plan: * positive for flu A * supportive measures * currently on 3L O2 which is not her baseline * BC showing staph aureus * Vancomycin renally dosed * nasal MRSA cultures positive (2) CHF exacerbation: Qualifiers: Heart failure type: unspecified Qualified Code(s): I50.9 - Heart failure, unspecified Code(s): I50.9 - Heart failure, unspecified Status: Chronic Assessment and Plan: * Chest x-ray shows findings of mild congestive changes * proBNP is markedly elevated compared to just last week. * cautiously diuresed with close monitoring of volume status, renal function, electrolytes, and blood pressures (3) Chronic kidney disease: Code(s): N18.9 - Chronic kidney disease, unspecified Status: Chronic Assessment and Plan: * worsening kidney function this morning, indicative or worsening or LEXUS * creatinine 3.30, creatinine clearance 12, eGFR 13 * Urinary output poor. bladder scan showed 17-19 ml. * straight catheter got 50 ml for UA. * renal US normal * UA negative for infection * nephrology consulted - appreciate input * gentle IVF as PO intake is poor * continue to monitor (4) Atrial fibrillation: Code(s): I48.91 - Unspecified atrial fibrillation Status: Chronic Assessment and Plan: * IV metoprolol given this morning again for tachycardia and afib, non- symptomatic * continue home amiodarone (5) Chronic anticoagulation: Code(s): Z79.01 - intermediate card tender (current) use of anticoagulants Status: Chronic Assessment and Plan: * continue Eliquis Subjective Date/time seen: 09/28/23 15:50 Interval history: Patient is visibly upset this morning, she has been on and off since her recently. She is essentially non-verbal this morning. Unsure of source of infection, as her urine was negative for infection. Due to MRSA and Staph on BC, likely a skin source although not visible thus far on exam. Pop inserted for strict I&O due to severely decreased urine output and worsening kidney function. Nephrology consulted for input. Will continue Vanc and renal d ose. Monitor patient very closely. Review of Systems Review of Systems: ROS unobtainable: Yes unobtainable due to mental status Exam Narrative: General: Mildly ill-appearing elderly female, visibly upset. Neck: Supple. Exam limited due to positioning and neck circumference. No obvious JVD. Respiratory: Coarse lung sounds heard anteriorly with crackles at the bases. Cardiovascular: Irregular rhythm with S1-S2. Gastrointestinal: Abdomen is soft, obese, nontender, and nondistended with positive bowel sounds. Skin: Warm and dry. Chronic hyperpigmentation of the lower legs. Extremities: No cyanosis or clubbing. 2+ pitting edema softening towards the knees. Radial and pedal pulses intact. Neurological: Alert. Cranial nerves 2-12 are grossly intact. No gross focal deficits. Psychiatric: visibly upset this morning, non verbal. Objective Data Vital Signs Vital Signs: Vital Signs - 24 hr 09/27/23 16:00 09/27/23 21:13 09/27/23 21:43 Temperature 98.2 F Pulse Rate 114 H 125 H Respiratory Rate 24 H 26 H Blood Pressure 120/68 Pulse Oximetry 97
--- NOTE | 2023-09-28 15:50 | PM.IMPN ---
Progress Note: A&P Assessment and Plan (1) Influenza A: Code(s): J10.1 - Influenza due to other identified influenza virus with other respiratory manifestations Status: Acute Assessment and Plan: positive for flu A supportive measures currently on 3L O2 which is not her baseline BC showing staph aureus Vancomycin renally dosed nasal MRSA cultures positive (2) CHF exacerbation: Qualifiers: Heart failure type: unspecified Qualified Code(s): I50.9 - Heart failure, unspecified Code(s): I50.9 - Heart failure, unspecified Status: Chronic Assessment and Plan: Chest x-ray shows findings of mild congestive changes proBNP is markedly elevated compared to just last week. cautiously diuresed with close monitoring of volume status, renal function, electrolytes, and blood pressures (3) Chronic kidney disease: Code(s): N18.9 - Chronic kidney disease, unspecified Status: Chronic Assessment and Plan: worsening kidney function this morning, indicative or worsening or LEXUS creatinine 3.30, creatinine clearance 12, eGFR 13 Urinary output poor. bladder scan showed 17-19 ml. straight catheter got 50 ml for UA. renal US normal UA negative for infection nephrology consulted - appreciate input gentle IVF as PO intake is poor continue to monitor (4) Atrial fibrillation: Code(s): I48.91 - Unspecified atrial fibrillation Status: Chronic Assessment and Plan: IV metoprolol given this morning again for tachycardia and afib, non-symptomatic continue home amiodarone (5) Chronic anticoagulation: Code(s): Z79.01 - group home (current) use of anticoagulants Status: Chronic Assessment and Plan: continue Eliquis Subjective Date/time seen: 09/28/23 15:50 Interval history: Patient is visibly upset this morning, she has been on and off since her recently. She is essentially non-verbal this morning. Unsure of source of infection, as her urine was negative for infection. Due to MRSA and Staph on BC, likely a skin source although not visible thus far on exam. Pop inserted for strict I&O due to severely decreased urine output and worsening kidney function. Nephrology consulted for input. Will continue Vanc and renal dose. Monitor patient very closely. Review of Systems Review of Systems: ROS unobtainable: Yes unobtainable due to mental status Exam Narrative: General: Mildly ill-appearing elderly female, visibly upset. Neck: Supple. Exam limited due to positioning and neck circumference. No obvious JVD. Respiratory: Coarse lung sounds heard anteriorly with crackles at the bases. Cardiovascular: Irregular rhythm with S1-S2. Gastrointestinal: Abdomen is soft, obese, nontender, and nondistended with positive bowel sounds. Skin: Warm and dry. Chronic hyperpigmentation of the lower legs. Extremities: No cyanosis or clubbing. 2+ pitting edema softening towards the knees. Radial and pedal pulses intact. Neurological: Alert. Cranial nerves 2-12 are grossly intact. No gross focal deficits. Psychiatric: visibly upset this morning, non verbal. Objective Data Vital Signs Vital Signs: Vital Signs - 24 hr 09/27/23 16:00 09/27/23 21:13 09/27/23 21:43 Temperature 98.2 F Pulse Rate 114 H 125 H Respiratory Rate 24 H 26 H Blood Pressure 120/68 Pulse Oximetry 97 Oxygen Delivery BiPAP Oxygen Flow Rate 09/27/23 20:00 09/28/23 00:00 09/28/23 04:30 Temperature 97.3 F L Pulse Rate 130 H 125 H 122 H Respiratory Rate 26 H Blood Pressure Pulse Oximetry 98 Oxygen Delivery Oxygen Flow Rate 09/28/23 04:00 09/28/23 09:26 09/28/23 09:30 Temperature Pulse Rate 128 H 117 H 117 H Respiratory Rate Blood Pressure Pulse Oximetry Oxygen Delivery Oxygen Flow Rate 09/28/23 08:00 09/28/23 14:00 Temperature 97.1 F L Pulse Rate 104 H Respiratory
--- NOTE | 2023-09-28 16:30 | PM.CNNEP ---
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 on antibiotics (4) Influenza A: Code(s): J10.1 - Influenza due to other identified influenza virus with other respiratory manifestations Status: Acute Assessment and Plan: noted positivity by ER testing supplemental oxygen continue supportive therapy (5) CHF exacerbation: Qualifiers: Heart failure type: unspecified Qualified Code(s): I50.9 - Heart failure, unspecified Code(s): I50.9 - Heart failure, unspecified Status: Chronic Assessment and Plan: admission CXR noted elevated proBNP on admission s/p IV diuresis -- on hold now given #1 last echo noted (02/2023): Left ventricular systolic function is normal, estimated at 50-55%; left ventricular septal wall motion is abnormal with septal motion; related to bundle branch block; left atrial chamber dimension is mildly enlarged; there is mild tricuspid valve regurgitation. follow volume status (6) Essential hypertension: Code(s): I10 - Essential (primary) hypertension Status: Chronic Assessment and Plan: reasonable control at this time follow trend of hemodynamics (7) Dementia: Qualifiers: Dementia behavioral or psychological symptom: with mood disturbance Dementia severity: severe Dementia type: unspecified type Qualified Code(s): F03.C3 - Unspecified dementia, severe, with mood disturbance Code(s): F03.90 - Unspecified dementia, unspecified severity, without behavioral disturbance, psychotic disturbance, mood disturbance, and anxiety Status: Chronic Assessment and Plan: continue supportive care I will continue to follow the patient with you while she remains hospitalized to make further recommendations as deemed necessary. Thank you for allowing me to participate in the care this patient. History of Present Illness Reason for Consult Consult date: 09/28/23 Chief Complaint Chief complaint: CHF/Influenza A History of Present Illness Narrative: Most all the information that I have obtained is from review of the electronic medical record as well as discussion with the physician/ nurses involved in the patient's care as the patient is is is a somewhat poor historian and not able to communicate effectively at the time of my visit. The patient had 88-year-old female with a past medical history as outlined below who presented to [facility] Emergency room from her nursing facility for further evaluation of a fever. Apparently, for last few days, the patient has been feeling well in general and then spiked a fever 103 degrees on the day prior to admission. Outpatient evaluation at her nursing facility demonstrated chest x-ray that was concerning for pneumonia and given her symptoms an
--- NOTE | 2023-09-28 16:30 | P.CONNP_ITS ---
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 * on antibiotics (4) Influenza A: Code(s): J10.1 - Influenza due to other identified influenza virus with other respiratory manifestations Status: Acute Assessment and Plan: * noted positivity by ER testing * supplemental oxygen * continue supportive therapy (5) CHF exacerbation: Qualifiers: Heart failure type: unspecified Qualified Code(s): I50.9 - Heart failure, unspecified Code(s): I50.9 - Heart failure, unspecified Status: Chronic Assessment and Plan: * admission CXR noted * elevated proBNP on admission * s/p IV diuresis -- on hold now given #1 * last echo noted (02/2023): Left ventricular systolic function is normal, estimated at 50-55%; left ventricular septal wall motion is abnormal with septal motion; related to bundle branch block; left atrial chamber dimension is mildly enlarged; there is mild tricuspid valve regurgitation. * follow volume status (6) Essential hypertension: Code(s): I10 - Essential (primary) hypertension Status: Chronic Assessment and Plan: * reasonable control at this time * follow trend of hemodynamics (7) Dementia: Qualifiers: Dementia behavioral or psychological symptom: with mood disturbance Dementia severity: severe Dementia type: unspecified type Qualified Code(s): F03.C3 - Unspecified dementia, severe, with mood disturbance Code(s): F03.90 - Unspecified dementia, unspecified severity, without behavioral disturbance, psychotic disturbance, mood disturbance, and anxiety Status: Chronic Assessment and Plan: * continue supportive care I will continue to follow the patient with you while she remains hospitalized to make further recommendations as deemed necessary. Thank you for allowing me to participate in the care this patient. History of Present Illness Reason for Consult Consult date: 09/28/23 Chief Complaint Chief complaint: CHF/Influenza A History of Present Illness Narrative: Most all the information that I have obtained is from review of the electronic medical record as well as discussion with the physician/ nurses involved in the patient's care as the patient is is is a somewhat poor historian and not able to communicate effectively at the time of my visit. The patient h
[2023-09-28 17:16] LABS: Vancomycin Random 12.8 ug/mL (10-20)
[2023-09-28 18:28] LABS: Creatinine Urine 252.1 mg/dL; Total Protein Urine Random 61 mg/dL; Ur Ttl Prot Creatinine Ratio 0.24 mg/mg (0-0.20); Urea Random Urine 404 MG/DL
[2023-09-28 18:33] LABS: Sodium Urine Random 18 meq/L
[2023-09-28 18:38] LABS: Eosinophil Urine None Seen % (None Seen); Urine Eos QC 2nd Tech Confirmed
[2023-09-28] MEDS: VANCOMYCIN 1,000 MG/NS 250 ML 1,000 MG/250 ML BAG 250 MG IVPB (18:51)
[2023-09-29] VITALS (14 sets, daily range): BP systolic 102–116; BP diastolic 64–88; PULSE 44–139; RESP 16–31; TEMP 35.7–37.2; O2SAT 94–99
[2023-09-29 06:48] LABS: Hematocrit 35.4 % (37.0-47.0); Hemoglobin 10.7 g/dL (12.0-15.0); Immature Platelet Fraction Pct 7.9 % (0.9-11.2); Mean Corpuscular HGB Conc 30.2 g/dl (32-36); Mean Corpuscular Hemoglobin 29.6 pg (26-34); Mean Corpuscular Volume 97.8 fl (80-100); Mean Platelet Volume 12.5 fl (7.4-10.4); Platelet Count Result 60 k/mm3 (150-375); Red Blood Count 3.62 M/mm3 (4.2-5.4); Red Cell Distribution Width 15.6 % (11.5-14.5); White Blood Count 10.6 K/mm3 (4.5-10.0)
[2023-09-29 07:00] LABS: Albumin Level 2.5 g/dL (3.5-5.1); Anion Gap 8 mmol/L (8-16); Blood Urea Nitrogen 107 mg/dL (7-17); Calcium 8.3 mg/dL (8.4-10.2); Carbon Dioxide 22 mmol/L (22-30); Chloride 114 mmol/L (98-107); Estimated CRCL calculation 12 ml/min; Estimated Glomerular Filt Rate 12; Glucose 154 mg/dL (65-110); Phosphorus 3.3 mg/dL (2.5-4.5); Sodium 144 mmol/L (137-145)
[2023-09-29 08:34] LABS: Total Cells Counted 100
[2023-09-29 08:38] LABS: Band Neutrophils Percent 5 % (0-6); Neutrophils Absolute Manual 9.32 K/mm3 (1.7-7.2); Neutrophils Percent Manual 83 % (46-73)
[2023-09-29 08:39] LABS: Anisocytosis 1+ (NORMAL); Burr Cells 2+ (NORMAL); Lymphocytes Absolute Manual 0.84 K/mm3 (1.1-4.5); Lymphocytes Percent Manual 8 % (18-44); Monocytes Absolute Manual 0.42 K/mm3 (0.1-0.90); Monocytes Percent Manual 4 % (3-9); Platelet Estimate Decreased (Adequate); Schistocytes Rare (NORMAL); Smudge Cells PRESENT
[2023-09-29] MEDS: SPIRONOLACTONE 25 MG TABLET PO (09:17)
[2023-09-29] MEDS: APIXABAN 2.5 MG TABLET PO (09:17)
[2023-09-29] MEDS: AMIODARONE HCL 100 MG TABLET PO (09:17)
[2023-09-29 09:21] LABS: Lactic Acid Reflex 1.2 mmol/L (0.7-2.0)
--- NOTE | 2023-09-29 10:00 | PC.NURSE ---
Pt not tolerating PO medications. Attempted medications crushed and mixed with pudding but did not tolerate. MD aware.
--- NOTE | 2023-09-29 10:38 | PM.PNNEP ---
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 on antibiotics (4) Influenza A: Code(s): J10.1 - Influenza due to other identified influenza virus with other respiratory manifestations Status: Acute Assessment and Plan: noted positivity by ER testing supplemental oxygen continue supportive therapy (5) CHF exacerbation: Qualifiers: Heart failure type: unspecified Qualified Code(s): I50.9 - Heart failure, unspecified Code(s): I50.9 - Heart failure, unspecified Status: Chronic Assessment and Plan: admission CXR noted elevated proBNP on admission s/p IV diuresis -- on hold now given #1 last echo noted (02/2023): Left ventricular systolic function is normal, estimated at 50-55%; left ventricular septal wall motion is abnormal with septal motion; related to bundle branch block; left atrial chamber dimension is mildly enlarged; there is mild tricuspid valve regurgitation. follow volume status (6) Essential hypertension: Code(s): I10 - Essential (primary) hypertension Status: Chronic Assessment and Plan: reasonable control at this time follow trend of hemodynamics (7) Dementia: Qualifiers: Dementia type: unspecified type Dementia severity: severe Dementia behavioral or psychological symptom: with mood disturbance Qualified Code(s): F03.C3 - Unspecified dementia, severe, with mood disturbance Code(s): F03.90 - Unspecified dementia, unspecified severity, without behavioral disturbance, psychotic disturbance, mood disturbance, and anxiety Status: Chronic Assessment and Plan: continue supportive care Will continue to follow. Subjective Date/time seen: 09/29/23 10:38 Interval history: Follow-up for acute kidney injury/acute renal failure on chronic kidney disease. Her overall condition seems to be worsening/deteriorating -- mentation contineus to fluctuate with poor oral intake as well as poor urine output in conjunction with declining renal function; remains on gentle IVFs and antibiotics at this time. Exam Narrative: General: ill appearing female in NAD Heart: IRRR, normal S1 and S2; no rub Lungs: coarse wtih bibasilar crackles Abdomen: soft, nontender, nondistended, positive bowel sounds Extremities: no cyanosis or clubbing; 2+ edema Skin: warm and dry Objective Data Vital Signs Vital Signs: Vital Signs Temp Pulse Resp BP Pulse Ox O2 Del Method O2 Flow Rate 09/29/23 09:17 114 H 09/29/23 08:41 94 Nasal Cannula 3 09/29/23 06:00 96.3 F L 44 L 20 107/88 98 09/29/23 04:00 114 H 09/29/23 03:21 130 H 31 H 94 Nasal Cannula 4 09/29/23 03:14 130 H 31 H 94 BiPAP 09/29/23 00:00 113 H 09/28/23 20:00 110 H 01
--- NOTE | 2023-09-29 10:38 | P.PNNP_ITS ---
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 * on antibiotics (4) Influenza A: Code(s): J10.1 - Influenza due to other identified influenza virus with other respiratory manifestations Status: Acute Assessment and Plan: * noted positivity by ER testing * supplemental oxygen * continue supportive therapy (5) CHF exacerbation: Qualifiers: Heart failure type: unspecified Qualified Code(s): I50.9 - Heart failure, unspecified Code(s): I50.9 - Heart failure, unspecified Status: Chronic Assessment and Plan: * admission CXR noted * elevated proBNP on admission * s/p IV diuresis -- on hold now given #1 * last echo noted (02/2023): Left ventricular systolic function is normal, estimated at 50-55%; left ventricular septal wall motion is abnormal with septal motion; related to bundle branch block; left atrial chamber dimension is mildly enlarged; there is mild tricuspid valve regurgitation. * follow volume status (6) Essential hypertension: Code(s): I10 - Essential (primary) hypertension Status: Chronic Assessment and Plan: * reasonable control at this time * follow trend of hemodynamics (7) Dementia: Qualifiers: Dementia type: unspecified type Dementia severity: severe Dementia beh avioral or psychological symptom: with mood disturbance Qualified Code(s): F03.C3 - Unspecified dementia, severe, with mood disturbance Code(s): F03.90 - Unspecified dementia, unspecified severity, without behavioral dis turbance, psychotic disturbance, mood disturbance, and anxiety Status: Chronic Assessment and Plan: * continue supportive care Will continue to follow. Subjective Date/time seen: 09/29/23 10:38 Interval history: Follow-up for acute kidney injury/acute renal failure on chronic kidney disease. Her overall condition seems to be worsening/deteriorating -- mentation contineus to fluctuate with poor oral intake as well as poor urine output in conjunction with declining renal function; remains on gentle IVFs and antibiotics at this time. Exam Narrative: General: ill appearing female in NAD Heart: IRRR, normal S1 and S2; no rub Lungs: coarse wtih bibasilar crackles Abdomen: soft, nontender, nondistended, positive bowel sounds Extremiti
[2023-09-29] MEDS: EUCERIN CREAM 120 GM JAR 1 APPLIC TOPICAL (13:19)
--- NOTE | 2023-09-29 14:55 | P.PNIM_ITS ---
Progress Note: A&P Assessment and Plan (1) Influenza A: Code(s): J10.1 - Influenza due to other identified influenza virus with other respiratory manifestations Status: Acute Assessment and Plan: * positive for flu A * supportive measures * currently on 3L O2 which is not her baseline * BC showing staph aureus * Vancomycin renally dosed * nasal MRSA cultures positive (2) CHF exacerbation: Qualifiers: Heart failure type: unspecified Qualified Code(s): I50.9 - Heart failure, unspecified Code(s): I50.9 - Heart failure, unspecified Status: Chronic Assessment and Plan: * Chest x-ray shows findings of mild congestive changes * proBNP is markedly elevated compared to just last week. * cautiously diuresed with close monitoring of volume status, renal function, electrolytes, and blood pressures (3) Chronic kidney disease: Code(s): N18.9 - Chronic kidney disease, unspecified Status: Chronic Assessment and Plan: * worsening kidney function this morning, indicative or worsening or LEXUS * creatinine 3.30, creatinine clearance 12, eGFR 13 * Urinary output poor. bladder scan showed 17-19 ml. * straight catheter got 50 ml for UA. * renal US normal * UA negative for infection * nephrology consulted - appreciate input * gentle IVF as PO intake is poor * continue to monitor (4) Atrial fibrillation: Code(s): I48.91 - Unspecified atrial fibrillation Status: Chronic Assessment and Plan: * IV metoprolol given this morning again for tachycardia and afib, non- symptomatic * continue home amiodarone (5) Chronic anticoagulation: Code(s): Z79.01 - intermodal customer service (current) use of anticoagulants Status: Chronic Assessment and Plan: * continue Eliquis (6) Bacteremia: Code(s): R78.81 - Bacteremia Status: Acute Assessment and Plan: * BC showing MRSA * CT scan showed 5 mm subpleural nodule at the lingula new since study from one week prior favoring either atelectasis or infectious/inflammatory etiology. * pneumonia infection likely source * Vancomycin renally dosed * nasal MRSA cultures positive * lactic WNL * transient thrombocytopenia likely from infectious process * continue to closely monitor (7) LEXUS (acute kidney injury): Code(s): N17.9 - Acute kidney failure, unspecified Status: Acute Assessment and Plan: * worsening kidney function, indicative or worsening or LEXUS * creatinine 3.50, creatinine clearance 12, eGFR 12 * nephrology consulted - will closely monitor as significant improvement may not happen * discussion with family needed regarding status and possibility of dialysis (8) Chronic kidney disease, stage IV (severe): Code(s): N18.4 - Chronic kidney disease, stage 4 (severe) Status: Chronic Assessment and Plan: * see above Subjective Date/time seen: 09/29/23 14:55 Interval history: Patient is visibly upset this morning, she has been on and off since her recently. She is essentially non-verbal at this point. Due to MRSA and Staph on BC, CT scan w/o contrast was done and showed likely infectious process. Will continue current AB therapy. Pop inserted for strict I&O due to severely decreased urine output and worsening kidney function. Con't gentle IVF hydration as she is barely eating or drinking anything. Nephrology consulted for input and discussed today. We will continue to monitor and discuss with family as she may not see significant improvement in kidney functioning
--- NOTE | 2023-09-29 14:55 | PM.IMPN ---
Progress Note: A&P Assessment and Plan (1) Influenza A: Code(s): J10.1 - Influenza due to other identified influenza virus with other respiratory manifestations Status: Acute Assessment and Plan: positive for flu A supportive measures currently on 3L O2 which is not her baseline BC showing staph aureus Vancomycin renally dosed nasal MRSA cultures positive (2) CHF exacerbation: Qualifiers: Heart failure type: unspecified Qualified Code(s): I50.9 - Heart failure, unspecified Code(s): I50.9 - Heart failure, unspecified Status: Chronic Assessment and Plan: Chest x-ray shows findings of mild congestive changes proBNP is markedly elevated compared to just last week. cautiously diuresed with close monitoring of volume status, renal function, electrolytes, and blood pressures (3) Chronic kidney disease: Code(s): N18.9 - Chronic kidney disease, unspecified Status: Chronic Assessment and Plan: worsening kidney function this morning, indicative or worsening or LEXUS creatinine 3.30, creatinine clearance 12, eGFR 13 Urinary output poor. bladder scan showed 17-19 ml. straight catheter got 50 ml for UA. renal US normal UA negative for infection nephrology consulted - appreciate input gentle IVF as PO intake is poor continue to monitor (4) Atrial fibrillation: Code(s): I48.91 - Unspecified atrial fibrillation Status: Chronic Assessment and Plan: IV metoprolol given this morning again for tachycardia and afib, non-symptomatic continue home amiodarone (5) Chronic anticoagulation: Code(s): Z79.01 - intermediate designer (current) use of anticoagulants Status: Chronic Assessment and Plan: continue Eliquis (6) Bacteremia: Code(s): R78.81 - Bacteremia Status: Acute Assessment and Plan: BC showing MRSA CT scan showed 5 mm subpleural nodule at the lingula new since study from one week prior favoring either atelectasis or infectious/inflammatory etiology. pneumonia infection likely source Vancomycin renally dosed nasal MRSA cultures positive lactic WNL transient thrombocytopenia likely from infectious process continue to closely monitor (7) LEXUS (acute kidney injury): Code(s): N17.9 - Acute kidney failure, unspecified Status: Acute Assessment and Plan: worsening kidney function, indicative or worsening or LEXUS creatinine 3.50, creatinine clearance 12, eGFR 12 nephrology consulted - will closely monitor as significant improvement may not happen discussion with family needed regarding status and possibility of dialysis (8) Chronic kidney disease, stage IV (severe): Code(s): N18.4 - Chronic kidney disease, stage 4 (severe) Status: Chronic Assessment and Plan: see above Subjective Date/time seen: 09/29/23 14:55 Interval history: Patient is visibly upset this morning, she has been on and off since her recently. She is essentially non-verbal at this point. Due to MRSA and Staph on BC, CT scan w/o contrast was done and showed likely infectious process. Will continue current AB therapy. Pop inserted for strict I&O due to severely decreased urine output and worsening kidney function. Con't gentle IVF hydration as she is barely eating or drinking anything. Nephrology consulted for input and discussed today. We will continue to monitor and discuss with family as she may not see significant improvement in kidney functioning due to infection. Repeat BC drawn this morning. Monitor patient very closely. Review of Systems Review of Systems: ROS unobtainable: Yes unobtainable due to mental status Exam Narrative: General: Mildly ill-appearing elderly female, visibly upset. Neck: Supple. Exam limited due to positioning and neck circumference. No obvious JVD. Respiratory: Coarse lung sounds heard anteriorly with crackles at the b
[2023-09-29 18:48] LABS: Vancomycin Random 19.1 ug/mL (10-20)
[2023-09-29] MEDS: MORPHINE SULFATE (*CRX) 2 MG/ML INJ IV PUSH (20:29)
--- NOTE | 2023-09-29 21:49 | PM.EVENT ---
Event Note Event Note Event Note: Cross Coverage: Family very distressed and wishing to speak with the rounding provider. Bedside RN spoke extensively with family and majority of concerns coming from family's concern for patient's obvious discomfort. Ordered 1 time dose of 2 of morphine IVP, tolerated well and no increased somnolence. Family open to discussing hospice care if patient's current condition warrants. Requesting discussion with rounding provider tomorrow, available by cellphone from 06-11. Patient now also experiencing muscle contractions that are visible per bedside RN. Reviewed electrolytes, does have hypocalcemia however it is in the setting of hypoalbuminemia and when corrected for the low albumin levels it is within normal limits. No other obvious electrolyte derangements. Does currently have LEXUS in the setting of CKD. Currently receiving IV fluids via slow infusion due to current concern for a/c CHF. Will trial 1 time dose of 5 IV of Valium for muscle cramping. Patient currently not able to tolerate p.o. and has been unable to take her home medications today. Due to not being able to take medications, she is currently in AFib with a rate greater than 130. Metoprolol 5 IVP Q4H p.r.n. for tachyarrhythmia ordered.
[2023-09-29] MEDS: diazePAM INJ (*CRX) 10 MG/2 ML SYRINGE 5 MG IV PUSH (22:23)
[2023-09-29] MEDS: VANCOMYCIN 1,000 MG/NS 250 ML 1,000 MG/250 ML BAG 250 MG IVPB (22:26)
[2023-09-29] MEDS: METOPROLOL TARTRATE INJ 5 MG/5 ML VIAL IV PUSH (22:26)
--- NOTE | 2023-09-29 23:03 | PC.NURSE ---
This nurse has spent an extensive amount of time with family and pt, due to pt being in pain and family being upset. Spoke with Sofie and was able to get IV pain medication and educate family. Family is requesting a phone call from the day provider between 11-1pm to discuss pt care. Pt is now resting comfortably and family appears calm and understanding at this time.
[2023-09-29] MEDS: SODIUM CHLORIDE 0.9% IV 1,000 ML 100 ML IV CONT (23:13)
[2023-09-30] VITALS (7 sets, daily range): BP systolic 107–139; BP diastolic 60–77; PULSE 115–135; RESP 16–24; TEMP 36.4–36.7; O2SAT 97–100
[2023-09-30] MEDS: MORPHINE SULFATE (*CRX) 2 MG/ML INJ IV PUSH ×2 (00:31→05:19)
--- NOTE | 2023-09-30 05:51 | PC.NURSE ---
This nurse was in pt's room multiple times throughout the night, checking on her. IV pain medicine appears to be improving pt's comfort, however she becomes very restless and will moan/cry as it wears off and before her next dose is due. Pt had a one time dose of valium this shift, which helped her relax enough to rest for a couple hours comfortably. Pt's family is very clear that they want her kept comfortable and want to discuss options with the day provider. Pt does not tolerate turning or moving well, and will scream out when rolling or having any basic care provided. Pt has had elevated HR which had been sustaining in the 130's before IV pain medication was initiated this shift. Pt will continue to benefit from ongoing pain control efforts and family education.
[2023-09-30 06:17] LABS: Basophils Percent Auto 0.1 % (0.2-1.2); Eosinophils Percent Auto 0.1 % (0-4.4); Hematocrit 34.1 % (37.0-47.0); Hemoglobin 10.3 g/dL (12.0-15.0); Immature Granulocyte Absolute 0.07 K/mm3 (0.00-0.031); Immature Granulocyte Percent A 0.8 % (0-0.5); Immature Platelet Fraction Pct 4.9 % (0.9-11.2); Lymphocytes Absolute Auto 0.88 K/mm3 (0.9-3.2); Lymphocytes Percent Auto 10.2 % (18.3-44.2); Mean Corpuscular HGB Conc 30.2 g/dl (32-36); Mean Corpuscular Hemoglobin 29.8 pg (26-34); Mean Corpuscular Volume 98.6 fl (80-100); Monocytes Absolute Auto 0.8 K/mm3 (0.1-0.6); Monocytes Percent Auto 9.4 % (2.6-8.5); Neutrophils Absolute Auto 6.9 K/mm3 (1.3-6.7); Neutrophils Percent Auto 79.4 % (45.5-73.1); Nucleated Red Blood Cells Perc 0.2 % (0.0-0.2); Platelet Count Result 48 k/mm3 (150-375); Red Blood Count 3.46 M/mm3 (4.2-5.4); Red Cell Distribution Width 15.8 % (11.5-14.5); White Blood Count 8.7 K/mm3 (4.5-10.0)
[2023-09-30 06:52] LABS: Burr Cells 2+ (NORMAL); Ovalocytes 1+ (NORMAL); Platelet Estimate Decreased (Adequate); Schistocytes None Seen (NORMAL)
[2023-09-30 06:53] LABS: Helmet Cells 1+ (NORMAL)
[2023-09-30 07:19] LABS: Anion Gap 8 mmol/L (8-16); Blood Urea Nitrogen 120 mg/dL (7-17); Calcium 8.2 mg/dL (8.4-10.2); Carbon Dioxide 18 mmol/L (22-30); Chloride 121 mmol/L (98-107); Creatine Kinase 92 U/L (30-135); Estimated CRCL calculation 14 ml/min; Estimated Glomerular Filt Rate 15; Glucose 104 mg/dL (65-110); Potassium 5.8 mmol/L (3.4-5.0); Sodium 147 mmol/L (137-145)
[2023-09-30 07:27] LABS: Hepatitis B Surface Antigen Negative (Negative)
[2023-09-30 07:45] LABS: Hepatitis B Surface Anti Res Negative
[2023-09-30] MEDS: SODIUM BICARBONATE 8.4% 100 MEQ in DEXTROSE 5% 1,000 ML 1,000 ML IV CONT (09:29)
--- NOTE | 2023-09-30 10:41 | PM.PNNEP ---
Progress Note: A&P Assessment and Plan (1) LEXUS (acute kidney injury): Code(s): N17.9 - Acute kidney failure, unspecified Status: Acute (2) Chronic kidney disease, stage IV (severe): Code(s): N18.4 - Chronic kidney disease, stage 4 (severe) Status: Chronic (3) Bacteremia: Code(s): R78.81 - Bacteremia Status: Acute (4) Influenza A: Code(s): J10.1 - Influenza due to other identified influenza virus with other respiratory manifestations Status: Acute (5) CHF exacerbation: Qualifiers: Heart failure type: unspecified Qualified Code(s): I50.9 - Heart failure, unspecified Code(s): I50.9 - Heart failure, unspecified Status: Chronic (6) Essential hypertension: Code(s): I10 - Essential (primary) hypertension Status: Chronic (7) Dementia: Qualifiers: Dementia type: unspecified type Dementia severity: severe Dementia behavioral or psychological symptom: with mood disturbance Qualified Code(s): F03.C3 - Unspecified dementia, severe, with mood disturbance Code(s): F03.90 - Unspecified dementia, unspecified severity, without behavioral disturbance, psychotic disturbance, mood disturbance, and anxiety Status: Chronic Plan family has chosen to proceed with comfort care measures no further testing to be done will follow from a distance Subjective Date/time seen: 09/30/23 10:41 Interval history: Follow-up for acute kidney injury/acute renal failure on chronic kidney disease. Patient's overall condition, including renal failure, continue to deteriorate; noted issues overnight with increasing discomfort in association with muscle spasms requiring IV morphine and IV valium; a bit more urine output noted but BUN, creatinine and potassium have worsened; informed by nursing that family has transitioned care to comfort care measures. Exam Narrative: General: ill appearing female in NAD but non-verbal Heart: tachycardic, normal S1 and S2; no rub Lungs: coarse with bibasilar crackles Abdomen: soft, nontender, nondistended, positive bowel sounds Extremities: no cyanosis or clubbing; 2+ edema Skin: warm and intact Objective Data Vital Signs Vital Signs: Vital Signs Temp Pulse Resp BP Pulse Ox O2 Del Method O2 Flow Rate 09/30/23 10:36 98.1 F 120 H 22 H 107/72 97 09/30/23 08:00 122 H 09/30/23 08:00 Nasal Cannula 3 09/30/23 05:15 97.5 F L 135 H 20 139/60 99 09/30/23 04:00 120 H 09/30/23 00:25 97.5 F L 126 H 16 122/77 100 09/30/23 00:00 117 H 09/29/23 20:00 128 H 09/30/23 00:51 115 H 24 H 98 BiPAP 09/29/23 22:00 113 H 24 H 99 BiPAP 09/29/23 22:35 99 F 136 H 18 102/64 09/29/23 20:00 96 Nasal Cannula 3 09/29/23 16:00 126 H Intake/Output Intake/Output: Intake & Output 09/27/23 09/28/23 09/29/23 09/30/23 23:59 23:59 23:59 23:59 Intake Total 490 1000 1100 Output Total 325 500 475 Balance 165 1000 600 -475 Meds/Results Medications: Active Medications Generic Name Dose Route Start Last Admin Trade Name Freq PRN Reason Stop Dose Admin Albuterol/Ipratropium 3 ml 09/27/23 00:50 09/27/23 02:27 Ipratropium 0.5 Mg/Albuterol Sulfate 2.5 Mg Ampul.Neb 3 Ml INHALATION 3 ml QIDRT PRN Administration Shortness Of Breath Or Wheezin Artificial Tears 1 drop 09/30/23 12:36 Artificial Tears Ophth Soln 15 Ml Bottle EACH EYE Q4H PRN Dry Eye(s) Atropine Sulfate 1 drop 09/30/23 12:36 Atropine Sulfate 1% Ophth Soln 5 Ml Bottle SUBLINGUAL Q4H PRN Secretions Hydrocortisone 1 applic 09/27/23 00:50 Hydrocortisone 2.5% Cream 30 Gm Tube TOPICAL BID PRN Itching Lorazepam 1 mg 09/30/23 12:36 09/30/23 13:07 Lorazepam Inj (*Crx) 2 Mg/Ml Vial IV PUSH 1 mg Q2H PRN Administration Anxiety or air hunger Metoprolol Tartrate 5 mg 09/11
[2023-09-30 12:01] LABS: Anion Gap 7 mmol/L (8-16); Blood Urea Nitrogen 113 mg/dL (7-17); Calcium 8.4 mg/dL (8.4-10.2); Carbon Dioxide 21 mmol/L (22-30); Chloride 120 mmol/L (98-107); Estimated CRCL calculation 13 ml/min; Estimated Glomerular Filt Rate 14; Glucose 129 mg/dL (65-110); Potassium 4.7 mmol/L (3.4-5.0); Sodium 148 mmol/L (137-145)
[2023-09-30] MEDS: KETOROLAC 30 MG/ML VIAL (*BKC) IV PUSH (13:06)
[2023-09-30] MEDS: MUPIROCIN 2% OINT 22 GM TUBE 1 APPLIC TOPICAL (13:07)
[2023-09-30] MEDS: LORazepam INJ (*CRX) 2 MG/ML VIAL 1 MG IV PUSH (13:07)
--- NOTE | 2023-09-30 13:41 | PC.NURSE ---
Oral care performed by this RN. Wiped pt's face, brushed pt's hair, re-positioned in bed and pt appears comfortable. Comfort care orders have been entered. Awaiting news from CC regarding hospice status. PRN 1mg Ativan given as well as 30mg Ketorolac x1. Telemetry and maintenance fluids discontinued per comfort care protocol. 3L nasal cannula still noted for comfort.
--- NOTE | 2023-09-30 14:19 | P.PNIM_ITS ---
Progress Note: A&P Assessment and Plan (1) Influenza A: Code(s): J10.1 - Influenza due to other identified influenza virus with other respiratory manifestations Status: Acute Assessment and Plan: * positive for flu A * currently on 3L O2 which is not her baseline * BC showing staph aureus * Vancomycin renally dosed now stopped * nasal MRSA cultures positive (2) CHF exacerbation: Qualifiers: Heart failure type: unspecified Qualified Code(s): I50.9 - Heart failure, unspecified Code(s): I50.9 - Heart failure, unspecified Status: Chronic Assessment and Plan: * Chest x-ray shows findings of mild congestive changes * proBNP is markedly elevated compared to just last week. * cautiously diuresed with close monitoring of volume status, renal function, electrolytes, and blood pressures (3) Chronic kidney disease: Code(s): N18.9 - Chronic kidney disease, unspecified Status: Chronic Assessment and Plan: * worsening kidney function this morning, indicative or worsening or LEXUS * creatinine 3.30, creatinine clearance 12, eGFR 13 * Urinary output poor. bladder scan showed 17-19 ml. * straight catheter got 50 ml for UA. * renal US normal * UA negative for infection * nephrology consulted * gentle IVF as PO intake is poor - now stopped * continue to monitor (4) Atrial fibrillation: Code(s): I48.91 - Unspecified atrial fibrillation Status: Chronic Assessment and Plan: * IV metoprolol given this morning again for tachycardia and afib, non-sympt omatic * continue home amiodarone - now stopped (5) Chronic anticoagulation: Code(s): Z79.01 - intermodal truck driver (current) use of anticoagulants Status: Chronic Assessment and Plan: * now stopped Eliquis (6) Bacteremia: Code(s): R78.81 - Bacteremia Status: Acute Assessment and Plan: * BC showing MRSA * CT scan showed 5 mm subpleural nodule at the lingula new since study from one week prior favoring either atelectasis or infectious/inflammatory etiology. * pneumonia infection likely source * Vancomycin renally dosed - now stopped * nasal MRSA cultures positive * lactic WNL * transient thrombocytopenia likely from infectious process (7) LEXUS (acute kidney injury): Code(s): N17.9 - Acute kidney failure, unspecified Status: Acute Assessment and Plan: * worsening kidney function, indicative or worsening or LEXUS * nephrology consulted (8) Chronic kidney disease, stage IV (severe): Code(s): N18.4 - Chronic kidney disease, stage 4 (severe) Status: Chronic Assessment and Plan: * see above Plan Comfort measures only. all other interventions d/c. evaluation for inpatient hospice pending. Subjective Date/time seen: 09/30/23 14:19 Interval history: Patient condition continues to decline. She had a rough night in which she n eeded IV pain medication started and IV Valium given for likely muscle spasming. After attempting 4+ times over the past 2 days to get in touch with the family and POA, I was finally able to have a lengthy conversation with NIKITA and her daughter, Irish, regarding the patient condition, prognosis and hospice. Patient family would like to go forward with hospice at this time. Discussed comfort measures, confirmed they understood we will be stopping all further treatment and evaluation and will focus on making patient comfortable. Care coordination consulted for hospice evaluation. Patient would likely qualify for in-patient hospice.
--- NOTE | 2023-09-30 14:19 | PM.IMPN ---
Progress Note: A&P Assessment and Plan (1) Influenza A: Code(s): J10.1 - Influenza due to other identified influenza virus with other respiratory manifestations Status: Acute Assessment and Plan: positive for flu A currently on 3L O2 which is not her baseline BC showing staph aureus Vancomycin renally dosed now stopped nasal MRSA cultures positive (2) CHF exacerbation: Qualifiers: Heart failure type: unspecified Qualified Code(s): I50.9 - Heart failure, unspecified Code(s): I50.9 - Heart failure, unspecified Status: Chronic Assessment and Plan: Chest x-ray shows findings of mild congestive changes proBNP is markedly elevated compared to just last week. cautiously diuresed with close monitoring of volume status, renal function, electrolytes, and blood pressures (3) Chronic kidney disease: Code(s): N18.9 - Chronic kidney disease, unspecified Status: Chronic Assessment and Plan: worsening kidney function this morning, indicative or worsening or LEXUS creatinine 3.30, creatinine clearance 12, eGFR 13 Urinary output poor. bladder scan showed 17-19 ml. straight catheter got 50 ml for UA. renal US normal UA negative for infection nephrology consulted gentle IVF as PO intake is poor - now stopped continue to monitor (4) Atrial fibrillation: Code(s): I48.91 - Unspecified atrial fibrillation Status: Chronic Assessment and Plan: IV metoprolol given this morning again for tachycardia and afib, non-symptomatic continue home amiodarone - now stopped (5) Chronic anticoagulation: Code(s): Z79.01 - longterm (current) use of anticoagulants Status: Chronic Assessment and Plan: now stopped Eliquis (6) Bacteremia: Code(s): R78.81 - Bacteremia Status: Acute Assessment and Plan: BC showing MRSA CT scan showed 5 mm subpleural nodule at the lingula new since study from one week prior favoring either atelectasis or infectious/inflammatory etiology. pneumonia infection likely source Vancomycin renally dosed - now stopped nasal MRSA cultures positive lactic WNL transient thrombocytopenia likely from infectious process (7) LEXUS (acute kidney injury): Code(s): N17.9 - Acute kidney failure, unspecified Status: Acute Assessment and Plan: worsening kidney function, indicative or worsening or LEXUS nephrology consulted (8) Chronic kidney disease, stage IV (severe): Code(s): N18.4 - Chronic kidney disease, stage 4 (severe) Status: Chronic Assessment and Plan: see above Plan Comfort measures only. all other interventions d/c. evaluation for inpatient hospice pending. Subjective Date/time seen: 09/30/23 14:19 Interval history: Patient condition continues to decline. She had a rough night in which she needed IV pain medication started and IV Valium given for likely muscle spasming. After attempting 4+ times over the past 2 days to get in touch with the family and NIKITA, I was finally able to have a lengthy conversation with NIKITA and her daughter, Irish, regarding the patient condition, prognosis and hospice. Patient family would like to go forward with hospice at this time. Discussed comfort measures, confirmed they understood we will be stopping all further treatment and evaluation and will focus on making patient comfortable. Care coordination consulted for hospice evaluation. Patient would likely qualify for in-patient hospice. Review of Systems Review of Systems: ROS unobtainable: Yes unobtainable due to mental status Exam Narrative: General: Mildly ill-appearing elderly female, visibly upset. Neck: Supple. Exam limited due to positioning and neck circumference. No obvious JVD. Respiratory: Coarse lung sounds heard anteriorly with crackles at the bases. Cardiovascular: Irregular rhythm with S1-S2. Gastrointestinal: Abdomen is sof
--- NOTE | 2023-10-13 08:32 | P.DS_ITS ---
DS: Admitting Diagnosis Discharge Date 09/30/23 Admitting Diagnosis fever DS: Discharge Diagnosis Discharge Diagnosis (1) Influenza A: Code(s): J10.1 - Influenza due to other identified influenza virus with other respiratory manifestations Status: Acute Assessment and Plan: * positive for flu A * currently on 3L O2 which is not her baseline * BC showing staph aureus * Vancomycin renally dosed now stopped * nasal MRSA cultures positive (2) CHF exacerbation: Qualifiers: Heart failure type: unspecified Qualified Code(s): I50.9 - Heart failure, unspecified Code(s): I50.9 - Heart failure, unspecified Status: Chronic Assessment and Plan: * Chest x-ray shows findings of mild congestive changes * proBNP is markedly elevated compared to just last week. * cautiously diuresed with close monitoring of volume status, renal function, electrolytes, and blood pressures (3) Chronic kidney disease: Code(s): N18.9 - Chronic kidney disease, unspecified Status: Chronic Assessment and Plan: * worsening kidney function this morning, indicative or worsening or LEXUS * creatinine 3.30, creatinine clearance 12, eGFR 13 * Urinary output poor. bladder scan showed 17-19 ml. * straight catheter got 50 ml for UA. * renal US normal * UA negative for infection * nephrology consulted * gentle IVF as PO intake is poor - now stopped * continue to monitor (4) Atrial fibrillation: Code(s): I48.91 - Unspecified atrial fibrillation Status: Chronic Assessment and Plan: * IV metoprolol given this morning again for tachycardia and afib, non-s ymptomatic * continue home amiodarone - now stopped (5) Chronic anticoagulation: Code(s): Z79.01 - longterm (current) use of anticoagulants Status: Chronic Assessment and Plan: * now stopped Eliquis (6) Bacteremia: Code(s): R78.81 - Bacteremia Status: Acute Assessment and Plan: * BC showing MRSA * CT scan showed 5 mm subpleural nodule at the lingula new since study from one week prior favoring either atelectasis or infectious/inflammatory etiology. * pneumonia infection likely source * Vancomycin renally dosed - now stopped * nasal MRSA cultures positive * lactic WNL * transient thrombocytopenia likely from infectious process (7) LEXUS (acute kidney injury): Code(s): N17.9 - Acute kidney failure, unspecified Status: Acute Assessment and Plan: * worsening kidney function, indicative or worsening or LEXUS (8) Chronic kidney disease, stage IV (severe): Code(s): N18.4 - Chronic kidney disease, stage 4 (severe) Status: Chronic Assessment and Plan: * see above Plan Patient was made comfort measures only after long discussion with patient's daughter and granddaughter, evaluation for inpatient hospice ordered and completed by Dr. Robb. D/C to hospice care. DS: Summary Hospital Course Hospital Course: Patient condition continues to decline. She had a rough night in which she needed IV pain medication started and IV Valium given for likely muscle spasming. After attempting 4+ times over the past 2 days to get in touch with the family and POA, I was finally able to have a lengthy conversation with NIKITA and her daughter, Irish, regarding the patient condition, prognosis and hospice. Patient family would like to go forward with hospice at this time. Discussed comfort measures, confirmed they understood we will be stopping all further treatment and evaluation
--- NOTE | 2023-10-13 08:32 | PM.DS ---
DS: Admitting Diagnosis Discharge Date 09/30/23 Admitting Diagnosis fever DS: Discharge Diagnosis Discharge Diagnosis (1) Influenza A: Code(s): J10.1 - Influenza due to other identified influenza virus with other respiratory manifestations Status: Acute Assessment and Plan: positive for flu A currently on 3L O2 which is not her baseline BC showing staph aureus Vancomycin renally dosed now stopped nasal MRSA cultures positive (2) CHF exacerbation: Qualifiers: Heart failure type: unspecified Qualified Code(s): I50.9 - Heart failure, unspecified Code(s): I50.9 - Heart failure, unspecified Status: Chronic Assessment and Plan: Chest x-ray shows findings of mild congestive changes proBNP is markedly elevated compared to just last week. cautiously diuresed with close monitoring of volume status, renal function, electrolytes, and blood pressures (3) Chronic kidney disease: Code(s): N18.9 - Chronic kidney disease, unspecified Status: Chronic Assessment and Plan: worsening kidney function this morning, indicative or worsening or LEXUS creatinine 3.30, creatinine clearance 12, eGFR 13 Urinary output poor. bladder scan showed 17-19 ml. straight catheter got 50 ml for UA. renal US normal UA negative for infection nephrology consulted gentle IVF as PO intake is poor - now stopped continue to monitor (4) Atrial fibrillation: Code(s): I48.91 - Unspecified atrial fibrillation Status: Chronic Assessment and Plan: IV metoprolol given this morning again for tachycardia and afib, non-symptomatic continue home amiodarone - now stopped (5) Chronic anticoagulation: Code(s): Z79.01 - tank terminal gauger (current) use of anticoagulants Status: Chronic Assessment and Plan: now stopped Eliquis (6) Bacteremia: Code(s): R78.81 - Bacteremia Status: Acute Assessment and Plan: BC showing MRSA CT scan showed 5 mm subpleural nodule at the lingula new since study from one week prior favoring either atelectasis or infectious/inflammatory etiology. pneumonia infection likely source Vancomycin renally dosed - now stopped nasal MRSA cultures positive lactic WNL transient thrombocytopenia likely from infectious process (7) LEXUS (acute kidney injury): Code(s): N17.9 - Acute kidney failure, unspecified Status: Acute Assessment and Plan: worsening kidney function, indicative or worsening or LEXUS (8) Chronic kidney disease, stage IV (severe): Code(s): N18.4 - Chronic kidney disease, stage 4 (severe) Status: Chronic Assessment and Plan: see above Plan Patient was made comfort measures only after long discussion with patient's daughter and granddaughter, evaluation for inpatient hospice ordered and completed by Dr. Robb. D/C to hospice care. DS: Summary Hospital Course Hospital Course: Patient condition continues to decline. She had a rough night in which she needed IV pain medication started and IV Valium given for likely muscle spasming. After attempting 4+ times over the past 2 days to get in touch with the family and POA, I was finally able to have a lengthy conversation with POConnor and her daughter, Irish, regarding the patient condition, prognosis and hospice. Patient family would like to go forward with hospice at this time. Discussed comfort measures, confirmed they understood we will be stopping all further treatment and evaluation and will focus on making patient comfortable. Care coordination consulted for hospice evaluation. Dr. Robb evaluated and resumed her care for inpatient hospice late in the day on 09/30/23. d/c to hospice for duration of care. Status at Discharge Functional status at discharge: bed bound Overall status at discharge: patient is not back to baseline Time Spent with Patient Time attestation: Total time spent providing and/or coordin
== END 2023-09-30 17:22 | disposition hospice, home (50) | DRG 193 ==
LOC: ANHED 17:59 → ANH3MEDSUR 19:35
PROVIDERS: Internal Medicine Nephrology; Physician Assistant; Admitting Provider Student in an Organized Health Care Education/Training Program; Emergency Provider Emergency Medicine; PCP Hospitalist; Visit Provider Nurse Practitioner
DX: J10.08 Influenza due to other identified influenza virus with other specified pneumonia (principal); E43 Unspecified severe protein-calorie malnutrition; I13.0 Hypertensive heart and chronic kidney disease with heart failure and stage 1 through stage 4 chronic kidney disease, or unspecified chronic kidney disease; I48.20 Chronic atrial fibrillation, unspecified; N18.4 Chronic kidney disease, stage 4 (severe); N17.9 Acute kidney failure, unspecified; R78.81 Bacteremia; J15.9 Unspecified bacterial pneumonia; E83.51 Hypocalcemia; I50.9 Heart failure, unspecified; Z20.822 Contact with and (suspected) exposure to COVID-19; E78.5 Hyperlipidemia, unspecified; G47.33 Obstructive sleep apnea (adult) (pediatric); G30.9 Alzheimer's disease, unspecified; F02.80 Dementia in other diseases classified elsewhere, unspecified severity, without behavioral disturbance, psychotic disturbance, mood disturbance, and anxiety; B95.62 Methicillin resistant Staphylococcus aureus infection as the cause of diseases classified elsewhere; G89.4 Chronic pain syndrome; D69.59 Other secondary thrombocytopenia; E66.9 Obesity, unspecified; Z68.34 Body mass index [BMI] 34.0-34.9, adult; Z86.718 Personal history of other venous thrombosis and embolism; Z79.01 Long term (current) use of anticoagulants; Z79.82 Long term (current) use of aspirin; Z86.16 Personal history of COVID-19; Z51.5 Encounter for palliative care; Z96.651 Presence of right artificial knee joint; Z90.710 Acquired absence of both cervix and uterus; Z90.722 Acquired absence of ovaries, bilateral; D50.9 Iron deficiency anemia, unspecified
CPT/HCPCS: 36415; 71045; 71250; 73060; 74176; 76705; 76775; 78582; 80048; 80053; 80069; 80202; 81001; 81050; 82550; 82570; 83605; 83735; 83880; 84156; 84300; 84540; 85025; 85027; 85055; 85999; 86706; 87040; 87147; 87186; 87340; 87637; 87641; 92526; 92610; 93005; 94640; 96365; 96375; 96376; 99285; A9270; A9540; A9558; G0378; J0456; J0696; J1885; J1940; J2060; J2270; J3360; J3370; J7030; J7070

== ENCOUNTER 2023-09-30 17:23 | HOS | payer OTHER, SELFPAY ==
--- NOTE | 2023-09-30 18:16 | PM.IMHP ---
H&P: HPI History of Present Illness Date/Time: 09/30/23 18:16 Chief Complaint: Uncontrolled Pain Narrative: This unfortunate 88-year-old female was admitted to [facility] September 26 with shortness of breath. Outpatient chest x-ray suggested left lower lobe infiltrate. This was confirmed on admission chest x-ray. She also tested positive for influenza A. She was treated with ceftriaxone and azithromycin initially. However blood cultures grew MRSA. Vancomycin was initiated on September 27 dosed with renal protocol. Her creatinine did worsen SI assist 3.5 from baseline of 1.5. She became less interactive more confused and was complaining and moaning in pain with any care or touching. Occasionally she would spontaneously moan in pain. She was restless and confused. Because of her underlying dementia and failure to improve with appropriate medical therapy her family opted for inpatient hospice for symptom management. Review of Systems Review of Systems: ROS unobtainable: Yes unobtainable due to medical condition PMFSH Past Medical History Medical History (Updated 09/30/23 @ 18:20 by Don Robb MD) Acute respiratory failure with hypoxia Alzheimer's disease, unspecified Anemia, unspecified Arthritis of elbow, right, degenerative Atherosclerotic heart disease Cellulitis of left lower limb CHF (congestive heart failure) Echocardiogram 02/10/2023: EF 50-55%, septal wall motion abnormality related to bundle-branch block, mild left atrial enlargement, mild tricuspid regurgitation, grade 1 diastolic dysfunction Chronic atrial fibrillation, unspecified Chronic kidney disease, stage 3b Chronic systolic (congestive) heart failure Chronic venous stasis dermatitis of both lower extremities Closed fracture of right proximal humerus (02/2023) Constipation Degenerative arthritis of right shoulder region Dementia Depression DVT (deep venous thrombosis) 10/19/22 Left lower extremity venous Doppler showed DVT involving left femoral vein. Previously on Eliquis with dose increased. Essential hypertension Generalized osteoarthritis History of 2019 novel coronavirus disease (COVID-19) History of atrial fibrillation Hyperlipidemia Hypokalemia Insomnia Major depressive disorder, recurrent, moderate Obesity GRADY on CPAP Sepsis Unspecified hemorrhoids Vitamin D deficiency Surgical History Surgical History History of total hysterectomy with bilateral salpingo-oophorectomy (BSO) History of total right knee replacement S/P insertion of IVC (inferior vena caval) filter Family History Family History (Updated 09/30/23 @ 18:18 by Don Robb MD) Other Unknown family medical history Social History Social History (Updated 09/30/23 @ 18:18 by Don Robb MD) Social History: Lives at [facility] in [place]. Recently . Smoked briefly as a teenager. No alcohol use. Code status: DNR Smoking status: Never smoker Second hand tobacco smoke exposure: No Alcohol intake: never Substance use: never Substance use type: does not use Do You Feel Safe in your Home?: Yes Lack of Transportation: No Lack of Food: Never True Current Housing: I Have Housing Concerned About Future Housing: No Difficulty Paying Gas/Electric Bills: No Difficulty Paying for Meds: No Currently Unemployed: No Education: Don't Know Difficulty w/ Childcare or Family Care: No Spiritual care concerns: No Meds Home Medications and Allergies Home Medications Medication Instructions Recorded Confirmed Type hydrocodone 7.5 mg-acetaminophen 1 tablet PO Q8H PRN Pain (Scale 09/19/23 09/26/23 History 325 mg tablet Score 6-10) Allergies Allergy/AdvReac Type Severity Reaction Status Date / Time codeine Allergy Other Verified 09/19/23 17:33 Exam Narrative: HEENT: Pharyngeal mucosa pink and intact NECK: No JVD CHEST: S
[2023-09-30] MEDS: HYDROmorphone HCL/PF (*CRX) 50 MG in SODIUM CHLORIDE 0.9% IV 95 ML IV CONT (19:33)
[2023-09-30 20:00] VITALS: O2SAT 96
[2023-09-30 22:00] VITALS: BP 114/68; PULSE 130; RESP 20; TEMP 35.8; O2SAT 100
[2023-10-01] MEDS: diazePAM INJ (*CRX) 10 MG/2 ML SYRINGE 5 MG IV PUSH ×2 (02:40→21:02)
[2023-10-01 07:45] VITALS: O2SAT 96
[2023-10-01 08:00] VITALS: BP 74/56; PULSE 119; RESP 20; TEMP 36.6; O2SAT 99
--- NOTE | 2023-10-01 08:52 | PM.IMPN ---
Progress Note: A&P Assessment and Plan (1) Palliative care encounter: Code(s): Z51.5 - Encounter for palliative care Status: Acute Assessment and Plan: Reason patient hospice criteria due to requiring continuous IV hydromorphone for control of pain PRN palliative regimen ordered 09/30 discussed care and prognosis will with son, [id number], and granddaughter at bedside (2) Chronic kidney disease, stage IV (severe): Code(s): N18.4 - Chronic kidney disease, stage 4 (severe) Status: Chronic (3) LEXUS (acute kidney injury): Code(s): N17.9 - Acute kidney failure, unspecified Status: Acute (4) Atrial fibrillation: Code(s): I48.91 - Unspecified atrial fibrillation Status: Chronic (5) Influenza A: Code(s): J10.1 - Influenza due to other identified influenza virus with other respiratory manifestations Status: Acute (6) CHF (congestive heart failure): Code(s): I50.9 - Heart failure, unspecified Status: Acute (7) Essential hypertension: Code(s): I10 - Essential (primary) hypertension Status: Chronic (8) Alzheimer's disease, unspecified: Code(s): G30.9 - Alzheimer's disease, unspecified; F02.80 - Dementia in other diseases classified elsewhere, unspecified severity, without behavioral disturbance, psychotic disturbance, mood disturbance, and anxiety Status: Acute (9) Acute respiratory failure with hypoxia: Code(s): J96.01 - Acute respiratory failure with hypoxia Status: Acute (10) Bacteremia: Code(s): R78.81 - Bacteremia Status: Acute Subjective Date/time seen: 10/01/23 08:52 Interval history: Comfortable unless moved or having vitals taken. Review of Systems Review of Systems: ROS unobtainable: Yes unobtainable due to medical condition Exam Narrative: HEENT: Pharyngeal mucosa pink and intact NECK: No JVD CHEST: Slightly coarse breath sounds. Normal effort. HEART: NL S1/S2, irregular, no murmur ABDOMEN: BS+ hypoactive, soft, nontender, no mass, no bruits EXTREMITIES: No edema NEUROLOGIC: CN intact and symmetric to inspection. MUSCULOSKELETAL: No gross deformity visual inspection PSYCH: Sleeping soundly and unresponsive to tactile and verbal stimuli Objective Data Vital Signs Vital Signs: Vital Signs - 24 hr 09/30/23 20:00 09/30/23 22:00 Temperature 96.5 F L Pulse Rate 130 H Respiratory Rate 20 Blood Pressure 114/68 Pulse Oximetry 96 100 Oxygen Delivery Nasal Cannula Oxygen Flow Rate 3 Intake/Output Intake/Output: Intake & Output 09/28/23 09/29/23 09/30/23 10/01/23 23:59 23:59 23:59 23:59 Output Total 125 Balance -125 Meds/Results Medications: Active Medications Generic Name Dose Route Start Last Admin Trade Name Freq PRN Reason Stop Dose Admin Acetaminophen 650 mg 09/30/23 18:28 Acetaminophen 650 Mg Suppository RECTAL Q4H PRN Fever Artificial Tears 1 drop 09/30/23 21:00 09/30/23 21:31 Artificial Tears Ophth Soln 15 Ml Bottle EACH EYE Not Given Q12HR WOLFGANG Artificial Tears 1 drop 09/30/23 18:52 Artificial Tears Ophth Soln 15 Ml Bottle EACH EYE PRN PRN Dry Eye(s) Bisacodyl 10 mg 09/30/23 18:55 Bisacodyl 10 Mg Suppository RECTAL DAILY PRN Constipation Diazepam 5 mg 09/30/23 18:57 10/01/23 02:40 Diazepam Inj (*Crx) 10 Mg/2 Ml Syringe IV PUSH 5 mg Q4H PRN Administration Anxiety Glycopyrrolate 0.1 mg 09/30/23 18:56 Glycopyrrolate Inj (*Sp) 0.2 Mg/Ml Vial IV PUSH Q4H PRN SECRETIONS Hydromorphone HCl 0.5 mg 09/30/23 18:26 Hydromorphone Hcl Inj (*Crx) 1 Mg/Ml Syr IV PUSH Q1H PRN Pain/DYSPNEA Hydromorphone HCl 50 mg/ 100 mls @ 0.5 mls/hr 09/30/23 18:25 09/30/23 19:33 Sodium Chloride IV CONT 0.25 mg/hr .Q24H WOLFGANG 0.5 mls/hr Administration 0.25 MG/HR Prochlorperazine Edisylate 10 mg 09/30/23 18:52 Proc
[2023-10-01 09:25] VITALS: O2SAT 96
--- NOTE | 2023-10-01 11:02 | PM.DS ---
DS: Admitting Diagnosis Discharge Date 09/30/23 Admitting Diagnosis fever DS: Discharge Diagnosis Discharge Diagnosis (1) Palliative care encounter: Code(s): Z51.5 - Encounter for palliative care Status: Acute (2) Chronic kidney disease, stage IV (severe): Code(s): N18.4 - Chronic kidney disease, stage 4 (severe) Status: Chronic (3) LEXUS (acute kidney injury): Code(s): N17.9 - Acute kidney failure, unspecified Status: Acute (4) Atrial fibrillation: Code(s): I48.91 - Unspecified atrial fibrillation Status: Chronic (5) Influenza A: Code(s): J10.1 - Influenza due to other identified influenza virus with other respiratory manifestations Status: Acute (6) CHF (congestive heart failure): Code(s): I50.9 - Heart failure, unspecified Status: Acute (7) Essential hypertension: Code(s): I10 - Essential (primary) hypertension Status: Chronic (8) Acute respiratory failure with hypoxia: Code(s): J96.01 - Acute respiratory failure with hypoxia Status: Acute (9) Bacteremia: Code(s): R78.81 - Bacteremia Status: Acute Plan Patient was made comfort measures only after long discussion with patient's daughter and granddaughter, evaluation for inpatient hospice ordered and completed by Dr. Robb. D/C to hospice care. DS: Summary Hospital Course Hospital Course: Patient condition continues to decline. She had a rough night in which she needed IV pain medication started and IV Valium given for likely muscle spasming. After attempting 4+ times over the past 2 days to get in touch with the family and POA, I was finally able to have a lengthy conversation with NIKITA and her daughter, Irish, regarding the patient condition, prognosis and hospice. Patient family would like to go forward with hospice at this time. Discussed comfort measures, confirmed they understood we will be stopping all further treatment and evaluation and will focus on making patient comfortable. Care coordination consulted for hospice evaluation. Dr. Robb evaluated and resumed her care for inpatient hospice late in the day on 09/30/23. d/c to hospice for duration of care. Status at Discharge Functional status at discharge: bed bound Overall status at discharge: patient is not back to baseline Time Spent with Patient Time attestation: Total time spent providing and/or coordinating discharge services: Exam Narrative: Exam from 09/30/23: General: Mildly ill-appearing elderly female. Not oriented or verbal. Not in acute distress. Neck: Supple. Respiratory: Coarse lung sounds heard anteriorly with crackles at the bases. Cardiovascular: Irregular rhythm with S1-S2. Gastrointestinal: Abdomen is soft, obese, nontender, and nondistended with positive bowel sounds. Skin: Warm and dry. Chronic hyperpigmentation of the lower legs. Extremities: No cyanosis or clubbing. 2+ pitting edema softening towards the knees. Radial and pedal pulses intact. Neurological: non-verbal. unable to assess Psychiatric: visibly uncomfortably, non verbal. random moans and short bursts of crying out Discharge Plan Discharge Attending physician on discharge: Raimundo Jimenez Discharging Clinician: Luz Maria De La Rosa Patient Disposition: Hospice - Medical Facility Stand Alone Forms: General Discharge Information Discharge Medications: Discontinued hydrocodone-acetaminophen 7.5-325 mg tablet 1 tablet PO Q8H PRN (Reason: Pain (Scale Score 6-10)) Date of admission: 09/30/23 17:23 Primary Care Provider: Edward Lindsay Admitting Provider: Don Robb Attending physician on admission: Don Robb Condition: Serious
[2023-10-01 18:19] VITALS: PULSE 50; RESP 8
[2023-10-01] MEDS: HYDROmorphone HCL/PF (*CRX) 50 MG in SODIUM CHLORIDE 0.9% IV 95 ML IV CONT (18:19)
[2023-10-01 20:00] VITALS: RESP 12; O2SAT 96
[2023-10-02] VITALS: BP 93/51; PULSE 129; RESP 22; TEMP 36.9; O2SAT 88
[2023-10-02] MEDS: HYDROmorphone HCL INJ (*CRX) 1 MG/ML SYR 0.5 MG IV PUSH (00:56)
[2023-10-02] MEDS: diazePAM INJ (*CRX) 10 MG/2 ML SYRINGE 5 MG IV PUSH (01:34)
[2023-10-02 08:00] VITALS: O2SAT 90
[2023-10-02 12:22] VITALS: BP 98/54; PULSE 92; RESP 20; TEMP 36.3; O2SAT 94
--- NOTE | 2023-10-02 15:46 | PM.IMPN ---
Progress Note: A&P Assessment and Plan (1) Palliative care encounter: Code(s): Z51.5 - Encounter for palliative care Status: Acute Assessment and Plan: Reason patient hospice criteria due to requiring continuous IV hydromorphone for control of pain PRN palliative regimen ordered 09/30 discussed care and prognosis will with son, [id number], and granddaughter at bedside 10/02 increased hydromorphone to 0.5 mg/hr and bolus to 1 mg q 1hr prn (2) Chronic kidney disease, stage IV (severe): Code(s): N18.4 - Chronic kidney disease, stage 4 (severe) Status: Chronic (3) LEXUS (acute kidney injury): Code(s): N17.9 - Acute kidney failure, unspecified Status: Acute (4) Atrial fibrillation: Code(s): I48.91 - Unspecified atrial fibrillation Status: Chronic (5) Influenza A: Code(s): J10.1 - Influenza due to other identified influenza virus with other respiratory manifestations Status: Acute (6) CHF (congestive heart failure): Code(s): I50.9 - Heart failure, unspecified Status: Acute (7) Essential hypertension: Code(s): I10 - Essential (primary) hypertension Status: Chronic (8) Alzheimer's disease, unspecified: Code(s): G30.9 - Alzheimer's disease, unspecified; F02.80 - Dementia in other diseases classified elsewhere, unspecified severity, without behavioral disturbance, psychotic disturbance, mood disturbance, and anxiety Status: Acute (9) Acute respiratory failure with hypoxia: Code(s): J96.01 - Acute respiratory failure with hypoxia Status: Acute (10) Bacteremia: Code(s): R78.81 - Bacteremia Status: Acute Subjective Date/time seen: 10/02/23 15:46 Interval history: Required prn dosing at least twice during the past 24 hours. Review of Systems Review of Systems: ROS unobtainable: Yes unobtainable due to medical condition Exam Narrative: HEENT: Pharyngeal mucosa pink and intact NECK: No JVD CHEST: Slightly coarse breath sounds. Normal effort. HEART: NL S1/S2, irregular, no murmur ABDOMEN: BS+ hypoactive, soft, nontender, no mass, no bruits EXTREMITIES: No edema NEUROLOGIC: CN intact and symmetric to inspection. MUSCULOSKELETAL: No gross deformity visual inspection PSYCH: Sleeping soundly and unresponsive to tactile and verbal stimuli Objective Data Vital Signs Vital Signs: Vital Signs - 24 hr 10/01/23 18:19 10/01/23 18:19 10/01/23 20:00 Temperature Pulse Rate 50 L 50 L Respiratory Rate 8 L 8 L 12 Blood Pressure Pulse Oximetry 96 Oxygen Delivery Nasal Cannula Oxygen Flow Rate 3 10/02/23 00:00 10/02/23 12:22 Temperature 98.4 F 97.4 F L Pulse Rate 129 H 92 Respiratory Rate 22 H 20 Blood Pressure 93/51 L 98/54 L Pulse Oximetry 88 L 94 Oxygen Delivery Oxygen Flow Rate Intake/Output Intake/Output: Intake & Output 09/29/23 09/30/23 10/01/23 10/02/23 23:59 23:59 23:59 23:59 Intake Total 100 Output Total 180 400 Balance -80 -400 Meds/Results Medications: Active Medications Generic Name Dose Route Start Last Admin Trade Name Freq PRN Reason Stop Dose Admin Acetaminophen 650 mg 09/30/23 18:28 Acetaminophen 650 Mg Suppository RECTAL Q4H PRN Fever Artificial Tears 1 drop 09/30/23 21:00 10/01/23 21:50 Artificial Tears Ophth Soln 15 Ml Bottle EACH EYE Not Given Q12HR [place]OLFGANG Artificial Tears 1 drop 09/30/23 18:52 Artificial Tears Ophth Soln 15 Ml Bottle EACH EYE PRN PRN Dry Eye(s) Bisacodyl 10 mg 09/30/23 18:55 Bisacodyl 10 Mg Suppository RECTAL DAILY PRN Constipation Diazepam 5 mg 09/30/23 18:57 10/02/23 01:34 Diazepam Inj (*Crx) 10 Mg/2 Ml Syringe IV PUSH 5 mg Q4H PRN Administration Anxiety Glycopyrrolate 0.1 mg 09/30/23 18:56 Glycopyrrolate Inj (*Sp) 0.2 Mg/Ml Vial IV PUSH Q4H PRN SECRETIONS Hydromorphone HCl 0.5 mg 09/30/23 1
[2023-10-02 16:40] VITALS: PULSE 114; RESP 16
[2023-10-02] MEDS: ARTIFICIAL TEARS OPHTH SOLN 15 ML BOTTLE 1 DROP EACH EYE ×2 (16:48→22:35)
[2023-10-02 18:38] VITALS: PULSE 111; RESP 18
[2023-10-02] MEDS: HYDROmorphone HCL/PF (*CRX) 50 MG in SODIUM CHLORIDE 0.9% IV 95 ML IV CONT (18:38)
[2023-10-02 20:00] VITALS: BP 98/42; PULSE 131; RESP 18; TEMP 37; O2SAT 92
[2023-10-03 07:57] VITALS: BP 78/38; PULSE 115; RESP 16; TEMP 36.3; O2SAT 95
[2023-10-03 08:00] VITALS: PULSE 115; RESP 16; O2SAT 92
[2023-10-03 09:02] VITALS: O2SAT 92
[2023-10-03] MEDS: ARTIFICIAL TEARS OPHTH SOLN 15 ML BOTTLE 1 DROP EACH EYE (10:17)
--- NOTE | 2023-10-03 15:46 | PM.IMPN ---
Progress Note: A&P Assessment and Plan (1) Palliative care encounter: Code(s): Z51.5 - Encounter for palliative care Status: Acute Assessment and Plan: Reason patient hospice criteria due to requiring continuous IV hydromorphone for control of pain PRN palliative regimen ordered 09/30 discussed care and prognosis will with son, [id number], and granddaughter at bedside 10/02 increased hydromorphone to 0.5 mg/hr and bolus to 1 mg q 1hr prn 10/03 discussed care and prognosis with granddaughter and [employer] airspace control officer at bedside (2) Acute respiratory failure with hypoxia: Code(s): J96.01 - Acute respiratory failure with hypoxia Status: Acute (3) Bacteremia: Code(s): R78.81 - Bacteremia Status: Acute (4) Influenza A: Code(s): J10.1 - Influenza due to other identified influenza virus with other respiratory manifestations Status: Acute (5) Chronic kidney disease, stage IV (severe): Code(s): N18.4 - Chronic kidney disease, stage 4 (severe) Status: Chronic (6) LEXUS (acute kidney injury): Code(s): N17.9 - Acute kidney failure, unspecified Status: Acute (7) Atrial fibrillation: Code(s): I48.91 - Unspecified atrial fibrillation Status: Chronic (8) CHF (congestive heart failure): Code(s): I50.9 - Heart failure, unspecified Status: Acute (9) Essential hypertension: Code(s): I10 - Essential (primary) hypertension Status: Chronic (10) Alzheimer's disease, unspecified: Code(s): G30.9 - Alzheimer's disease, unspecified; F02.80 - Dementia in other diseases classified elsewhere, unspecified severity, without behavioral disturbance, psychotic disturbance, mood disturbance, and anxiety Status: Acute Subjective Date/time seen: 10/03/23 15:46 Interval history: Remains comfortable on hydromorphone 0.5 mg/hr. Review of Systems Review of Systems: ROS unobtainable: Yes unobtainable due to medical condition Exam Narrative: HEENT: Pharyngeal mucosa pink and intact NECK: No JVD CHEST: Slightly coarse breath sounds. Normal effort. HEART: NL S1/S2, irregular, no murmur ABDOMEN: BS+ hypoactive, soft, nontender, no mass, no bruits EXTREMITIES: No edema NEUROLOGIC: CN intact and symmetric to inspection. MUSCULOSKELETAL: No gross deformity visual inspection PSYCH: Sleeping soundly and unresponsive to tactile and verbal stimuli Objective Data Vital Signs Vital Signs: Vital Signs - 24 hr 10/02/23 16:40 10/02/23 18:38 10/02/23 18:38 Temperature Pulse Rate 114 H 111 H 111 H Respiratory Rate 16 18 18 Blood Pressure Pulse Oximetry Oxygen Delivery Oxygen Flow Rate 10/02/23 20:00 10/02/23 20:00 10/03/23 07:57 Temperature 98.6 F 97.3 F L Pulse Rate 131 H 115 H Respiratory Rate 18 16 Blood Pressure 98/42 L 78/38 L Pulse Oximetry 92 92 95 Oxygen Delivery Nasal Cannula Oxygen Flow Rate 3 10/03/23 09:02 10/03/23 08:00 Temperature Pulse Rate 115 H Respiratory Rate 16 Blood Pressure Pulse Oximetry 92 92 Oxygen Delivery Nasal Cannula Nasal Cannula Oxygen Flow Rate 3 3 Intake/Output Intake/Output: Intake & Output 09/30/23 10/01/23 10/02/23 10/03/23 23:59 23:59 23:59 23:59 Intake Total 100 100 Output Total 180 400 100 Balance -80 -300 -100 Meds/Results Medications: Active Medications Generic Name Dose Route Start Last Admin Trade Name Freq PRN Reason Stop Dose Admin Acetaminophen 650 mg 09/30/23 18:28 Acetaminophen 650 Mg Suppository RECTAL Q4H PRN Fever Artificial Tears 1 drop 09/30/23 21:00 10/03/23 10:17 Artificial Tears Ophth Soln 15 Ml Bottle EACH EYE 1 drop Q12HR WOLFGANG Administration Artificial Tears 1 drop 09/30/23 18:52 Artificial Tears Ophth Soln 15 Ml Bottle EACH EYE PRN PRN Dry Eye(s) Bisacodyl 10 mg 09/30/23 18:55 Bisacodyl 10 Mg Suppository RECTAL DAILY PRN Co
--- NOTE | 2023-10-04 15:27 | P.DN_ITS ---
Discharge Summary Date and Time Date of : 10/03/23 Time of : 17:55 Provider Pronounced By: ERASMO TORRES RN Probable Cause of Probable Cause of : MRSA BACTEREMIA WITH SEPSIS Summary Hospital Course: Admitted to inpatient hospice service for symptoms management. Medications were titrated to comfort. Mrs. Mcbride peacefully on 10/03/2023. Additional Data Confirmation of as documented by pronouncing clinician: Pupillary Reflex, Palpable Pulses, Response to Stimuli, Heart Tones and Breath Sounds Name of Provider Notified: DR OTTO Time Provider Notified: 18:03 Provider Requests Autopsy: No Family Requests Autopsy: No Analyst [employer] Notified: Yes Date [facility] Notified of : 10/03/23 Time [facility] Notified of : 18:10
== END 2023-10-03 19:00 | disposition expired | DRG 951 ==
PROVIDERS: Admitting Provider Internal Medicine; PCP Hospitalist; Visit Provider Internal Medicine
DX: Z51.5 Encounter for palliative care (principal); A41.9 Sepsis, unspecified organism; R65.20 Severe sepsis without septic shock; J96.01 Acute respiratory failure with hypoxia; N17.9 Acute kidney failure, unspecified; I13.0 Hypertensive heart and chronic kidney disease with heart failure and stage 1 through stage 4 chronic kidney disease, or unspecified chronic kidney disease; N18.4 Chronic kidney disease, stage 4 (severe); J10.1 Influenza due to other identified influenza virus with other respiratory manifestations; I50.9 Heart failure, unspecified; A49.02 Methicillin resistant Staphylococcus aureus infection, unspecified site; I48.91 Unspecified atrial fibrillation; G30.9 Alzheimer's disease, unspecified; F02.80 Dementia in other diseases classified elsewhere, unspecified severity, without behavioral disturbance, psychotic disturbance, mood disturbance, and anxiety; Z66 Do not resuscitate
CPT/HCPCS: A9270; J1170; J3360